=== PATIENT | female | born 1945 | race Caucasian/White ===

== ENCOUNTER → 2017-07-07 09:41 | Outpatient (CLI) | payer MEDICARE, OTHER, SELFPAY ==
[2017-07-07 10:23] VITALS: PULSE 85; PULSE 86; PULSE 91; PULSE 94; PULSE 95; PULSE 96; PULSE 98; O2SAT 91; O2SAT 92; O2SAT 93; O2SAT 96
--- NOTE | 2017-07-07 10:25 | CPS ---
Patient wears 2-3 lpm oxygen at home with ambulation and wears a Bipap at home. Patient had to take a couple of short breaks during testing due to hip pain.
--- NOTE | 2017-07-08 08:06 | WT_ITS ---
PSN 6 Minute Walk Test - 6 Minute Walk Test 6 Minute Walk Test: 6 Minute Walk Test PSN:6-Minute Walk Test Start: 07/07/17 10: 23 Freq: Status: Active Protocol: [id number] Document 07/07/17 10:23 KAREN (Rec: 07/07/17 10:27 KAREN [id number]) 6 Minute Walk Test Date Performed 07/07/17 Time Performed 10:10 Height 5 ft Weight: 57.606 kg Weight in Pounds 127.[address]: Serafin Hernadez Assistive device used: None Pre-test Oxygen Delivery Method Room Air Pulse Ox (%) 93 Pulse Rate (60-100 beats/min) 85 Dyspnea Hipolito Scale (0-10) 0 Exertion Hipolito Scale (6-20) 6 1st minute Oxygen Delivery Method Room Air Pulse Ox (%) 92 Pulse Rate (60-100 beats/min) 91 2nd minute Oxygen Delivery Method Room Air Pulse Ox (%) 91 Pulse Rate (60-100 beats/min) 95 Number of Rests Taken 1 3rd minute Oxygen Delivery Method Room Air Pulse Ox (%) 91 Pulse Rate (60-100 beats/min) 96 4th minute Oxygen Delivery Method Room Air Pulse Ox (%) 93 Pulse Rate (60-100 beats/min) 98 Number of Rests Taken 1 5th minute Oxygen Delivery Method Room Air Pulse Ox (%) 93 Pulse Rate (60-100 beats/min) 91 6th minute Oxygen Delivery Method Room Air Pulse Ox (%) 92 Pulse Rate (60-100 beats/min) 94 Dyspnea Hipolito Scale (0-10) 3 Exertion Hipolito Scale (6-20) 14 Reported Symptoms Increased Work of Breathing Post-test Oxygen Delivery Method Room Air Pulse Ox (%) 96 Pulse Rate (60-100 beats/min) 86 Full Laps Walked 10 Partial Lap, Number of Tiles Walked 47 Total Distance Walked (ft) 637 07/07/17 10:25 Cardiopulmonary Services by Charisse Edwards Patient wears 2-3 lpm oxygen at home with ambulation and wears a Bipap at home. Patient had to take a couple of short breaks during testing due to hip pain. Initialized on 07/07/17 10:25 - END OF NOTE - Interpretation Interpretation: The patient was able to ambulate only 637 feet over the course of 6 minutes on room air with no assistive devices, but 2 breaks secondary to shortness of breath and hip pain. The patient was noted to have a decreased baseline saturation of 93%, but only desaturated to 91% with ambulation. These findings are consistent with a musculoskeletal and respiratory limitation exercise tolerance. - Recommendations Recommendations: No supplemental oxygen is indicated at this time.
== END ==
PROVIDERS: Family Provider Student in an Organized Health Care Education/Training Program; PCP Student in an Organized Health Care Education/Training Program; Visit Provider Internal Medicine Critical Care Medicine
DX: J44.9 Chronic obstructive pulmonary disease, unspecified (principal)
CPT/HCPCS: 94618

== ENCOUNTER → 2017-07-08 08:47 | Outpatient (CLI) | payer MEDICARE, OTHER, SELFPAY ==
--- NOTE | 2017-07-08 14:14 | PFTCOMP ---
COMPLETE PULMONARY FUNCTION TEST INTERPRETATION Brief HPI: Patient is a 71 year old female, currently under the care of Dr. Hernadez, who presents to [facility] for complete pulmonary function tests secondary to diagnosis of COPD. Respiratory therapist reports good effort and reproducible results. Interpretation: Forced expiration spirometry shows a severe large airways obstructive ventilatory defect with an FEV1 of 78% predicted. There is a significant bronchodilator response in FVC by ATS criteria. Spirograms are of good quality and plateau slowly, indicating slowly emptying areas of the lungs. The respiratory flow volume loop shows decreased expiratory flow rates at all lung volumes consistent with airway obstruction. Lung volumes by body plethysmography show a normal total lung capacity at 4.49 L, 112% predicted. FRC and RV are elevated out of proportion. Lung volume measurements are consistent with air-trapping. Diffusion capacity by carbon monoxide is decreased at 47% predicted. The airway resistance is elevated. Compared to previous pulmonary function tests from 12/03/2016, there has been no significant change. Impression: Irreversible severe large airways obstructive ventilatory defect with a symmetric reduction diffusing capacity, resulting in air trapping and consistent with a diagnosis of COPD. There is been no significant change compared to previous.
--- NOTE | 2017-07-08 14:17 | PFTCOMP_ITS ---
COMPLETE PULMONARY FUNCTION TEST INTERPRETATION Brief HPI: Patient is a 71 year old female, currently under the care of Dr. Hernadez , who presents to [facility] for complete pulmonary function tests secondary to diagnosis of COPD. Respiratory therapist reports good effort and reproducible results. Interpretation: Forced expiration spirometry shows a severe large airways obstructive ventilatory defect with an FEV1 of 78% predicted. There is a significant bronchodilator response in FVC by ATS criteria. Spirograms are of good quality and plateau slowly, indicating slowly emptying areas of the lungs. The respiratory flow volume loop shows decreased expiratory flow rates at all lung volumes consistent with airway obstruction. Lung volumes by body plethysmography show a normal total lung capacity at 4.49 L , 112% predicted. FRC and RV are elevated out of proportion. Lung volume measurements are consistent with air-trapping. Diffusion capacity by carbon monoxide is decreased at 47% predicted. The airway resistance is elevated. Compared to previous pulmonary function tests from 12/03/2016, there has been no significant change. Impression: Irreversible severe large airways obstructive ventilatory defect with a symmetric reduction diffusing capacity, resulting in air trapping and consistent with a diagnosis of COPD. There is been no significant change compared to previous.
== END ==
PROVIDERS: Family Provider Student in an Organized Health Care Education/Training Program; PCP Student in an Organized Health Care Education/Training Program; Visit Provider Internal Medicine Critical Care Medicine
DX: J44.9 Chronic obstructive pulmonary disease, unspecified (principal); Z72.0 Tobacco use
CPT/HCPCS: 94060; 94726; 94729

== ENCOUNTER 2017-07-08 18:55 | Inpatient (IN) | payer MEDICARE, OTHER, SELFPAY ==
[2017-07-08] VITALS (9 sets, daily range): BP systolic 113–151; BP diastolic 58–99; PULSE 81–96; RESP 16–24; TEMP 36.3–36.7; O2SAT 95–98; BMI 24.2
--- NOTE | 2017-07-08 19:20 | EKG12_ITS ---
Test Reason : CP Blood Pressure : / mmHG Vent. Rate : 097 BPM Atrial Rate : 097 BPM P-R Int : 158 ms QRS Dur : 076 ms QT Int : 350 ms P-R-T Axes : 083 047 065 degrees QTc Int : 444 ms Sinus rhythm with occasional Premature ventricular complexes Nonspecific ST abnormality Abnormal ECG Confirmed by REBECCA PAREDES ([id number]), editorial project manager ANN MENDIETA ([id number]) on 07/19/2017 6:24:37 PM Referred By: JYOTHI Confirmed By:REBECCA PAREDES
--- NOTE | 2017-07-08 19:20 | RAD_ITS ---
XR Chest 1 View INDICATION: chest pain, SOB COMPARISON: None FINDINGS: Heart size and pulmonary vascularity are within normal limits. The lungs are clear without evidence of airspace consolidation or pleural effusion. The osseous structures are grossly unremarkable. RAD/Chest 1 View (Portable) IMPRESSION: No radiographic evidence of acute intrathoracic disease. at 1946 Reported and signed by: Erin Eller MD Electronically Signed: Erin Eller MD at 19:46 EDT Tel , Service support ,
[2017-07-08] MEDS: Ipratropium/Albuterol Sulfate 3 ML AMPUL.NEB INHALATION (19:32)
[2017-07-08] MEDS: 0.9% Normal Saline 1,000 ML 150 ML IV (19:46)
[2017-07-08] MEDS: Aspirin 81 MG TAB.CHEW 324 MG PO (19:46)
[2017-07-08 19:48] LABS: Absolute Lymphocyte Count 2.08 X10^3/ul (0.83-4.51); Absolute Neutrophil Count 7.4 X10^3/uL (2.0-7.7); Basophil# 0.04 X10^3/uL; Basophil% 0.4 % (0-1); Eosinophil# 0.18 X10^3/uL; Eosinophils% 1.6 % (0-5); Hematocrit 42.7 % (37-47); Lymphocyte # 2.08 X10^3/ul (4.0); Mean Corp Hgb Conc 32.8 g/gl (32-36); Mean Corpuscular Hgb 29.5 pg (27.0-32.0); Mean Corpuscular Volume 90.1 fL (81-99); Mean Platelet Vol. 10.4 fl (6.2-12.0); Monocyte# 1.24 X10^3/uL; Monocyte% 11.3 % (0-10); Neutrophil % 67.4 % (47-70); Platelet Count 283 K/mm3 (150-450); RBC Distribution Width CV 13.6 % (11.6-14.6); RBC Distribution Width SD 44.4 fl (35.1-43.9); Red Blood Count 4.74 M/mm3 (4.2-5.4)
[2017-07-08 19:51] LABS: POSITIVE COUNT NO; POSITIVE DIFFERENTIAL NO; POSITIVE MORPHOLOGY NO
[2017-07-08 20:01] LABS: D-Dimer Quantitative (DVT/PE) < 0.27 FEU/ug/m (0.27-0.49)
[2017-07-08 20:06] LABS: Anion Gap 7 (5-15); BUN 9 mg/dL (7-18); BUN/Creat Ratio 11.2 RATIO (10-20); Calcium,Total 9.2 mg/dL (8.5-10.1); Chloride 104 mmol/L (98-107); EST Glomerular Filtration Rate 75 mL/min (>60); Est Glom Filt Rate - Afr Amer 91 mL/min (>60); Estimated Creatinine Clearance 47.67 ml/min; Glucose 113 mg/dL (74-106); Potassium 3.6 mmol/L (3.5-5.1); Sodium Level 139 mmol/L (136-145)
[2017-07-08] MEDS: MethylPREDNISolone 125 MG/2 ML Vial IV (20:46)
--- NOTE | 2017-07-08 20:49 | PCM.HP.STD ---
Problem List (1) COPD exacerbation Status: Acute (2) Chest pain Status: Acute (3) Tobacco abuse Status: Chronic (4) COPD (chronic obstructive pulmonary disease) Status: Chronic Qualifiers: COPD type: unspecified COPD Qualified Code(s): J44.9 - Chronic obstructive pulmonary disease, unspecified (5) HTN (hypertension) Status: Chronic Qualifiers: Hypertension type: essential hypertension Qualified Code(s): I10 - Essential (primary) hypertension (6) Diabetes Status: Chronic Qualifiers: Diabetes mellitus type: type 2 Diabetes mellitus moth exterminator insulin use: without snf use Diabetes mellitus complication status: with unspecified complications Qualified Code(s): E11.8 - Type 2 diabetes mellitus with unspecified complications (7) Psoriasis Status: Chronic (8) Chronic respiratory failure with hypoxia Status: Chronic History of Present Illness Date of Admission: 07/08/17 Chief Complaint: Dyspnea, Chest Pain The patient is a 71 y/o F w/ PMHx: Tobacco use, Chronic COPD w/ Chronic Hypoxic Respiratory Failure (2L NC), Diabetes mellitus type II, HTN, HLD, Psoriasis who presents to the [facility] ED on 07/08/17 with history of onset severe onset stabbing chest discomfort rated 10/10, specifically focally underneath bilateral breast with associated dyspnea with no diaphoresis, nausea or emesis resolving after approximately 15-30 seconds with reoccurrence with concurrent worsening dyspnea and wheezing. In the emergency room upon presentation patient was extremely dyspneic with increased work of breathing, accessory muscle usage and wheezing diffusely. In the emergency room following aerosol administration patient has resolution of chest discomfort which had recurred and also dyspnea as well as wheezing. Workup in the ED included afebrile, heart rate 96, BP 113/58, respiratory rate currently 20, 97% on 2 L nasal cannula, CBC with WBC 11, hemoglobin 14, platelet 283 with increased mono percent, d-dimer unremarkable, BMP with glucose 113, troponin less than 0.015, EKG with nonspecific ST changes which appear chronic compared to prior, chest x-ray with chronic changes. In the emergency room patient administered DuoNeb, albuterol, aspirin, Solu-Medrol, normal saline. 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 Nocturnal hypoxia G47.34 Shortness of breath R06.02 Stage 3 severe COPD by GOLD classification J44.9 Allergies hydrocodone Adverse Reaction (Verified 07/08/17 19:01) Nausea levofloxacin [From Levaquin] Adverse Reaction (Verified 07/08/17 19:01) Shortness of breath Home Medications: Ambulatory Orders Medication Instructions Recorded Albuterol Aerosols [Ventolin 2.5 mg INHALATION Q4H PRN #25 vial 09/04/16 Aerosols] Benazepril/Hydrochlorothiazide 1 tab PO DAILY 09/04/16 [Benazepril-Hctz 10-12.5 mg Tab] Nebulizer [Aeroneb Go Nebulizer] 1 ea MC Q4H PRN PRN #1 ea 09/04/16 Omeprazole 1 tab PO DAILY 09/04/16 Sertraline HCl [Zoloft] 50 mg PO DAILY 09/04/16 Ascorbic Acid [Vitamin C] 1 tab PO DAILY 11/01/16 Cranberry 1 tab PO DAILY 11/01/16 Ezetimibe [Zetia] 10 mg PO DAILY 11/01/16 Montelukast [Singulair] 10 mg PO DAILY 11/01/16 Ubidecarenone [Coenzyme Q-10] 1 tab PO DAILY 11/01/16 Budesonide/Formoterol 160/4.5 2 puff INHALATION BID 11/04/16 [Symbicort 160/4.5 Mcg Inhaler (SP)] glipiZIDE [Glucotrol] 10 mg PO BIDAC #60 tab 11/04/16 albuterol sulfate HFA 90 2 puff INHALATION Q4H PRN g 01/20/17 mcg/actuation aerosol inhaler ipratropium 20 mcg-albuterol 100 1 puff INHALATION Q6H PRN 01/20/17 mcg/actuation mist for inhalation tiotropium bromide 2.5 2 puff INHALATION QDAY #1 ea 01/20/17 mcg/actuation mist for inhalation Surgical History: Surgical History (Last Reviewed 04/14/17 @ 11:05 by Marilia Hurley) H/O tubal ligation Z98.51 1975 Surgical History: no surgical history Psychiatric History: No pertinent psych hx 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 Tobacco Use: Cigarettes Alcohol: None Drugs: None - *Family History Maternal Family History: Family History (Last Reviewed 04/14/17 @ 11:05 by Marilia Hurley) Mother Heart disease History Items: Heart Disease Paternal Family History: Family History (Last Reviewed 04/14/17 @ 11:05 by Marilia Hurley) Mother Heart disease History Items: - - Father with black lung in addition to history of Alzheimer's disease. Sibling Family History: Family History (Last Reviewed 04/14/17 @ 11:05 by Marilia Hurley) Mother Heart disease History Items: Cancer, - - skin cancer Review of Systems Constitutional: Reports: Malaise, Weakness, Fatigue. Denies: Chills, Fever, Weight Change HEENT: Denies: Head Aches, Sinus Congestion, Sinus Drainage Cardiovascular: Reports: Chest Pain. Denies: Palpitations Respiratory: Reports: Shortness of Breath, Shortness of breath at rest, Shortness of breath upon exertion, Wheezing. Denies: Cough, Sputum production Gastrointestinal: Denies: Abdominal Pain, Nausea, Vomiting Genitourinary: Denies: Dysuria Musculoskeletal: Reports: Back Pain. Denies: Joint Pain, Joint Tenderness Skin: Denies: Rash, Wounds Neurological: Denies: Numbness, Tingling, Focal weakness Psychiatric: Denies: Anxiety, Depression, Homicidal Ideations, Suicidal Ideations Hematologic/ Lymphatic: Denies: Easy Bruising, Easy Bleeding VTE Information - Inpt Only VTE Present on Admission: No VTE Mechan Device Prophylaxis: SCD's VTE Pharm Prophylaxis ordered?: Yes Patient Problems: Active and Suspected Problems (Last Reviewed 04/14/17 @ 11:05 by Marilia Hurley) COPD exacerbation (Acute) Chest pain (Acute) Subjective: Seated upright in the ED bed, notes feeling improved since initial presentation, less short of breath and no recurrent stabbing discomfort since aerosol administration. Objective: Physical Examination: General: awake, alert, oriented x 3 and cooperative, seated upright in the ED bed, notes improvement since initial presentation with no further chest discomfort and marketed improvement in breathing. Skin: normal color, turgor, no icterus, cyanosis except for diffuse extremity psoriasis which she notes is currently well controlled and following with physician outpatient. HEENT: AT/NC, EOMI, PERRLA, mildly dry MM, no carotid bruits or JVD noted. Lungs: Severely diminished breath sounds diffusely, greater bilateral bases, still soft and expiratory wheeze noted, improved respiratory rate, no accessory muscle usage currently, remarkably improved since initial ED presentation. Heart: Regular rate and rhythm; no gallop, rub audible. Abdomen: soft, NTTP, ND, normal BS, no HSM. Extremities: no cyanosis, clubbing, or edema. Neurological: patient awake, alert, oriented x 3; cognitive function intact; pupils equally reactive to light and accomodation; cranial nerves II-XII grossly normal, moving all 4 extremities, no focal deficits, strength severely globally decreased secondary to acute presentation. Psychiatric: affect appears normal, no acute evidence of depressive or anxiety feelings. - Physical Exam Vital Signs Temp Pulse Resp BP Pulse Ox 97.4 F L 81 18 113/58 L 96 07/08/17 18:57 07/08/17 20:47 07/08/17 20:47 07/08/17 20:47 07/08/17 20:47 Oxygen Flow Rate (L/min) 2 Oxygen Delivery Method Nasal Cannula Weight: 123 lb 14.397 oz Body Mass Index (BMI) 24.2 Laboratory Tests Past 24 Hrs 07/08/17 07/08/17 07/08/17 19:35 19:35 19:35 WBC 11.0 RBC 4.74 Hgb 14.0 Hct 42.7 MCV 90.1 MCH 29.5 MCHC 32.8 RDW 13.6 RDW Differential 44.4 H Plt Count 283 MPV 10.4 Immature Gran % (Auto) 0.300 Neut % (Auto) 67.4 Lymph % (Auto) 19.0 Walsh % (Auto) 11.3 H Eos % (Auto) 1.6 Baso % (Auto) 0.4 Absolute Neuts (auto) 7.4 Absolute Lymphs (auto) 2.08 Total Counted Not Reportable D-Dimer Quant (PE/DVT) < 0.27 L Sodium 139 Potassium 3.6 Chloride 104 Carbon Dioxide 28.0 Anion Gap 7 BUN 9 Creatinine 0.80 Estim Creat Clear Calc 47.67 Est GFR (MDRD) Af Amer 91 Est GFR (MDRD) Non-Af 75 BUN/Creatinine Ratio 11.2 Glucose 113 H Calcium 9.2 Troponin I < 0.015 Assessment/Plan All Active Problems (Last Reviewed 04/14/17 @ 11:05 by Marilia Hurley) COPD exacerbation (Acute) Chest pain (Acute) The patient is a 71 y/o F w/ PMHx: Tobacco use, Chronic COPD w/ Chronic Hypoxic Respiratory Failure (2L NC), Diabetes mellitus type II, HTN, HLD, Psoriasis who presents to the [facility] ED on 07/08/17 with history of onset severe onset stabbing chest discomfort rated 10/10, specifically focally underneath bilateral breast with associated dyspnea with no diaphoresis, nausea or emesis resolving after approximately 15-30 seconds with reoccurrence with concurrent worsening dyspnea and wheezing. (1) Acute on Chronic COPD exacerbation Chronic Hypoxic Respiratory Failure: CXR w/ chronic changes, CBC on admission w/ no marked WBC elevation or shift, afebrile. Will admit to PCU given concurrent chest pain and EKG with non-specific ST-T changes although chronic appearing, maintain on oxygen with wean as tolerated to home oxygen supplementation, continue ATC duonebs, PRN albuterol, IV methylprednisolone, HOB, IS parameters, pending sputum cultures and respiratory viral panel. (2) Atypical Chest Pain: EKG in ED with non-specific ST-T changes although chronic appearing, CXR w/ chronic changes, initial trop <0.015. Will place on a monitored bed to assure no acute myocardial infarction with serial cardiac enzymes and EKGs. ASA, NG, morphine. FLP in AM. Mag pending. Given acute COPD exacerbation will defer initiation of stress testing until improved and possibly secondary to her acute pulmonary presentation. (3) Diabetes mellitus type II: Hold oral home regimen, ADA diet, accu checks w/ ISS. (4) Hypertension: Continue home regimen including SOTERO inhibitor, hydrochlorothiazide, PRN hydralazine. (5) Hyperlipidemia: Continue home Zetia regimen, fasting lipid panel in a.m. (6) Anxiety and Depression: Maintain on home regimen sertraline. (7) Tobacco Abuse: Encouraged cessation, inpatient consultation per RT, NR if desired. (8) GERD: PPI. (9) DVT Prophylaxis: SCDs, lovenox. Code Visit Inpatient E&M: 59950 Init Hosp L3
--- NOTE | 2017-07-08 21:00 | HP.PCM_ITS ---
Problem List (1) COPD exacerbation Status: Acute (2) Chest pain Status: Acute (3) Tobacco abuse Status: Chronic (4) COPD (chronic obstructive pulmonary disease) Status: Chronic Qualifiers: COPD type: unspecified COPD Qualified Code(s): J44.9 - Chronic obstructive pulmonary disease, unspecified (5) HTN (hypertension) Status: Chronic Qualifiers: Hypertension type: essential hypertension Qualified Code(s): I10 - Essential (primary) hypertension (6) Diabetes Status: Chronic Qualifiers: Diabetes mellitus type: type 2 Diabetes mellitus marine oil terminal superintendent insulin use: without detention use Diabetes mellitus complication status: with unspecified complications Qualified Code(s): E11.8 - Type 2 diabetes mellitus with unspecified complications (7) Psoriasis Status: Chronic (8) Chronic respiratory failure with hypoxia Status: Chronic History of Present Illness Date of Admission: 07/08/17 Chief Complaint: Dyspnea, Chest Pain The patient is a 71 y/o F w/ PMHx: Tobacco use, Chronic COPD w/ Chronic Hypoxic Respiratory Failure (2L NC), Diabetes mellitus type II, HTN, HLD, Psoriasis who presents to the [facility] ED on 07/08/17 with history of onset severe onset stabbing chest discomfort rated 10/10, specifically focally underneath bilateral breast with associated dyspnea with no diaphoresis, nausea or emesis resolving after approximately 15-30 seconds with reoccurrence with concurrent worsening dyspnea and wheezing. In the emergency room upon presentation patient was extremely dyspneic with increased work of breathing, accessory muscle usage and wheezing diffusely. In the emergency room following aerosol administration patient has resolution of chest discomfort which had recurred and also dyspnea as well as wheezing. Workup in the ED included afebrile, heart rate 96, BP 113/58, respiratory rate currently 20, 97% on 2 L nasal cannula, CBC with WBC 11, hemoglobin 14, platelet 283 with increased mono percent, d-dimer unremarkable, BMP with glucose 113, troponin less than 0.015, EKG with nonspecific ST changes which appear chronic compared to prior, chest x-ray with chronic changes. In the emergency room patient administered DuoNeb, albuterol, aspirin, Solu-Medrol , normal saline. 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 Nocturnal hypoxia G47.34 Shortness of breath R06.02 Stage 3 severe COPD by GOLD classification J44.9 Allergies hydrocodone Adverse Reaction (Verified 07/08/17 19:01) Nausea levofloxacin [From Levaquin] Adverse Reaction (Verified 07/08/17 19:01) Shortness of breath Home Medications: Ambulatory Orders Medication Instructions Recorded Albuterol Aerosols [Ventolin 2.5 mg INHALATION Q4H PRN #25 vial 09/04/16 Aerosols] Benazepril/Hydrochlorothiazide 1 tab PO DAILY 09/04/16 [Benazepril-Hctz 10-12.5 mg Tab] Nebulizer [Aeroneb Go Nebulizer] 1 ea MC Q4H PRN PRN #1 ea 09/04/16 Omeprazole 1 tab PO DAILY 09/04/16 Sertraline HCl [Zoloft] 50 mg PO DAILY 09/04/16 Ascorbic Acid [Vitamin C] 1 tab PO DAILY 11/01/16 Cranberry 1 tab PO DAILY 11/01/16 Ezetimibe [Zetia] 10 mg PO DAILY 11/01/16 Montelukast [Singulair] 10 mg PO DAILY 11/01/16 Ubidecarenone [Coenzyme Q-10] 1 tab PO DAILY 11/01/16 Budesonide/Formoterol 160/4.5 2 puff INHALATION BID 11/04/16 [Symbicort 160/4.5 Mcg Inhaler (SP)] glipiZIDE [Glucotrol] 10 mg PO BIDAC #60 tab 11/04/16 albuterol sulfate HFA 90 2 puff INHALATION Q4H PRN g 01/20/17 mcg/actuation aerosol inhaler ipratropium 20 mcg-albuterol 100 1 puff INHALATION Q6H PRN 01/20/17 mcg/actuation mist for inhalation tiotropium bromide 2.5 2 puff INHALATION QDAY #1 ea 01/20/17 mcg/actuation mist for inhalation Surgical History: Surgical History (Last Reviewed 04/14/17 @ 11:05 by Marilia Hurley) H/O tubal ligation Z98.51 1975 Surgical History: no surgical history Psychiatric History: No pertinent psych hx 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 Tobacco Use: Cigarettes Alcohol: None Drugs: None - *Family History Maternal Family History: Family History (Last Reviewed 04/14/17 @ 11:05 by Marilia Hurley) Mother Heart disease History Items: Heart Disease Paternal Family History: Family History (Last Reviewed 04/14/17 @ 11:05 by Marilia Hurley) Mother Heart disease History Items: - - Father with black lung in addition to history of Alzheimer's disease. Sibling Family History: Family History (Last Reviewed 04/14/17 @ 11:05 by Marilia Hurley) Mother Heart disease History Items: Cancer, - - skin cancer Review of Systems Constitutional: Reports: Malaise, Weakness, Fatigue. Denies: Chills, Fever, Weight Change HEENT: Denies: Head Aches, Sinus Congestion, Sinus Drainage Cardiovascular: Reports: Chest Pain. Denies: Palpitations Respiratory: Reports: Shortness of Breath, Shortness of breath at rest, Shortness of breath upon exertion, Wheezing. Denies: Cough, Sputum production Gastrointestinal: Denies: Abdominal Pain, Nausea, Vomiting Genitourinary: Denies: Dysuria Musculoskeletal: Reports: Back Pain. Denies: Joint Pain, Joint Tenderness Skin: Denies: Rash, Wounds Neurological: Denies: Numbness, Tingling, Focal weakness Psychiatric: Denies: Anxiety, Depression, Homicidal Ideations, Suicidal Ideations Hematologic/ Lymphatic: Denies: Easy Bruising, Easy Bleeding VTE Information - Inpt Only VTE Present on Admission: No VTE Mechan Device Prophylaxis: SCD's VTE Pharm Prophylaxis ordered?: Yes Patient Problems: Active and Suspected Problems (Last Reviewed 04/14/17 @ 11:05 by Marilia Hurley) COPD exacerbation (Acute) Chest pain (Acute) Subjective: Seated upright in the ED bed, notes feeling improved since initial presentation , less short of breath and no recurrent stabbing discomfort since aerosol administration. Objective: Physical Examination: General: awake, alert, oriented x 3 and cooperative, seated upright in the ED bed, notes improvement since initial presentation with no further chest discomfort and marketed improvement in breathing. Skin: normal color, turgor, no icterus, cyanosis except for diffuse extremity psoriasis which she notes is currently well controlled and following with physician outpatient. HEENT: AT/NC, EOMI, PERRLA, mildly dry MM, no carotid bruits or JVD noted. Lungs: Severely diminished breath sounds diffusely, greater bilateral bases, still soft and expiratory wheeze noted, improved respiratory rate, no accessory muscle usage currently, remarkably improved since initial ED presentation. Heart: Regular rate and rhythm; no gallop, rub audible. Abdomen: soft, NTTP, ND, normal BS, no HSM. Extremities: no cyanosis, clubbing, or edema. Neurological: patient awake, alert, oriented x 3; cognitive function intact; pupils equally reactive to light and accomodation; cranial nerves II-XII grossly normal, moving all 4 extremities, no focal deficits, strength severely globally decreased secondary to acute presentation. Psychiatric: affect appears normal, no acute evidence of depressive or anxiety feelings. - Physical Exam Vital Signs Temp Pulse Resp BP Pulse Ox 97.4 F L 81 18 113/58 L 96 07/08/17 18:57 07/08/17 20:47 07/08/17 20:47 07/08/17 20:47 07/08/17 20:47 Oxygen Flow Rate (L/min) 2 Oxygen Delivery Method Nasal Cannula Weight: 123 lb 14.397 oz Body Mass Index (BMI) 24.2 Laboratory Tests Past 24 Hrs 07/08/17 07/08/17 07/08/17 19:35 19:35 19:35 WBC 11.0 RBC 4.74 Hgb 14.0 Hct 42.7 MCV 90.1 MCH 29.5 MCHC 32.8 RDW 13.6 RDW Differential 44.4 H Plt Count 283 MPV 10.4 Immature Gran % (Auto) 0.300 Neut % (Auto) 67.4 Lymph % (Auto) 19.0 [place] % (Auto) 11.3 H Eos % (Auto) 1.6 Baso % (Auto) 0.4 Absolute Neuts (auto) 7.4 Absolute Lymphs (auto) 2.08 Total Counted Not Reportable D-Dimer Quant (PE/DVT) < 0.27 L Sodium 139 Potassium 3.6 Chloride 104 Carbon Dioxide 28.0 Anion Gap 7 BUN 9 Creatinine 0.80 Estim Creat Clear Calc 47.67 Est GFR (MDRD) Af Amer 91 Est GFR (MDRD) Non-Af 75 BUN/Creatinine Ratio 11.2 Glucose 113 H Calcium 9.2 Troponin I < 0.015 Assessment/Plan All Active Problems (Last Reviewed 04/14/17 @ 11:05 by Marilia Hurley) COPD exacerbation (Acute) Chest pain (Acute) The patient is a 71 y/o F w/ PMHx: Tobacco use, Chronic COPD w/ Chronic Hypoxic Respiratory Failure (2L NC), Diabetes mellitus type II, HTN, HLD, Psoriasis who presents to the [facility] ED on 07/08/17 with history of onset severe onset stabbing chest discomfort rated 10/10, specifically focally underneath bilateral breast with associated dyspnea with no diaphoresis, nausea or emesis resolving after approximately 15-30 seconds with reoccurrence with concurrent worsening dyspnea and wheezing. (1) Acute on Chronic COPD exacerbation Chronic Hypoxic Respiratory Failure: CXR w/ chronic changes, CBC on admission w/ no marked WBC elevation or shift, afebrile. Will admit to PCU given concurrent chest pain and EKG with non- specific ST-T changes although chronic appearing, maintain on oxygen with wean as tolerated to home oxygen supplementation, continue ATC duonebs, PRN albuterol , IV methylprednisolone, HOB, IS parameters, pending sputum cultures and respiratory viral panel. (2) Atypical Chest Pain: EKG in ED with non-specific ST-T changes although chronic appearing, CXR w/ chronic changes, initial trop <0.015. Will place on a monitored bed to assure no acute myocardial infarction with serial cardiac enzymes and EKGs. ASA, NG, morphine. FLP in AM. Mag pending. Given acute COPD exacerbation will defer initiation of stress testing until improved and possibly secondary to her acute pulmonary presentation. (3) Diabetes mellitus type II: Hold oral home regimen, ADA diet, accu checks w/ ISS. (4) Hypertension: Continue home regimen including SOTERO inhibitor, hydrochlorothiazide, PRN hydralazine. (5) Hyperlipidemia: Continue home Zetia regimen, fasting lipid panel in a.m. (6) Anxiety and Depression: Maintain on home regimen sertraline. (7) Tobacco Abuse: Encouraged cessation, inpatient consultation per RT, NR if desired. (8) GERD: PPI. (9) DVT Prophylaxis: SCDs, lovenox. Code Visit Inpatient E&M: 06057 Init Hosp L3
--- NOTE | 2017-07-08 21:13 | ED.DCSUM_ITS ---
- ER Visit Summary Date of Service: 07/08/17 Chief Complaint: [Chest pain] History of Present Illness: The patient is a 71 F [presents with chest pain underneath both breasts that started around 6:30 PM. Patient states that she is just gotten out of the shower when she developed the discomfort. Patient describes it as stabbing and rates it a 6 out of 10 currently. Patient states that she was in [place] last week. Patient denies any leg swelling. Patient tells me that she had pulmonary function testing done today as she has a history of COPD. Patient also has a history of diabetes, hypertension, and high cholesterol. Patient has no heart history. Patient states that the pain does not radiate anywhere and she has had no nausea or vomiting, diaphoresis, or shortness of breath.] Physical Examination: [HEENT-PERRLA, EOMI. Cranial nerves II through XII grossly intact. TMs clear. Mucous membranes moist. No adenopathy. Cardiovascular-regular rate and rhythm without murmur or ectopy Lungs-, patient tachypneic, decreased breath sounds bilaterally, expiratory wheezes throughout. No accessory muscle use or retractions. Abdomen-normoactive bowel sounds, soft, nontender, no rebound or rigidity, no peritoneal signs. Extremities-intact ?4, normal range of motion, normal pulses, atraumatic ] Test Results: [EKG obtained on arrival showed a sinus rhythm with a ventricular rate of 97 bpm with some nonspecific ST changes. CBC with differential showed a white count of 11, hemoglobin 14, hematocrit 43, platelets 283. Chemistries unremarkable. Troponin was less than 0.015. D-dimer was normal less than 0.27. Chest x-ray showed nothing acute.] Emergency Department Course and Treatment: [Patient received DuoNeb aerosol and Solu-Medrol]. Patient's wheezing resolved and patient's chest pain resolved. Treatment Plan: [Admit for further workup and evaluation] Disposition: [Admit] Impression: [Chest pain COPD exacerbation] This note was generated with [employer] dictation software. It may contain incorrect words, spelling, and punctuation that were not noted in review of the chart prior to signing ED Disposition - Plan for ED Patient: Chief Complaint: Chest Pain Referrals: Chico Bejarano DO [Primary Care Provider] -
[2017-07-08 23:55] LABS: Magnesium 1.9 mg/dL (1.6-2.6)
[2017-07-09] VITALS (15 sets, daily range): BP systolic 121–164; BP diastolic 57–71; PULSE 82–108; RESP 16–20; TEMP 36.7–36.9; O2SAT 94–96; BMI 24.3
[2017-07-09] MEDS: guaiFENesin 1,200 MG Tablet 1200 MG PO ×3 (01:19→21:48)
[2017-07-09 01:36] LABS: Bedside Glucose 299 mg/dL (70-110)
[2017-07-09] MEDS: Ipratropium/Albuterol Sulfate 3 ML AMPUL.NEB INHALATION ×5 (02:40→19:15)
[2017-07-09 03:10] LABS: Hematocrit 41.7 % (37-47); Hemoglobin 13.2 g/dl (12.0-15.0); Mean Corp Hgb Conc 31.7 g/gl (32-36); Mean Corpuscular Hgb 28.6 pg (27.0-32.0); Mean Corpuscular Volume 90.3 fL (81-99); Mean Platelet Vol. 10.7 fl (6.2-12.0); Platelet Count 275 K/mm3 (150-450); RBC Distribution Width CV 13.7 % (11.6-14.6); RBC Distribution Width SD 45.1 fl (35.1-43.9); Red Blood Count 4.62 M/mm3 (4.2-5.4); White Blood Count 10.8 K/mm3 (4.4-11.0)
[2017-07-09 03:11] LABS: Anion Gap 9 (5-15); BUN 13 mg/dL (7-18); BUN/Creat Ratio 13.6 RATIO (10-20); Calcium,Total 8.7 mg/dL (8.5-10.1); Chloride 109 mmol/L (98-107); Cholesterol 201 mg/dL (200); Creatinine, Serum 0.95 mg/dL (0.55-1.02); EST Glomerular Filtration Rate 62 mL/min (>60); Est Glom Filt Rate - Afr Amer 75 mL/min (>60); Estimated Creatinine Clearance 40.15 ml/min; Glucose 222 mg/dL (74-106); High Density Lipoprotein 48 mg/dL; Potassium 3.7 mmol/L (3.5-5.1); Sodium Level 145 mmol/L (136-145); Triglycerides 114 mg/dL; Very Low Density Lipoprotein 23 mg/dL (5-40)
[2017-07-09 03:19] LABS: Scan Indicated on CBC? Y/N NO
[2017-07-09] MEDS: 0.9% Normal Saline 1,000 ML 125 ML IV (03:21)
[2017-07-09] MEDS: Acetaminophen 325 MG Tablet 650 MG PO ×2 (03:21→11:47)
[2017-07-09 03:31] LABS: Bedside Glucose 272 mg/dL (70-110)
[2017-07-09 07:06] LABS: Bedside Glucose 225 mg/dL (70-110)
[2017-07-09] MEDS: Aspirin E.C. 81 MG Tablet PO (08:40)
[2017-07-09] MEDS: Enoxaparin 40 MG/0.4 ML Syringe SC (08:40)
[2017-07-09] MEDS: Pantoprazole Sodium 20 MG Tablet PO (08:43)
[2017-07-09] MEDS: Montelukast 10 MG Tablet PO (08:43)
[2017-07-09] MEDS: Ezetimibe 10 MG Tablet PO (08:43)
[2017-07-09] MEDS: Sertraline 50 MG Tablet PO (08:44)
[2017-07-09] MEDS: HYDROCHLOROTHIAZIDE 12.5 MG CAPSULE PO (08:48)
[2017-07-09] MEDS: Lisinopril 10 MG Tablet PO (08:48)
--- NOTE | 2017-07-09 09:26 | CASEMGMT ---
RN CM Assessment complete. DC Plan: Home on discharge. Intro role of CM to patient in room. States she is independent, does not use ambulatory DME. Has Home O2, Bipap and nebulizer. No dc needs identified. Cayetano SAINZN RN ACM
[2017-07-09 11:26] LABS: Bedside Glucose 236 mg/dL (70-110)
--- NOTE | 2017-07-09 11:46 | NURSING ---
wound photo: right arm skin tear
[2017-07-09] MEDS: 0.9% NaCl Peripheral Flush Adult/Peds IV ×2 (14:44→21:49)
--- NOTE | 2017-07-09 15:43 | CHAPLAIN ---
Type of Pastoral Visit _x__ Initial Visit ___ Follow-up Visit ___ On-call Visit ___ General Patient Visit ___ Spiritual Assessment ___ Family Conference ___ Bereavement ___ Rapid Response ___ Code Blue ___ Other (describe below) Pastoral Care Referral From _x__ Patient ___ Family ___ Nurse ___ Physician ___ Waxer Tender ___ Guzzler Builder ___ Other (describe below) Sacrament/Intervention _x__ Active listening ___ Anointing ___ Samaritan ___ Bereavement ___ Communion ___ Aye exploration ___ _x__ Life review _x__ Prayer ___ Reconciliation ___ Sacrament of Sick ___ Supportive presence ___ Wedding ___ Other (describe below) Pastoral Comments
[2017-07-09 16:46] LABS: Bedside Glucose 229 mg/dL (70-110)
--- NOTE | 2017-07-09 20:43 | PCM.PROGNOTE ---
Patient Problems: Active and Suspected Problems (Last Reviewed 04/14/17 @ 11:05 by Marilia Hurley) COPD exacerbation (Acute) Chest pain (Acute) Subjective: The patient is a 71-year-old female with a past medical history of COPD, tobacco dependence, hypertension, diabetes mellitus type 2, psoriasis, chronic respiratory failure with hypoxemia and hyperlipidemia who presented to the emergency department at [facility] on 07/08/2017 complaining of severe lower chest/upper abdominal pain after getting out of the shower. She has no hx of CAD. She has never had a stress test. In the ED she was wheezing diffusely and was in respiratory distress. She had resolution of the chest pain and the SOB after an aerosol in the ED. D- Dimer was unremarkable. She was afebrile. She was 97% saturated on a 2 L nasal cannula. EKG showed nonspecific ST and T-wave changes which did not appear to be significantly different than prior EKGs. Chest x-ray showed no acute findings. She was admitted to a monitored bed on PCU and serial cardiac enzymes were obtained and are negative. She did tell me that a couple days ago her had to give her the Heimlich manuever when she was choking on a piece of hard melon. She currently has no CP and no SOB. she denies palpitations. She has been afebrile since admission. Vital signs are stable but the pulse rate increases with activity. White blood cell count is still within normal limits. Electrolytes are unremarkable and the BUN is 13 with a creatinine of 0.95. Sugars are not adequately controlled and this is likely due to the steroids. - Physical Exam General: Alert, Oriented x3, Cooperative, No apparent distress HEENT: Atraumatic, PERRLA, EOMI, Normocephalic Neck: Supple, No Nodes, No Nuchal Rigidity, Trachea Midline, Thyroid Normal Size and Texture, Carotid Bruit, Right Lungs: No rhonchi, No rales, Diminished, Wheezes - Rare mild expiratory wheeze, - - She has no conversational dyspnea and is not tachypneic at rest. She has no accessory muscle use. There is symmetric expansion of the chest. Cardiovascular: Regular rate, Regular Rhythm, Normal S1, Normal S2, No Ectopic Activity, No rub noted, No Gallop Abdomen: Bowel Sounds Present, Soft, Non Tender, Non-Distended Extremities: No clubbing, No cyanosis, No edema Neurological: Cranial nerves II-XII grossly intact, Neuro grossly intact Psych/Mental Status: Normal Affect, Appropriate Vital Signs Temp Pulse Resp BP Pulse Ox 98.4 F 106 H 16 121/57 H 95 07/09/17 15:00 07/09/17 19:12 07/09/17 15:00 07/09/17 15:00 07/09/17 15:00 Oxygen Flow Rate (L/min) 2 Oxygen Delivery Method Nasal Cannula Weight: 124 lb 8.979 oz Body Mass Index (BMI) 24.3 Intake and Output for Last 24 Hours 07/07/17 07/08/17 07/09/17 23:59 23:59 23:59 Intake Total 1732 / 1732 Balance 1732 / 1732 Microbiology Past 72 Hours 07/09/17 05:25 Gram Stain - Final Sputum, Expectorated/Coughed 07/09/17 00:30 Respiratory Panel (PCR) - Final Mucosa - Nasopharyngeal Laboratory Tests Past 24 Hrs 07/08/17 07/08/17 07/09/17 23:03 23:03 02:33 WBC RBC Hgb Hct MCV MCH MCHC RDW RDW Differential Plt Count MPV Sodium 145 Potassium 3.7 Chloride 109 H Carbon Dioxide 27.0 Anion Gap 9 BUN 13 Creatinine 0.95 Estim Creat Clear Calc 40.15 Est GFR (MDRD) Af Amer 75 Est GFR (MDRD) Non-Af 62 BUN/Creatinine Ratio 13.6 Glucose 222 H Calcium 8.7 Magnesium 1.9 Troponin I < 0.015 Triglycerides 114 Cholesterol 201 H LDL Cholesterol 130 VLDL Cholesterol 23 HDL Cholesterol 48 07/09/17 07/09/17 02:33 02:33 WBC 10.8 RBC 4.62 Hgb 13.2 Hct 41.7 MCV 90.3 MCH 28.6 MCHC 31.7 L RDW 13.7 RDW Differential 45.1 H Plt Count 275 MPV 10.7 Sodium Potassium Chloride Carbon Dioxide Anion Gap BUN Creatinine Estim Creat Clear Calc Est GFR (MDRD) Af Amer Est GFR (MDRD) Non-Af BUN/Creatinine Ratio Glucose Calcium Magnesium Troponin I < 0.015 Triglycerides Cholesterol LDL Cholesterol VLDL Cholesterol HDL Cholesterol POC Glucose 07/09/17 07/09/17 07/09/17 16:37 11:18 06:44 POC Glucose 229 H 236 H 225 H 07/09/17 07/09/17 03:08 01:28 POC Glucose 272 H 299 H Medical Necessity - Tobacco Use Smoking Status: Current every day smoker Tobacco Use: Cigarettes Assessment/Plan All Active Problems (Last Reviewed 04/14/17 @ 11:05 by Marilia Hurley) COPD exacerbation (Acute) Chest pain (Acute) Impressions 1. Acute exacerbation of COPD 2. Chronic hypoxic respiratory failure 3. Atypical chest pain-suspect this may be related to the Heimlich maneuver performed on her by her a couple days ago 4. Diabetes mellitus type 2 5. Hypertension 6. Hyperlipidemia 7. Anxiety/depression 8. Tobacco dependence with cigarettes-smoking cessation counseling given 9. GERD The chest pain is atypical but she has multiple risk factors for coronary artery disease so we will proceed with a pharmacologic nuclear stress test in the a.m. Decrease the Solu-Medrol to 40 mg IV every 12 hours and suspect will be able to transition to prednisone in the a.m. Continue Enoxaparin for DVT prophylaxis Code Visit Inpatient E&M: 08421 Subs Hosp L2
[2017-07-09 21:56] LABS: Bedside Glucose 307 mg/dL (70-110)
[2017-07-10 03:10] VITALS: PULSE 84
[2017-07-10 04:00] VITALS: BP 127/64; PULSE 100; RESP 16; TEMP 36.7; O2SAT 93
--- NOTE | 2017-07-10 05:55 | EKG12_ITS ---
Test Reason : ADM EKG Blood Pressure : / mmHG Vent. Rate : 091 BPM Atrial Rate : 091 BPM P-R Int : 170 ms QRS Dur : 080 ms QT Int : 368 ms P-R-T Axes : 083 058 067 degrees QTc Int : 452 ms Normal sinus rhythm Nonspecific ST abnormality Abnormal ECG Confirmed by LAKISHA JACOBSON, TIESHA ([id number]), multimedia editor ANN MENDIETA ([id number]) on 07/23/2017 1:20:44 PM Referred By: BAUTISTA Confirmed By:TIESHA BANUELOS MD
[2017-07-10] MEDS: Aspirin E.C. 81 MG Tablet PO (06:11)
[2017-07-10] MEDS: 0.9% NaCl Peripheral Flush Adult/Peds IV (06:11)
[2017-07-10 06:32] LABS: Absolute Lymphocyte Count 0.85 X10^3/ul (0.83-4.51); Absolute Neutrophil Count 28.1 X10^3/uL (2.0-7.7); Hematocrit 42.2 % (37-47); Hemoglobin 13.5 g/dl (12.0-15.0); Lymphocyte # 0.85 X10^3/ul (4.0); Lymphocyte % 2.8 % (19-41); Mean Corpuscular Hgb 28.8 pg (27.0-32.0); Mean Corpuscular Volume 90.2 fL (81-99); Mean Platelet Vol. 10.6 fl (6.2-12.0); Monocyte# 1.07 X10^3/uL; Monocyte% 3.6 % (0-10); Neutrophil # 28.09 X10^3/uL (2.7-7.7); Neutrophil % 93.3 % (47-70); Platelet Count 312 K/mm3 (150-450); RBC Distribution Width SD 45.7 fl (35.1-43.9); Red Blood Count 4.68 M/mm3 (4.2-5.4)
[2017-07-10 06:34] LABS: Differential Indicated SCAN CRITERIA MET; POSITIVE COUNT YES; POSITIVE DIFFERENTIAL YES; POSITIVE MORPHOLOGY NO
[2017-07-10 06:36] LABS: Prothrombin Time (Protime)PT. 12.8 SECONDS (11.7-14.9); White Blood Count 30.1 K/mm3 (4.4-11.0)
[2017-07-10 06:37] LABS: Partial Thromboplast Time 27.5 Seconds (24.1-36.2)
[2017-07-10 06:44] LABS: Anion Gap 9 (5-15); BUN 20 mg/dL (7-18); BUN/Creat Ratio 27.4 RATIO (10-20); Chloride 106 mmol/L (98-107); Creatinine, Serum 0.73 mg/dL (0.55-1.02); EST Glomerular Filtration Rate 84 mL/min (>60); Est Glom Filt Rate - Afr Amer 102 mL/min (>60); Estimated Creatinine Clearance 38.14 ml/min; Glucose 155 mg/dL (74-106); Potassium 3.6 mmol/L (3.5-5.1); Sodium Level 142 mmol/L (136-145)
[2017-07-10 07:11] VITALS: PULSE 90
[2017-07-10 07:11] LABS: Bedside Glucose 201 mg/dL (70-110)
--- NOTE | 2017-07-10 09:46 | STRESSREP ---
Stress Test Report Regadenoson EKG report Resting EKG: Normal sinus rhythm, normal axis, normal intervals, no evidence of previous myocardial infarction. Regadenoson EKG: The patient received infusion for 1 minute per protocol. Resting blood pressure was 150/80, regadenoson and remained stable. During infusion the patient's heart rate remained essentially the same. Patient had rare PVCs during infusion. No dynamic EKG changes to suggest ischemia. Test was terminated due to completion of protocol. Conclusions: Normal adequate Regadenoson EKG. Negative for ischemia by EKG criteria. No anginal symptoms noted. Rare PVCs noted. Appropriate blood pressure response to infusion. Nuclear images pending. No complications.
[2017-07-10 10:00] VITALS: BP 144/77; PULSE 93; RESP 18; TEMP 36.4; O2SAT 96
[2017-07-10] MEDS: Pantoprazole Sodium 20 MG Tablet PO (10:22)
[2017-07-10] MEDS: Ezetimibe 10 MG Tablet PO (10:22)
[2017-07-10] MEDS: Sertraline 50 MG Tablet PO (10:22)
[2017-07-10] MEDS: Enoxaparin 40 MG/0.4 ML Syringe SC (10:22)
[2017-07-10] MEDS: HYDROCHLOROTHIAZIDE 12.5 MG CAPSULE PO (10:22)
[2017-07-10] MEDS: Montelukast 10 MG Tablet PO (10:22)
[2017-07-10] MEDS: guaiFENesin 1,200 MG Tablet 1200 MG PO (10:22)
[2017-07-10] MEDS: Lisinopril 10 MG Tablet PO (10:22)
[2017-07-10 10:59] VITALS: PULSE 110
--- NOTE | 2017-07-10 11:15 | PCM.DC ---
- Discharge Diagnoses Current Active Problems: Current Active and Chronic Problems (Last Reviewed 04/14/17 @ 11:05 by Marilia Hurley) Chronic respiratory failure with hypoxia (Chronic) COPD exacerbation (Acute) Chest pain (Acute) You will use the following diet at home:: Calorie/Carbohydrate Controlled (specify 1200, 1400, etc) - 180 cameron / day Your food should be the consistency of: Regular Your liquids should be the consistency of: Regular/Thin Discharge Activity: Return to Normal Activity, - - no smoking Allergies/Adverse Reactions: Allergies hydrocodone Adverse Reaction (Verified 07/08/17 19:01) Nausea levofloxacin [From Levaquin] Adverse Reaction (Verified 07/08/17 19:01) Shortness of breath Medications to take at Discharge Albuterol Aerosols [Ventolin Aerosols] 2.5 mg INHALATION Q4H PRN #25 vial 09/04/16 Benazepril/Hydrochlorothiazide [Benazepril-Hctz 10-12.5 mg Tab] 1 tab PO DAILY 09/04/16 Nebulizer [Aeroneb Go Nebulizer] 1 ea MC Q4H PRN PRN #1 ea 09/04/16 Omeprazole 1 tab PO DAILY 09/04/16 Sertraline HCl [Zoloft] 50 mg PO DAILY 09/04/16 Ascorbic Acid [Vitamin C] 1 tab PO DAILY 11/01/16 Cranberry 1 tab PO DAILY 11/01/16 Ezetimibe [Zetia] 10 mg PO DAILY 11/01/16 Montelukast [Singulair] 10 mg PO DAILY 11/01/16 Ubidecarenone [Coenzyme Q-10] 1 tab PO DAILY 11/01/16 Budesonide/Formoterol 160/4.5 [Symbicort 160/4.5 Mcg Inhaler (SP)] 2 puff INHALATION BID 11/04/16 glipiZIDE [Glucotrol] 10 mg PO BIDAC #60 tab 11/04/16 albuterol sulfate HFA 90 mcg/actuation aerosol inhaler 2 puff INHALATION Q4H PRN g 01/20/17 ipratropium 20 mcg-albuterol 100 mcg/actuation mist for inhalation 1 puff INHALATION Q6H PRN 01/20/17 tiotropium bromide 2.5 mcg/actuation mist for inhalation 2 puff INHALATION QDAY #1 ea 01/20/17 Nicotine [Nicoderm] 14 mg TRANSDERM. DAILY patch 07/10/17 Prednisone 10 mg PO UD #30 tab 07/10/17 The following prescriptions were given: Prednisone 10 mg PO UD #30 tab Primary Care Physician: Chico Bejarano DO [Primary Care Provider] - Please follow up with your Primary Care Physician in: 1-2 weeks Please Follow Up With: Serafin Hernadez DO When: 2 weeks Proposed Discharge Date: 07/10/17
[2017-07-10] MEDS: Acetaminophen 325 MG Tablet 650 MG PO (11:22)
[2017-07-10 11:41] LABS: Bedside Glucose 266 mg/dL (70-110)
--- NOTE | 2017-07-10 12:58 | CASEMGMT ---
Social Work PCU Received report that patient would like information on advanced directives. Patient is up for discharge home today. Met with and spouse in room. Patient up, moving, and dressed. Patient reports would like the information, would like to look over at home and then will call hospital to set up a time to complete. Educated patient this would be fine, that hospital has advanced care planners who can meet with patient and discuss further. Provided advanced directive packet as well as number to call to set up a meeting as an outpatient. Patient denies any other needs or concerns at this time, is looking forward to returning home. -ALICE Olvera, RESPIRATORY THERAPIST ASSISTANT
--- NOTE | 2017-07-10 15:15 | PCM.DC.SUM ---
<Cristobal Rey - Last Filed: 07/10/17 15:15> Discharge Date and Diagnosis Date of Admission: 07/08/17 Date of Discharge: 07/10/17 - Primary Discharge Diagnosis Acute COPD exacerbation Chronic hypoxic respiratory failure Chest pain - musculoskeletal Nicotine abuse Diabetes type 2 Hypertension Hyperlipidemia Anxiety and depression GERD Psoriasis - Secondary Discharge Diagnosis Chronic Problems (Last Reviewed 04/14/17 @ 11:05 by Marilia Hurley) Chronic respiratory failure with hypoxia (Chronic) Tobacco abuse (Chronic) COPD (chronic obstructive pulmonary disease) (Chronic) HTN (hypertension) (Chronic) Diabetes (Chronic) Psoriasis (Chronic) Hypoxia (Chronic) Hospital Course and Treatment Imaging Results: RAD/Chest 1 View (Portable) IMPRESSION: No radiographic evidence of acute intrathoracic disease. Stress Test: Conclusions: Normal adequate Regadenoson EKG. Negative for ischemia by EKG criteria. No anginal symptoms noted. Rare PVCs noted. Appropriate blood pressure response to infusion. Nuclear images pending. No complications. Consultations 07/09/17 06:55 Consult: Onc/Wound/studio musician Routine Comment: Operations: None Procedures: Stress test Summary of Care Provided: Physical exam on day of discharge: General: Resting comfortably NAD Psych: A/Ox3 normal affect HEENT: PEARRLA AT NC Neck: Supple NT CV: RRR no m/t/r/g/h Resp: CTA Abd: [id number] Soft NT no guarding or rigidity Ext: DP2+= no edema Skin: W/D normal turgor Lymph/Heme: No active bleeding or adenopathy Neuro: CN2-12 intact Hospital course: The patient is a 71 year old F who presented to the emergency room with chief complaint of shortness of breath but who also complained of chest pain. She has COPD and continues to smoke, she has hypertension, type 2 diabetes, chronic hypoxic respiratory failure on 2-3 L of oxygen at home, psoriasis, and hyperlipidemia. She had diffuse wheezing and was extremely dyspneic with increased work of breathing and accessory muscle usage in the emergency room, although she did remain stable on 2 L of oxygen with a saturation of 97%. Her chest pain was described as 10 out of 10 bilateral under the breasts. EKG had nonspecific ST changes and a negative troponin. Chest x-ray chronic changes only. She is felt to be in a COPD exacerbation was admitted to the PCU and placed on telemetry. Troponin was cycled and remained negative. She underwent a stress test for her chest pain which was negative for ischemia. It was revealed that she had received the Heimlich maneuver by her a couple days her food caught in her throat which was felt to be the cause of her chest pain as there is no ischemic evidence found. She improved with steroids and aerosol treatments. Her white count did decrease significantly after receiving steroids so we would like to have her check have this rechecked as an outpatient given the drastic change. Otherwise she remained in stable condition and desired to be discharged home. She was transitioned to oral prednisone and will complete a taper. She follows with Dr. Hernadez from pulmonology and we have advised her to follow-up with him as an outpatient. She should also follow-up with her PCP. She is discharged home in stable condition. I strongly advised her to discontinue smoking entirely. This patient was seen by Cristobal Rey PA-C under the supervision of Doctor Te. [] Discharge Diet: Low fat/ Low Cholesterol, 1800 Calorie Control Diet, 2000 mg Sodium Diet Discharge Activity: Return to Normal Activity, - - no smoking Home Medications: Medications to take at Discharge Albuterol Aerosols [Ventolin Aerosols] 2.5 mg INHALATION Q4H PRN #25 vial 09/04/16 Benazepril/Hydrochlorothiazide [Benazepril-Hctz 10-12.5 mg Tab] 1 tab PO DAILY 09/04/16 Nebulizer [Aeroneb Go Nebulizer] 1 ea MC Q4H PRN PRN #1 ea 09/04/16 Omeprazole 1 tab PO DAILY 09/04/16 Sertraline HCl [Zoloft] 50 mg PO DAILY 09/04/16 Ascorbic Acid [Vitamin C] 1 tab PO DAILY 11/01/16 Cranberry 1 tab PO DAILY 11/01/16 Ezetimibe [Zetia] 10 mg PO DAILY 11/01/16 Montelukast [Singulair] 10 mg PO DAILY 11/01/16 Ubidecarenone [Coenzyme Q-10] 1 tab PO DAILY 11/01/16 Budesonide/Formoterol 160/4.5 [Symbicort 160/4.5 Mcg Inhaler (SP)] 2 puff INHALATION BID 11/04/16 glipiZIDE [Glucotrol] 10 mg PO BIDAC #60 tab 11/04/16 albuterol sulfate HFA 90 mcg/actuation aerosol inhaler 2 puff INHALATION Q4H PRN g 01/20/17 ipratropium 20 mcg-albuterol 100 mcg/actuation mist for inhalation 1 puff INHALATION Q6H PRN 01/20/17 tiotropium bromide 2.5 mcg/actuation mist for inhalation 2 puff INHALATION QDAY #1 ea 01/20/17 Nicotine [Nicoderm] 14 mg TRANSDERM. DAILY patch 07/10/17 Prednisone 10 mg PO UD #30 tab 07/10/17 Following Prescrptions Were Given to Patient: Prednisone 10 mg PO UD #30 tab Primary Care Physician: Chico Bejarano DO [Primary Care Provider] - Please follow up with your Primary Care Physician in: 1-2 weeks Please Follow Up With: Serafin Hernadez DO When: 2 weeks Disposition: Home Minutes spent on discharge:: 35 Patient Condition:: Stable Medical Necessity - Tobacco Use Smoking Status: Current every day smoker Tobacco Use: Cigarettes Meaningful Use Info Meaningful Use Diagnoses (Choose all that apply): None applicable <Devi Tiwari - Last Filed: 07/10/17 16:50> Discharge Date and Diagnosis - Secondary Discharge Diagnosis Chronic Problems (Last Reviewed 04/14/17 @ 11:05 by Marilia Hurley) Chronic respiratory failure with hypoxia (Chronic) Tobacco abuse (Chronic) COPD (chronic obstructive pulmonary disease) (Chronic) HTN (hypertension) (Chronic) Diabetes (Chronic) Psoriasis (Chronic) Hypoxia (Chronic) Hospital Course and Treatment Consultations 07/09/17 06:55 Consult: Onc/Wound/studio musician Routine Comment: Summary of Care Provided: The patient is a 71 year old F [] Code Visit Inpatient E&M: 76703 Disch Hosp
--- NOTE | 2017-07-10 15:21 | DS.PCM_ITS ---
<Cristobal Rey - Last Filed: 07/10/17 15:15> Discharge Date and Diagnosis Date of Admission: 07/08/17 Date of Discharge: 07/10/17 - Primary Discharge Diagnosis Acute COPD exacerbation Chronic hypoxic respiratory failure Chest pain - musculoskeletal Nicotine abuse Diabetes type 2 Hypertension Hyperlipidemia Anxiety and depression GERD Psoriasis - Secondary Discharge Diagnosis Chronic Problems (Last Reviewed 04/14/17 @ 11:05 by Marilia Hurley) Chronic respiratory failure with hypoxia (Chronic) Tobacco abuse (Chronic) COPD (chronic obstructive pulmonary disease) (Chronic) HTN (hypertension) (Chronic) Diabetes (Chronic) Psoriasis (Chronic) Hypoxia (Chronic) Hospital Course and Treatment Imaging Results: RAD/Chest 1 View (Portable) IMPRESSION: No radiographic evidence of acute intrathoracic disease. Stress Test: Conclusions: Normal adequate Regadenoson EKG. Negative for ischemia by EKG criteria. No anginal symptoms noted. Rare PVCs noted. Appropriate blood pressure response to infusion. Nuclear images pending. No complications. Consultations 07/09/17 06:55 Consult: Onc/Wound/consulting intern Routine Comment: Operations: None Procedures: Stress test Summary of Care Provided: Physical exam on day of discharge: General: Resting comfortably NAD Psych: A/Ox3 normal affect HEENT: PEARRLA AT NC Neck: Supple NT CV: RRR no m/t/r/g/h Resp: CTA Abd: [id number] Soft NT no guarding or rigidity Ext: DP2+= no edema Skin: W/D normal turgor Lymph/Heme: No active bleeding or adenopathy Neuro: CN2-12 intact Hospital course: The patient is a 71 year old F who presented to the emergency room with chief complaint of shortness of breath but who also complained of chest pain. She has COPD and continues to smoke, she has hypertension, type 2 diabetes, chronic hypoxic respiratory failure on 2-3 L of oxygen at home, psoriasis, and hyperlipidemia. She had diffuse wheezing and was extremely dyspneic with increased work of breathing and accessory muscle usage in the emergency room, although she did remain stable on 2 L of oxygen with a saturation of 97%. Her chest pain was described as 10 out of 10 bilateral under the breasts. EKG had nonspecific ST changes and a negative troponin. Chest x-ray chronic changes only. She is felt to be in a COPD exacerbation was admitted to the PCU and placed on telemetry. Troponin was cycled and remained negative. She underwent a stress test for her chest pain which was negative for ischemia. It was revealed that she had received the Heimlich maneuver by her a couple days her food caught in her throat which was felt to be the cause of her chest pain as there is no ischemic evidence found. She improved with steroids and aerosol treatments. Her white count did decrease significantly after receiving steroids so we would like to have her check have this rechecked as an outpatient given the drastic change. Otherwise she remained in stable condition and desired to be discharged home. She was transitioned to oral prednisone and will complete a taper. She follows with Dr. Hernadez from pulmonology and we have advised her to follow-up with him as an outpatient. She should also follow-up with her PCP. She is discharged home in stable condition. I strongly advised her to discontinue smoking entirely. This patient was seen by Cristobal Rey PA-C under the supervision of Doctor Te. [] Discharge Diet: Low fat/ Low Cholesterol, 1800 Calorie Control Diet, 2000 mg Sodium Diet Discharge Activity: Return to Normal Activity, - - no smoking Home Medications: Medications to take at Discharge Albuterol Aerosols [Ventolin Aerosols] 2.5 mg INHALATION Q4H PRN #25 vial Benazepril/Hydrochlorothiazide [Benazepril-Hctz 10-12.5 mg Tab] 1 tab PO DAILY 09/04/16 Nebulizer [Aeroneb Go Nebulizer] 1 ea MC Q4H PRN PRN #1 ea 09/04/16 Omeprazole 1 tab PO DAILY 09/04/16 Sertraline HCl [Zoloft] 50 mg PO DAILY 09/04/16 Ascorbic Acid [Vitamin C] 1 tab PO DAILY 11/01/16 Cranberry 1 tab PO DAILY 11/01/16 Ezetimibe [Zetia] 10 mg PO DAILY 11/01/16 Montelukast [Singulair] 10 mg PO DAILY 11/01/16 Ubidecarenone [Coenzyme Q-10] 1 tab PO DAILY 11/01/16 Budesonide/Formoterol 160/4.5 [Symbicort 160/4.5 Mcg Inhaler (SP)] 2 puff INHALATION BID 11/04/16 glipiZIDE [Glucotrol] 10 mg PO BIDAC #60 tab 11/04/16 albuterol sulfate HFA 90 mcg/actuation aerosol inhaler 2 puff INHALATION Q4H PRN g 01/20/17 ipratropium 20 mcg-albuterol 100 mcg/actuation mist for inhalation 1 puff INHALATION Q6H PRN 01/20/17 tiotropium bromide 2.5 mcg/actuation mist for inhalation 2 puff INHALATION QDAY #1 ea 01/20/17 Nicotine [Nicoderm] 14 mg TRANSDERM. DAILY patch 07/10/17 Prednisone 10 mg PO UD #30 tab 07/10/17 Following Prescrptions Were Given to Patient: Prednisone 10 mg PO UD #30 tab Primary Care Physician: Chico Bejarano DO [Primary Care Provider] - Please follow up with your Primary Care Physician in: 1-2 weeks Please Follow Up With: Serafin Hernadez DO When: 2 weeks Disposition: Home Minutes spent on discharge:: 35 Patient Condition:: Stable Medical Necessity - Tobacco Use Smoking Status: Current every day smoker Tobacco Use: Cigarettes Meaningful Use Info Meaningful Use Diagnoses (Choose all that apply): None applicable <Devi Tiwari - Last Filed: 07/10/17 16:50> Discharge Date and Diagnosis - Secondary Discharge Diagnosis Chronic Problems (Last Reviewed 04/14/17 @ 11:05 by Marilia Hurley) Chronic respiratory failure with hypoxia (Chronic) Tobacco abuse (Chronic) COPD (chronic obstructive pulmonary disease) (Chronic) HTN (hypertension) (Chronic) Diabetes (Chronic) Psoriasis (Chronic) Hypoxia (Chronic) Hospital Course and Treatment Consultations 07/09/17 06:55 Consult: Onc/Wound/consulting intern Routine Comment: Summary of Care Provided: The patient is a 71 year old F [] Code Visit Inpatient E&M: 69526 Disch Hosp
[2017-07-21 11:00] LABS: Pathologist Review Reviewed
== END 2017-07-10 13:25 | disposition home or self-care (01) | DRG 191 ==
LOC: ED 21:17 → PCU 21:48
PROVIDERS: Internal Medicine; Admitting Provider Family Medicine; Emergency Provider Emergency Medicine; Family Provider Student in an Organized Health Care Education/Training Program; PCP Student in an Organized Health Care Education/Training Program; Visit Provider Internal Medicine
DX: J44.1 Chronic obstructive pulmonary disease with (acute) exacerbation (principal); J96.11 Chronic respiratory failure with hypoxia; E11.9 Type 2 diabetes mellitus without complications; E78.5 Hyperlipidemia, unspecified; F41.9 Anxiety disorder, unspecified; F32.9 Major depressive disorder, single episode, unspecified; Z79.899 Other long term (current) drug therapy; I10 Essential (primary) hypertension; R07.89 Other chest pain; K21.9 Gastro-esophageal reflux disease without esophagitis; L40.9 Psoriasis, unspecified; F17.210 Nicotine dependence, cigarettes, uncomplicated; Z79.84 Long term (current) use of oral hypoglycemic drugs; Z99.81 Dependence on supplemental oxygen
CPT/HCPCS: 36415; 71045; 78452; 80048; 80061; 82962; 83735; 84484; 85025; 85027; 85379; 85610; 85730; 87070; 87077; 87186; 87205; 87633; 93005; 93017; 94060; 94618; 94640; 94726; 94729; 97802; 99285; A9500; J7030; A4216; J2785

== ENCOUNTER → 2017-11-11 10:51 | Outpatient (CLI) | payer MEDICARE, OTHER, SELFPAY ==
[2017-11-11 11:00] VITALS: PULSE 100; PULSE 101; PULSE 91; PULSE 93; PULSE 96; PULSE 97; O2SAT 95; O2SAT 96; O2SAT 97; O2SAT 98
--- NOTE | 2017-11-11 11:23 | CPS ---
Patient came to testing very upset. Patient crying, RT offered support. Patient said that [facility] is trying to take her oxygen away, patient very worried. 6 minute walk completed and reassured patient that everything will work out and to not stress. RT offered support again. Patient seemed more calm and thanked RT. Juliana BALLESTEROS
--- NOTE | 2017-11-11 13:25 | PCM.PSN.6M ---
PSN 6 Minute Walk Test - 6 Minute Walk Test 6 Minute Walk Test: 6 Minute Walk Test PSN:6-Minute Walk Test Start: 11/11/17 11:21 Freq: Status: Active Protocol: RESP.6MINW Document 11/11/17 11:00 JLA (Rec: 11/11/17 11:27 JLA [id number]) 6 Minute Walk Test Date Performed 11/11/17 Time Performed 11:00 Height 5 ft Weight: 53.524 kg Weight in Pounds 118.[address]: Serafin Hernadez Assistive device used: None Pre-test Oxygen Delivery Method Room Air Pulse Ox (%) 97 Pulse Rate (60-100 beats/min) 93 Dyspnea Hipolito Scale (0-10) 2 Exertion Hipolito Scale (6-20) 6 1st minute Oxygen Delivery Method Room Air Pulse Ox (%) 98 Pulse Rate (60-100 beats/min) 91 2nd minute Oxygen Delivery Method Room Air Pulse Ox (%) 95 Pulse Rate (60-100 beats/min) 100 3rd minute Oxygen Delivery Method Room Air Pulse Ox (%) 95 Pulse Rate (60-100 beats/min) 101 H 4th minute Oxygen Delivery Method Room Air Pulse Ox (%) 96 Pulse Rate (60-100 beats/min) 93 Number of Rests Taken 1 5th minute Oxygen Delivery Method Room Air Pulse Ox (%) 95 Pulse Rate (60-100 beats/min) 97 6th minute Oxygen Delivery Method Room Air Pulse Ox (%) 97 Pulse Rate (60-100 beats/min) 97 Dyspnea Hipolito Scale (0-10) 3 Exertion Hipolito Scale (6-20) 13 Post-test Oxygen Delivery Method Room Air Pulse Ox (%) 97 Pulse Rate (60-100 beats/min) 96 Full Laps Walked 11 Partial Lap, Number of Tiles Walked 8 Total Distance Walked (ft) 657 11/11/17 11:23 Cardiopulmonary Services by Juliana Nolen Patient came to testing very upset. Patient crying, RT offered support. Patient said that [facility] is trying to take her oxygen away, patient very worried. 6 minute walk completed and reassured patient that everything will work out and to not stress. RT offered support again. Patient seemed more calm and thanked RT. Juliana BALLESTEROS Initialized on 11/11/17 11:23 - END OF NOTE - Interpretation Interpretation: The patient was able to ambulate 657 feet over the course of 6 minutes on room air with no assistive devices or breaks. The patient did not experience any significant desaturation or tachycardia during testing. Patient was reportedly very worried that oxygen was going to be taken away. These findings are consistent with a musculoskeletal limitation exercise tolerance. - Recommendations Recommendations: No supplemental oxygen is indicated at rest. Patient likely requires a nocturnal oximetry before removal of supplemental oxygen.
--- NOTE | 2017-12-28 12:38 | WT_ITS ---
PSN 6 Minute Walk Test - 6 Minute Walk Test 6 Minute Walk Test: 6 Minute Walk Test PSN:6-Minute Walk Test Start: 11/11/17 11:21 Freq: Status: Active Protocol: RESP.6MINW Document 11/11/17 11:00 JLA (Rec: 11/11/17 11:27 JLA [id number]) 6 Minute Walk Test Date Performed 11/11/17 Time Performed 11:00 Height 5 ft Weight: 53.524 kg Weight in Pounds 118.[address]: Serafin Hernadez Assistive device used: None Pre-test Oxygen Delivery Method Room Air Pulse Ox (%) 97 Pulse Rate (60-100 beats/min) 93 Dyspnea Hipolito Scale (0-10) 2 Exertion Hipolito Scale (6-20) 6 1st minute Oxygen Delivery Method Room Air Pulse Ox (%) 98 Pulse Rate (60-100 beats/min) 91 2nd minute Oxygen Delivery Method Room Air Pulse Ox (%) 95 Pulse Rate (60-100 beats/min) 100 3rd minute Oxygen Delivery Method Room Air Pulse Ox (%) 95 Pulse Rate (60-100 beats/min) 101 H 4th minute Oxygen Delivery Method Room Air Pulse Ox (%) 96 Pulse Rate (60-100 beats/min) 93 Number of Rests Taken 1 5th minute Oxygen Delivery Method Room Air Pulse Ox (%) 95 Pulse Rate (60-100 beats/min) 97 6th minute Oxygen Delivery Method Room Air Pulse Ox (%) 97 Pulse Rate (60-100 beats/min) 97 Dyspnea Hipolito Scale (0-10) 3 Exertion Hipolito Scale (6-20) 13 Post-test Oxygen Delivery Method Room Air Pulse Ox (%) 97 Pulse Rate (60-100 beats/min) 96 Full Laps Walked 11 Partial Lap, Number of Tiles Walked 8 Total Distance Walked (ft) 657 11/11/17 11:23 Cardiopulmonary Services by Juliana Nolen Patient came to testing very upset. Patient crying, RT offered support. Patient said that [facility] is trying to take her oxygen away, patient very worried. 6 minute walk completed and reassured patient that everything will work out and to not stress. RT offered support again. Patient seemed more calm and thanked RT. Juliana BALLESTEROS Initialized on 11/11/17 11:23 - END OF NOTE - Interpretation Interpretation: The patient was able to ambulate 657 feet over the course of 6 minutes on room air with no assistive devices or breaks. The patient did not experience any significant desaturation or tachycardia during testing. Patient was reportedly very worried that oxygen was going to be taken away. These findings are consistent with a musculoskeletal limitation exercise tolerance. - Recommendations Recommendations: No supplemental oxygen is indicated at rest. Patient likely requires a nocturnal oximetry before removal of supplemental oxygen.
== END ==
PROVIDERS: Family Provider Student in an Organized Health Care Education/Training Program; PCP Student in an Organized Health Care Education/Training Program; Visit Provider Internal Medicine Critical Care Medicine
DX: R09.02 Hypoxemia (principal)
CPT/HCPCS: 94618

== ENCOUNTER 2018-03-22 11:44 | Emergency (ER) | payer MEDICARE, OTHER, SELFPAY ==
[2018-03-22 11:45] VITALS: BP 120/61; PULSE 93; RESP 18; TEMP 36.7; O2SAT 96; BMI 23.4
--- NOTE | 2018-03-22 12:01 | ART_ITS ---
Reason For Study: LEG PAIN Procedure A bilateral lower extremity continuous wave Doppler with analog waveform analysis,segmental pressures,and ankle brachial indexes without exercise. Left Segmental Pressures Left brachial= 125mmHg. Left thigh = 45mmHg. Left calf = 22mmHg. Left posterior tibial artery = 25mmHg. Left dorsalis pedis artery = 28mmHg. The left dorsalis pedis waveforms are monophasic. The left posterior tibial artery waveforms are monophasic. Right Segmental Pressures Right brachial= 129mmHg. Right thigh = 116mmHg. Right calf = 109mmHg. Right posterior tibial artery = 89mmHg. Right dorsalis pedis artery = 83mmHg. Right digit = 46 mmHg. The right dorsalis pedis waveforms are biphasic. The right posterior tibial artery waveforms are biphasic. Indices The right ankle brachial index by the dorsalis pedis is .64. The right ankle brachial index by the posterior tibial artery is .69. The right digital-brachial index is .36. The left ankle brachial index by the dorsalis pedis is .22. The left ankle brachial index by the posterior tibial artery is .19. Interpretation Summary Right lower extremity in the range of vascular claudication with superficial femoral or more proximal disease. Suspect distal small vessel disease as well. Left lower extremity severe inflow disease suggesting superficial femoral or more proximal occlusion or severe stenosis. The left lower extremity is in the range of critical ischemia. Ordering Physician: Santos Staley Referring Physician: Chico Holbrook Performed By: Sade Munoz RVT
--- NOTE | 2018-03-22 12:18 | RAD_ITS ---
STUDY: X-RAY - LEFT FOOT CLINICAL: Female, 72 years old. Pain. No known injury. TECHNIQUE: 3 view(s) of the foot. COMPARISON: None. FINDINGS: There is an enthesophyte involving the posterior superior calcaneus at the site of insertion of the Achilles tendon. Normal visualized subtalar, talonavicular, calcaneocuboid, tarsal and tarsometatarsal articulations. Normal metatarsi. Normal metatarsophalangeal joint of the great toe. Normal tibial and fibular sesamoid bones. Normal interphalangeal joint of the great toe. Normal phalanges of the great toe. Normal second through fifth metatarsophalangeal joints. Normal interphalangeal joints and phalanges of the lesser toes. The soft tissue structures are unremarkable. RAD/Foot min 3 Views IMPRESSION: Small spur at insertion of the Achilles tendon. Electronically Signed: Kavin Jimenez MD at 12:32 EST , Service support ,
--- NOTE | 2018-03-22 12:40 | CT_ITS ---
STUDY: CTA OF THE ABDOMINAL AORTA AND BILATERAL LOWER EXTREMITIES REASON FOR EXAM: Female, 72 years old. Peripheral vascular disease. RADIATION DOSAGE (If Supplied By Facility): CTDIvol = ( 6.94 ) mGy, DLP = ( 859.88 ) mGycm TECHNIQUE: Axial CT angiography multi-detector data acquisition was obtained from the dome of the lower to the ankles following intravenous administration of 100 ml of Isovue 370 contrast. Axial images and MIP images were reconstructed from the axial data set. Post-processing of the angiographic images was performed, with multiplanar reformation and 3D reconstruction. Individualized dose optimization techniques were used for this CT. TECHNICAL QUALITY: Good COMPARISON: None. Descriptors of Narrowing: None (0%) Mild (< 50%) Moderate (50-70%) Severe (70-90%) Subtotal/Total Occlusion (90-100%) Non-Evaluable (technically non-diagnostic FINDINGS: Multiple gallstones. Multiple small retroperitoneal lymph nodes. Abdominal aorta: Atherosclerotic calcific plaques. There is no evidence of aneurysm. Celiac and superior mesenteric arteries: No demonstrated narrowing. Inferior mesenteric artery: No demonstrated narrowing. Right renal artery(arteries): No demonstrated narrowing. Left renal artery(arteries): No demonstrated narrowing. Right common iliac artery: Atherosclerotic plaques of the common iliac artery causing subtotal occlusion. Right external iliac artery: Diffuse atherosclerotic plaque. Diffuse narrowing. Right internal iliac artery: No demonstrated narrowing. Left common iliac artery: Diffuse atherosclerotic plaque causing diffuse narrowing. Left external iliac artery: Diffuse atherosclerotic plaque causing diffuse narrowing. Left internal iliac artery: No demonstrated narrowing. RIGHT LOWER EXTREMITY Right common femoral artery: Atherosclerotic plaque causing moderate occlusion. Right profundus femoris: No demonstrated narrowing. Right superficial femoral: Diffuse atherosclerotic plaque. Multifocal areas of narrowing although no occlusion is seen. Right popliteal artery: No demonstrated narrowing. Right tibioperoneal trunk: No demonstrated narrowing. Right anterior tibial artery: No demonstrated narrowing. Right posterior tibial artery: No demonstrated narrowing. Right peroneal artery: No demonstrated narrowing. LEFT LOWER EXTREMITY Left common femoral artery: Atherosclerotic plaque. Nonocclusive. Left profundus femoris: No demonstrated narrowing. Left superficial femoral: Multiple calcific plaque throughout the course of the superficial femoral artery without occlusion. Left popliteal artery: No demonstrated narrowing. Left tibioperoneal trunk: No demonstrated narrowing. Left anterior tibial artery: No demonstrated narrowing. Left posterior tibial artery: No demonstrated narrowing. Left peroneal artery: No demonstrated narrowing. CT/CTA Abd w/Runoff W/WO Contrast IMPRESSION: Multiple findings as discussed. Electronically Signed: Kavin Jimenez MD at 14:36 EST , Service support ,
--- NOTE | 2018-03-22 13:00 | ED.DCSUM_ITS ---
- ER Visit Summary Date of Service: 03/22/18 Chief Complaint: Foot pain History of Present Illness: The patient is a 72 F with left foot pain for the past few months it was described as gradual worse with walking at first but now patient has pain at rest. She noticed some discoloration of her fourth toe as well as her great toe. No fever or chills or abdominal pain. She has COPD and is a smoker. Pain is moderate, worse with walking. Physical Examination: Appears in some distress Moist mucous membranes, no obvious facial deformity No C-spine tenderness supple neck. Regular rate and rhythm without any obvious murmurs Audible wheezing, no bilaterally speaking in full sentences without any obvio current us respiratory distress Abdomen soft and nontender no guarding or rebound There is quite a bit of tenderness over the left foot, I cannot appreciate a PT or DP pulse, the foot is warm, same temperature as the right foot. There is discoloration of the fourth toe as well as slight discoloration of the great toe. There is accompanied psoriasis Skin does chronic psoriasis without any cellulitis Alert oriented ?3 with no gross focal deficit Emergency Department Course and Treatment: Patient is found to have chronic occlusions on PVRs, there is also occlusions on CT angiogram with runoffs, I discussed the patient with Dr. Mansfield, he reviewed the CT. His physician clinical lab assistant saw the patient. Patient will be started on Plavix and aspirin he will see the patient tomorrow for an arteriogram and likely stent. Patient's foot is warm, same temperature as the other side, this is been constant pain for a few days and chronic pain intermittently for a few months, I believe patient is safe for discharge as long she follows up tomorrow she understands the severity. Disposition: Discharged in stable condition Impression:Chronic arterial occlusion left lower extremity This note was generated with [employer] software. It may contain incorrect words, spelling, and punctuation that were not noted in review of the chart prior to signing ED Disposition - Plan for ED Patient: Disposition: Home or Assisted Living Prescriptions: Aspirin [Aspirin, Baby] 81 mg PO DAILY@0800 #30 tab.chew Clopidogrel Bisulfate [Plavix] 75 mg PO DAILY #30 tab Referrals: Federico Mansfield MD [STAFF PHYSICIAN] - 1 Day
[2018-03-22 13:06] LABS: Absolute Lymphocyte Count 1.62 X10^3/ul (0.83-4.51); Absolute Neutrophil Count 8.4 X10^3/uL (2.0-7.7); Basophil# 0.01 X10^3/uL; Basophil% 0.1 % (0-1); Eosinophil# 0.15 X10^3/uL; Eosinophils% 1.3 % (0-5); Hematocrit 41.9 % (37-47); Hemoglobin 12.6 g/dl (12.0-15.0); Lymphocyte # 1.62 X10^3/ul (4.0); Mean Corp Hgb Conc 30.1 g/gl (32-36); Mean Corpuscular Hgb 27.7 pg (27.0-32.0); Mean Corpuscular Volume 92.1 fL (81-99); Mean Platelet Vol. 10.6 fl (6.2-12.0); Monocyte% 12.1 % (0-10); Neutrophil # 8.38 X10^3/uL (2.7-7.7); Neutrophil % 72.2 % (47-70); Platelet Count 251 K/mm3 (150-450); RBC Distribution Width CV 14.7 % (11.6-14.6); RBC Distribution Width SD 49.2 fl (35.1-43.9); Red Blood Count 4.55 M/mm3 (4.2-5.4); White Blood Count 11.6 K/mm3 (4.4-11.0)
[2018-03-22 13:08] LABS: POSITIVE COUNT NO; POSITIVE DIFFERENTIAL NO; POSITIVE MORPHOLOGY NO
[2018-03-22 13:15] LABS: ALB/GLOB Ratio 0.9 RATIO (0.9-2.4); AST(SGOT) 14 U/L (15-37); Alanine Aminotransfer ALT/SGPT 20 U/L (13-56); Albumin, Serum 3.5 g/dL (3.2-5.0); Alkaline Phosphatase 67 U/L (45-117); Anion Gap 5 (5-15); BUN 10 mg/dL (7-18); BUN/Creat Ratio 12.3 RATIO (10-20); Calcium,Total 9.1 mg/dL (8.5-10.1); Chloride 106 mmol/L (98-107); Creatinine, Serum 0.82 mg/dL (0.55-1.02); EST Glomerular Filtration Rate 74 mL/min (>60); Est Glom Filt Rate - Afr Amer 89 mL/min (>60); Estimated Creatinine Clearance 45.85 ml/min; Globulin 3.7 g/dL (2.2-4.2); Glucose 105 mg/dL (74-106); Potassium 3.5 mmol/L (3.5-5.1); Protein, Total 7.2 g/dL (6.4-8.2); Sodium Level 142 mmol/L (136-145)
--- NOTE | 2018-03-22 16:28 | PCM.HP.STD ---
Problem List (1) PAD (peripheral artery disease) Status: Acute History of Present Illness Date of Admission: 03/22/18 Chief Complaint: Periphreal arterial disease with symptomatic left lower extremity pain The patient is a 72 year old F who presents with a 2 week history of left great toe pain. Patient was evaluated by urgent care 2 weeks ago for a rash and pain. She was given antibiotics which the patient stated took the rash away. Patient also notes she had toothache-type/tired pain discomfort with walking long distances. She notes when she sits to rest the pain goes away. Patient states this has been ongoing for months. Patient notes she takes medication for cholesterol however her cholesterol continues to be high. She is unsure what her last levels were. Patient states she has a past medical history of hypertension, psoriasis, COPD, diabetes. Patient denies previous myocardial infarction, stroke and blood clots. Patient is a 1 ppd smoker since the age of 20. She denies any previous surgeries other than a tubal ligation. Patient denies being seen by a trading floor operator or having any prior leg work done. She denies being on any blood thinners. Patient's daughter is also present in the room. She notes she was to see her PCP on April 04 for the toe pain. CTA was obtained demonstrating left external and common iliac arteries. 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 Nocturnal hypoxia G47.34 Shortness of breath R06.02 Stage 3 severe COPD by GOLD classification J44.9 Allergies hydrocodone Adverse Reaction (Verified 03/22/18 11:45) Nausea levofloxacin [From Levaquin] Adverse Reaction (Verified 03/22/18 11:45) Shortness of breath Home Medications: Ambulatory Orders Medication Instructions Recorded Albuterol Aerosols [Ventolin 2.5 mg INHALATION Q4H PRN #25 vial 09/04/16 Aerosols] Benazepril/Hydrochlorothiazide 1 tab PO DAILY 09/04/16 [Benazepril-Hctz 10-12.5 mg Tab] Nebulizer [Aeroneb Go Nebulizer] 1 ea MC Q4H PRN PRN #1 ea 09/04/16 Omeprazole 1 tab PO DAILY 09/04/16 Sertraline HCl [Zoloft] 50 mg PO DAILY 09/04/16 Ascorbic Acid [Vitamin C] 1 tab PO DAILY 11/01/16 Cranberry 1 tab PO DAILY 11/01/16 Ezetimibe [Zetia] 10 mg PO DAILY 11/01/16 Montelukast [Singulair] 10 mg PO DAILY 11/01/16 Ubidecarenone [Coenzyme Q-10] 1 tab PO DAILY 11/01/16 Budesonide/Formoterol 160/4.5 2 puff INHALATION BID 11/04/16 [Symbicort 160/4.5 Mcg Inhaler (SP)] glipiZIDE [Glucotrol] 10 mg PO BIDAC #60 tab 11/04/16 albuterol sulfate HFA 90 2 puff INHALATION Q4H PRN g 01/20/17 mcg/actuation aerosol inhaler ipratropium 20 mcg-albuterol 100 1 puff INHALATION Q6H PRN 01/20/17 mcg/actuation mist for inhalation celecoxib 100 mg capsule 100 mg PO DAILY cap 11/23/17 gabapentin 100 mg capsule 100 mg PO DAILY 11/23/17 guaifenesin ER 1,200 mg tablet, 1,200 mg PO Q12H 11/23/17 extended release 12 hr nystatin 100,000 unit/mL oral 5 ml MUCOUS MEMBRANE TID #250 ml 11/23/17 suspension Aspirin [Aspirin, Baby] 81 mg PO DAILY@0800 #30 tab.chew 03/22/18 Clopidogrel Bisulfate [Plavix] 75 mg PO DAILY #30 tab 03/22/18 Lyrica 03/22/18 Meloxicam 03/22/18 Surgical History: Surgical History (Last Reviewed 03/22/18 @ 16:41 by Asha Pickard PA-C) H/O tubal ligation Z98.51 1975 Surgical History: no surgical history Psychiatric History: 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 Sibling Family History: Family History (Last Reviewed 03/22/18 @ 16:41 by Asha Pickard PA-C) Mother Heart disease History Items: Cancer, - - skin cancer Review of Systems Constitutional: Denies: Chills, Fever, Weight Change HEENT: Denies: Head Aches, Sinus Congestion, Sinus Drainage Cardiovascular: Denies: Chest Pain, Palpitations Respiratory: Denies: Cough, Shortness of breath at rest, Sputum production Gastrointestinal: Denies: Abdominal Pain, Nausea, Vomiting Genitourinary: Denies: Dysuria Musculoskeletal: Reports: Leg Pain, - - left great toe pain which comes and goes Skin: Reports: Wounds. Denies: Rash Neurological: Denies: Numbness, Tingling, Focal weakness Psychiatric: Denies: Anxiety, Depression, Homicidal Ideations, Suicidal Ideations Hematologic/ Lymphatic: Denies: Easy Bruising, Easy Bleeding VTE Information - Inpt Only VTE Present on Admission: No Patient Problems: Active and Suspected Problems (Last Reviewed 01/20/18 @ 10:25 by Juliana Shepherd) PAD (peripheral artery disease) (Acute) - Physical Exam General: Alert, Oriented x3, Cooperative HEENT: Atraumatic, PERRLA, EOMI, Normocephalic Neck: Supple, No JVD, Carotid Bruit, Right Lungs: Clear to auscultation, Normal air movement Cardiovascular: Regular rate, No murmurs Abdomen: Bowel Sounds Present, Soft, Non Tender Extremities: - - Left posterior heal wound from 2 weeks ago. Small ulcer on the fourth digit. Slight discoloration of the tip of the left great toe and very small area of the 4th digit with purplish discoloration. Dependent rubor. Bilateral foot warmth. 0 pedal, popliteal, femoral pulse left foot. 0 right pedal pulse, 1+ popliteal pulse and 1+ right femoral pulse. No calf pain with palpation. Skin: No rashes, No breakdown Musculoskeletal: No Tenderness to Palpation of Joints or Extremities Neurological: Neuro grossly intact Psych/Mental Status: Normal Affect, Appropriate Vital Signs Temp Pulse Resp BP Pulse Ox 98.0 F 93 18 120/61 96 03/22/18 11:45 03/22/18 11:45 03/22/18 11:45 03/22/18 11:45 03/22/18 11:45 Weight: 120 lb Body Mass Index (BMI) 23.4 Laboratory Tests Past 24 Hrs 03/22/18 03/22/18 12:50 12:50 WBC 11.6 H RBC 4.55 Hgb 12.6 Hct 41.9 MCV 92.1 MCH 27.7 MCHC 30.1 L RDW 14.7 H RDW Differential 49.2 H Plt Count 251 MPV 10.6 Immature Gran % (Auto) 0.300 Neut % (Auto) 72.2 H Lymph % (Auto) 14.0 L [place] % (Auto) 12.1 H Eos % (Auto) 1.3 Baso % (Auto) 0.1 Absolute Neuts (auto) 8.4 H Absolute Lymphs (auto) 1.62 Total Counted Not Reportable Sodium 142 Potassium 3.5 Chloride 106 Carbon Dioxide 31.0 Anion Gap 5 BUN 10 Creatinine 0.82 Estim Creat Clear Calc 45.85 Est GFR (MDRD) Af Amer 89 Est GFR (MDRD) Non-Af 74 BUN/Creatinine Ratio 12.3 Glucose 105 Calcium 9.1 Total Bilirubin 0.60 AST 14 L ALT 20 Alkaline Phosphatase 67 Total Protein 7.2 Albumin 3.5 Globulin 3.7 Albumin/Globulin Ratio 0.9 Assessment/Plan All Active Problems (Last Reviewed 01/20/18 @ 10:25 by Juliana Shepherd) COPD exacerbation (Acute) Chest pain (Acute) PAD (peripheral artery disease) (Acute) Stage 3 severe COPD by GOLD classification (Acute) I am seeing this patient in conjunction with Dr. Mansfield Impression: Symptomatic claudication of the left lower extremity with left great toe pain. Plan: I have discussed this patient with Dr. Mansfield. Dr. Mansfield will plan to perform an abdominopelvic lower limb arteriogram with left lower extremity intervention. Procedure details, risks and benefits have been explained to the patient and her daughter. Both patient and daughter are in agreement with proceeding with the proposed procedure. Patient was also discussed with Dr. Staley. Patient will receive 1 liter bolus in the ED prior to discharge as well as a loading dose of Plavix. She will be discharged to home with a prescription for Plavix and additional instructions to take 81 mg aspirin daily. Patient was also given instructions in regards to arrival time for tomorrow, She will need to arrive early for labs, a carotid ultrasound followed by the APLL procedure in the laborer prestressed concrete. Patient agrees to all of these instructions. Patient's daughter also agrees with the instructions and both understand that she may have to stay for observe in the hospital pending on how much intervention will need to be performed. Thank you for allowing me to participate in this patient's care. Code Visit Office Visits / Consults: [id number] IP Consult L3
[2018-03-22 16:37] VITALS: BP 135/57; PULSE 95; RESP 14; O2SAT 92
[2018-03-22] MEDS: Clopidogrel Bisulfate 300 MG Tablet PO (16:37)
== END 2018-03-22 16:40 | disposition home or self-care (01) ==
PROVIDERS: Emergency Provider Emergency Medicine; Family Provider Student in an Organized Health Care Education/Training Program; PCP Student in an Organized Health Care Education/Training Program
DX: I77.1 Stricture of artery (principal); J44.9 Chronic obstructive pulmonary disease, unspecified; I10 Essential (primary) hypertension; E11.9 Type 2 diabetes mellitus without complications; F17.200 Nicotine dependence, unspecified, uncomplicated; Z79.84 Long term (current) use of oral hypoglycemic drugs; Z79.899 Other long term (current) drug therapy
CPT/HCPCS: 73630; 75635; 80053; 85025; 93923; 99283; Q9967; A4216

== ENCOUNTER 2018-03-23 11:57 | Outpatient (CLI) | payer MEDICARE, OTHER, SELFPAY ==
[2018-03-22 11:45] VITALS: BMI 23.4
[2018-03-23] VITALS (9 sets, daily range): BP systolic 108–141; BP diastolic 46–65; PULSE 84–94; RESP 16–18; TEMP 36.5–37.1; O2SAT 96–99; BMI 23.4
[2018-03-23 12:12] LABS: Hematocrit 41.6 % (37-47); Hemoglobin 12.8 g/dl (12.0-15.0); Mean Corp Hgb Conc 30.8 g/gl (32-36); Mean Corpuscular Hgb 28.1 pg (27.0-32.0); Mean Corpuscular Volume 91.2 fL (81-99); Platelet Count 247 K/mm3 (150-450); RBC Distribution Width CV 14.6 % (11.6-14.6); RBC Distribution Width SD 47.9 fl (35.1-43.9); Red Blood Count 4.56 M/mm3 (4.2-5.4); White Blood Count 11.7 K/mm3 (4.4-11.0)
[2018-03-23 12:13] LABS: Scan Indicated on CBC? Y/N NO
--- NOTE | 2018-03-23 12:22 | CDU_ITS ---
Reason For Study: Carotid bruit Rt. Velocities/BP Lt. Velocities/BP Prox CCA 93.2/28.1 cm/sec. Prox CCA 69.8/23.5 cm/sec. Mid CCA 80.9/25.8 cm/sec. Mid CCA 74.5/26.4 cm/sec. Dist CCA 76.2/26.4 cm/sec. Dist CCA 65.1/21.7 cm/sec. Prox ICA 134.0/41.3 cm/sec. Prox ICA 296.0/97.3 cm/sec. Mid ICA 149.0/57.9 cm/sec. Mid ICA 239.0/59.9 cm/sec. Dist ICA 156.0/49.1 cm/sec. Dist ICA 140.0/51.1 cm/sec. Rt. ICA/CCA = 1.9. Lt. ICA/CCA = 3.9. Prox ECA 223.0/39.3 cm/sec. Prox ECA 144.0/14.1 cm/sec. Rt. Vert. 93.2/31.1 cm/sec. Lt. Vert. 108.0/25.5 cm/sec. Right Extracranial There is heterogeneous, irregular atherosclerotic plaque noted in the right common carotid artery. There is heterogeneous, irregular atherosclerotic plaque noted in the right internal carotid artery. There is heterogeneous, irregular atherosclerotic plaque noted in the right external carotid artery. Antegrade flow is noted in the right vertebral artery. Left Extracranial There is heterogeneous, irregular atherosclerotic plaque noted in the left common carotid artery. There is heterogeneous, irregular atherosclerotic plaque noted in the left internal carotid artery. There is heterogeneous, irregular atherosclerotic plaque noted in the left external carotid artery. Antegrade flow is noted in the left vertebral artery. Procedure Carotid Duplex 42501. Exam performed in department. 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 Irregular plague at the proximal right external carotid with >50% stenosis Irregular calcific plague at the distal left common carotid Irregular calcific plague at the proximal left internal carotid with >70& stenosis. Irregular calcific plague at the proximal left external carotid with <50% stenosis. Approaching 50% stenosis bilateral vertebrals Ordering Physician: Federico Mansfield Referring Physician: Chico Holbrook Performed By: Sade Munoz RVT
[2018-03-23 12:24] LABS: BUN 10 mg/dL (7-18); Creatinine, Serum 0.83 mg/dL (0.55-1.02); Glucose 144 mg/dL (74-106)
[2018-03-23 12:25] LABS: Anion Gap 8 (5-15); Calcium,Total 8.9 mg/dL (8.5-10.1); Chloride 105 mmol/L (98-107); EST Glomerular Filtration Rate 72 mL/min (>60); Est Glom Filt Rate - Afr Amer 87 mL/min (>60); Potassium 3.6 mmol/L (3.5-5.1); Sodium Level 142 mmol/L (136-145)
[2018-03-23 17:51] LABS: ACT Activated Clotting Time 257 sec (74-137)
[2018-03-23 17:51] LABS: ACT Activated Clotting Time 136 sec (74-137)
[2018-03-23 17:51] LABS: ACT Activated Clotting Time 257 sec (74-137)
--- NOTE | 2018-03-23 18:07 | PCM.DC.GS ---
Discharge Diet: 1600 Calorie Control Diet Discharge Activity: May Not Drive May shower in (days): 1 Lifting Restrictions: 10 pounds Call your doctor if your incision/area has: Continuous Slow Oozing, Sudden Increased Bleeding, Increased Pain/ Swelling, Increased Redness, Foul Smelling Discharge Call your doctor if you observe: Fever of 101 or Higher Suture Line Care: Avoid Pulling/Pushing, Avoid Pinching/Bending Additional Dressing/Incision Instructions:: Please follow the written Hvac Refrigeration Technician instructions for wound care Additional Instructions: I recommend podiatry follow up regarding toenail and foot pain issues please. Allergies/Adverse Reactions: Allergies levofloxacin [From Levaquin] Allergy (Verified 03/23/18 09:20) Shortness of breath hydrocodone Adverse Reaction (Verified 03/22/18 11:45) Nausea Medications to take at Discharge RX: Albuterol Aerosols [Ventolin Aerosols] 2.5 mg INHALATION Q4H PRN #25 vial 09/04/16 RX: Benazepril/Hydrochlorothiazide [Benazepril-Hctz 10-12.5 mg Tab] 1 tab PO DAILY 09/04/16 RX: Nebulizer [Aeroneb Go Nebulizer] 1 ea MC Q4H PRN PRN #1 ea 09/04/16 RX: Omeprazole 1 tab PO DAILY 09/04/16 RX: Sertraline HCl [Zoloft] 50 mg PO DAILY 09/04/16 RX: Ascorbic Acid [Vitamin C] 1 tab PO DAILY 11/01/16 RX: Cranberry 1 tab PO DAILY 11/01/16 RX: Ezetimibe [Zetia] 10 mg PO DAILY 11/01/16 RX: Montelukast [Singulair] 10 mg PO DAILY 11/01/16 RX: Ubidecarenone [Coenzyme Q-10] 1 tab PO DAILY 11/01/16 RX: Budesonide/Formoterol 160/4.5 [Symbicort 160/4.5 Mcg Inhaler (SP)] 2 puff INHALATION BID 11/04/16 RX: glipiZIDE [Glucotrol] 10 mg PO BIDAC #60 tab 11/04/16 albuterol sulfate HFA 90 mcg/actuation aerosol inhaler 2 puff INHALATION Q4H PRN g 01/20/17 ipratropium 20 mcg-albuterol 100 mcg/actuation mist for inhalation 1 puff INHALATION Q6H PRN 01/20/17 celecoxib 100 mg capsule 100 mg PO DAILY cap 11/23/17 gabapentin 100 mg capsule 100 mg PO DAILY 11/23/17 guaifenesin ER 1,200 mg tablet, extended release 12 hr 1,200 mg PO Q12H 11/23/17 nystatin 100,000 unit/mL oral suspension 5 ml MUCOUS MEMBRANE TID #250 ml 11/23/17 Lyrica 03/22/18 Meloxicam 03/22/18 RX: Aspirin [Aspirin, Baby] 81 mg PO DAILY@0800 #30 tab.chew 03/22/18 RX: Clopidogrel Bisulfate [Plavix] 75 mg PO DAILY #30 tab 03/22/18 Primary Care Physician: Chico Bejarano DO [Primary Care Provider] - Test Results: Test results from this visit will be discussed in further detail at your follow-up appointment, if applicable. Please Follow Up With: Federico Mansfield MD - [phone] When: Call to make an appointment to be seen in about 10 days.
--- NOTE | 2018-03-23 18:19 | OP.PCM_ITS ---
Problem List (1) Ischemic foot Status: Acute Report of Operation Date of Procedure: 03/23/18 Pre-Operative Diagnosis: Critical ischemia left lower extremity and foot. Multisegmental peripheral vascular occlusive disease bilaterally Post-Operative Diagnosis: Critical stenosis junction of the right common iliac artery and right external iliac artery. Severe stenosis of the right mid and distal external iliac artery. Critical stenosis of the left mid common iliac artery. Severe stenosis of the left external iliac artery Surgery/Procedure Performed:: Abdominal pelvic left lower extremity arteriogram with catheter placed into the left superficial femoral artery. Right common iliac and external iliac 5 x 200 mm ever cross angioplasty. Right common iliac extending to the external iliac 8 x 40 mm ever flex stenting with post dilatation with a 6 x 20 mm Powerflex balloon. Left common iliac and external iliac 5 x 120 mm ever cross angioplasty. Left common iliac 7 x 30 mm ever flex stenting with post dilatation utilizing 6 x 20 mm Powerflex balloon Description of Surgical Findings:: Timeout and informed consent was obtained. 72-year-old female was taken to the special procedure lab. Bilateral groins were sterilely prepped draped. She received 50 mcg of fentanyl and 1 mg of Versed as intravenous sedation. Ultrasound was used to identify the right common femoral artery. There is extensive calcific plaque involving the right common femoral artery. An area of relative lack of plaque I instilled 2% lidocaine. Throughout the procedure a total of 15 cc was used. Local was instilled and then a micropuncture needle was placed under ultrasound guidance micropuncture wire was inserted micropuncture sheath inserted. An 035 J-wire was initially placed but met obstruction and so I then placed an 035 angled Glidewire. I advanced a 5 [place] short sheath over the Glidewire. I then used the Glidewire placed in the abdominal aorta advance a 5 [place] universal flush catheter. Using Visipaque contrast the rate of 15 cc a second for 15 cc a AP aortogram was obtained. In order to make further advancements I placed a 5 x 2 mm ever cross balloon over the Glidewire. It is of note that prior to this the patient received 2000 units of heparin. Based upon ACT measurements she received received an additional 1000 units of heparin during the procedure. The angioplasty of the right common iliac and external iliac system was performed in order to further advance devices. I then was able to use a stiff angled Glidewire to place the 5 [place] universal flush catheter into the left common iliac. I then was able to advance the stiff Glidewire into the left profundofemoral artery. I advanced a 035 quick cross catheter in the left profundofemoral artery. I then was able to exchange out for a 6 B[place]udian 45 cm sheath. I had performed balloon angioplasty of the left common iliac and external iliac with the 5 x 120 mm ever flex balloon. I then placed the quick cross catheter into the left superficial femoral artery and obtain static views of the left lower extremity including the digits. I then The stiff Glidewire in place and utilizing the 6 B[place]udian sheath I was able to take images of the proximal left common iliac. I placed a 7 x 30 mm ever flex stent and an area of residual stenosis and limited dissection. The stent was deployed and then seated in place with a 6 x 20 m Powerflex balloon. Hand-injection views now demonstrated dramatic improvement. I withdrew the sheath to the right iliac system and hand-injection view demonstrated clinically significant stenosis right at the origin of the internal iliac on the right. I placed a 8 x 40 mm ever flex stent across the common iliac external iliac and seated in place with a 6 x 20 mm Powerflex balloon. Hand-injection view demonstrated good persistent flow within the right internal iliac. I could not completely resolve the area of stenosis at that junction between the common iliac and external iliac but it was markedly improved. The patient had discomfort on attempts to further inflate with the 6 mm balloon. The sheath was then removed by inserting a minx sheath. The minx device was d eployed gentle pressure was held complete hemostasis was achieved there were no apparent complications blood loss was minimal. The patient had a 2+ palpable left PT pulse at the completion the foot was very warm and viable. She was subsequently sent to the floor for observation overnight Images demonstrate diffuse calcific plaque involving narrowing of the distal abdominal aorta. There is evidence of very tight stenosis at the junction of the right common iliac and external iliac with a very large dominant right internal iliac artery. There is diffuse disease involving the right external iliac. There is a quite tight left common iliac artery in approximately its midportion of at least 80-90%. There is additional longer segment stenosis of the left external iliac at 80%. The left posterior tibial is the dominant vessel below the knee although the superficial femoral and popliteal are patent on the left and there is is three-vessel runoff to the left foot. There is exophytic calcific plaque diffusely involving the right common femoral artery. Subsequent to bilateral iliac angioplasty and stenting now there is good in-line arterial inflow to bilateral groins. The left profundofemoral superficial femoral popliteal and infrageniculate three-vessel runoff is intact. There is at least moderate to 60% stenosis of the right common femoral artery with diffuse irregular disease. Further views of the right lower extremity were not obtained today. Federico Mansfield M.D., F.A.C.S. Type of Anesthesia:: IV Sedation, Local
[2018-03-23] MEDS: 0.9% Normal Saline 1,000 ML 50 ML IV (20:18)
[2018-03-23] MEDS: Acetaminophen 325 MG Tablet PO (21:36)
[2018-03-23] MEDS: NYSTATIN 500,000 UNIT/5 ML UDC 500000 UNIT PO (21:38)
[2018-03-23] MEDS: Budesonide Respules 0.5 MG/2 ML AMPUL.NEB. INHALATION (23:00)
[2018-03-23] MEDS: Albuterol 2.5 MG/3 ML VIAL.NEB. INHALATION (23:00)
--- NOTE | 2018-03-23 23:45 | NURSING ---
Post-cardiac assessment completed, assisted patient up and walked around halls. Assisted to RR and back to bed. Site clean, dry and soft to touch following walk. Patient C/O tenderness but states is not painful. Right pedal pulse palpitated and left pedal pulse dopplered. Will continue to monitor.
[2018-03-24] VITALS: BP 128/62; BP 141/61; PULSE 88; RESP 18; TEMP 36.5; O2SAT 95
[2018-03-24 04:15] VITALS: BP 134/60; BP 141/61; PULSE 91; RESP 18; TEMP 36.6; O2SAT 92
[2018-03-24] MEDS: Acetaminophen 325 MG Tablet PO (04:19)
[2018-03-24 04:59] VITALS: PULSE 87; RESP 16
[2018-03-24] MEDS: Albuterol 2.5 MG/3 ML VIAL.NEB. INHALATION (04:59)
[2018-03-24] MEDS: NYSTATIN 500,000 UNIT/5 ML UDC 500000 UNIT PO (05:43)
[2018-03-24 06:07] VITALS: BP 128/52; PULSE 92; RESP 16; TEMP 36.7; O2SAT 93
--- NOTE | 2018-03-24 06:08 | PCM.GEN.VAS ---
General Vascular Note - Subjective Pt c/o left heel and great toe pain She has been on lyrica for diabetic pain - Objective Vital Signs Temp Pulse Resp BP Pulse Ox 97.8 F 87 16 134/60 H 92 03/24/18 04:15 03/24/18 04:59 03/24/18 04:59 03/24/18 04:15 03/24/18 04:15 Oxygen Flow Rate (L/min) 2 Oxygen Delivery Method Room Air Weight: 120 lb Body Mass Index (BMI) 23.4 Intake and Output for Last 24 Hours 03/22/18 03/23/18 03/24/18 23:59 23:59 23:59 Intake Total 760 / 760 Balance 760 / 760 Laboratory Tests Past 24 Hrs 03/23/18 03/23/18 03/23/18 12:02 12:02 16:25 WBC 11.7 H RBC 4.56 Hgb 12.8 Hct 41.6 MCV 91.2 MCH 28.1 MCHC 30.8 L RDW 14.6 RDW Differential 47.9 H Plt Count 247 MPV 10.0 Activated Clotting Time 136 Sodium 142 Potassium 3.6 Chloride 105 Carbon Dioxide 29.0 Anion Gap 8 BUN 10 Creatinine 0.83 Estim Creat Clear Calc 45.30 Est GFR (MDRD) Af Amer 87 Est GFR (MDRD) Non-Af 72 BUN/Creatinine Ratio 12.0 Glucose 144 H Calcium 8.9 03/23/18 03/23/18 16:42 17:19 WBC RBC Hgb Hct MCV MCH MCHC RDW RDW Differential Plt Count MPV Activated Clotting Time 257 H 257 H Sodium Potassium Chloride Carbon Dioxide Anion Gap BUN Creatinine Estim Creat Clear Calc Est GFR (MDRD) Af Amer Est GFR (MDRD) Non-Af BUN/Creatinine Ratio Glucose Calcium Vascular Exam: L Femoral: 3+, L Popliteal: 2+, L Posterior Tibial: 1+ - triphasic doppler, L Doraslis Pedis: 0 - strong plantar arch, R Femoral: 3+ - supple right groin, clean and dry - Assessment/Plan Very nice result bilateral iliac stenting Significant irregular plague right common femoral artery Will plan office follow up Pt on ASA and clopidogrel as started per ER
[2018-03-24 07:11] LABS: Bedside Glucose 143 mg/dL (70-110)
[2018-03-24 07:35] VITALS: O2SAT 95
[2018-03-24] MEDS: Aspirin 81 MG TAB.CHEW PO (07:57)
[2018-03-24] MEDS: glipiZIDE 10 MG Tablet PO (07:58)
--- NOTE | 2018-03-24 09:20 | NURSING ---
Spoke with MD Ortez office at this time to get 3 month prescription for Plavix [facility]
[2018-03-24 09:30] VITALS: BP 143/87; PULSE 92; RESP 16; TEMP 36.7; O2SAT 93
[2018-03-24] MEDS: Clopidogrel Bisulfate 75 MG Tablet PO (09:43)
[2018-03-24] MEDS: Sertraline 50 MG Tablet PO (09:43)
[2018-03-24] MEDS: Lisinopril 10 MG Tablet PO (09:44)
[2018-03-24] MEDS: hydroCHLOROthiazide 12.5mg 12.5 MG PO (09:44)
[2018-03-24] MEDS: Pantoprazole Sodium 20 MG Tablet PO (09:46)
--- NOTE | 2018-03-24 11:02 | NURSING ---
All documentation done by student - reviewed or done with this RN
== END 2018-03-24 06:07 | disposition home or self-care (01) ==
LOC: CLSP 11:59 → PCU 03-25 07:43
PROVIDERS: Family Provider Student in an Organized Health Care Education/Training Program; PCP Student in an Organized Health Care Education/Training Program; Referring Provider Surgery; Visit Provider Surgery
DX: I73.9 Peripheral vascular disease, unspecified (principal); R09.89 Other specified symptoms and signs involving the circulatory and respiratory systems; I10 Essential (primary) hypertension; E78.00 Pure hypercholesterolemia, unspecified; E11.9 Type 2 diabetes mellitus without complications; J44.9 Chronic obstructive pulmonary disease, unspecified; F17.200 Nicotine dependence, unspecified, uncomplicated; Z79.51 Long term (current) use of inhaled steroids; Z79.84 Long term (current) use of oral hypoglycemic drugs; Z79.82 Long term (current) use of aspirin; Z79.02 Long term (current) use of antithrombotics/antiplatelets; Z79.899 Other long term (current) drug therapy
CPT/HCPCS: 36200; 36245; 36415; 37221; 75625; 75710; 76937; 80048; 82962; 85027; 85347; 93880; 94640; 99152; 99153; C1760; J7030; J7040; Q9967; C1725; C1769; C1876; C1887; C1894

== ENCOUNTER 2018-05-02 09:52 | Observation (INO) | payer MEDICARE, OTHER, SELFPAY ==
[2018-04-04 13:26] VITALS: BMI 23.4
[2018-04-25 11:35] VITALS: BP 94/58; PULSE 79; RESP 18; TEMP 36.9; O2SAT 95; BMI 22.7
--- NOTE | 2018-04-25 11:40 | SDCEKG_ITS ---
Test Reason : Blood Pressure : / mmHG Vent. Rate : 077 BPM Atrial Rate : 077 BPM P-R Int : 158 ms QRS Dur : 088 ms QT Int : 390 ms P-R-T Axes : 085 062 063 degrees QTc Int : 441 ms Normal sinus rhythm Normal ECG Confirmed by MUKUND JACOBSON, JOHN ([id number]), wild oyster harvester DESTIN MCCALLUM ([id number]) on 04/26/2018 4:16:11 PM Referred By: Federico Mansfield Confirmed By:JOHN DUVAL MD
[2018-04-25 12:15] LABS: Hematocrit 39.8 % (37-47); Hemoglobin 11.9 g/dl (12.0-15.0); Mean Corp Hgb Conc 29.9 g/gl (32-36); Mean Corpuscular Hgb 27.4 pg (27.0-32.0); Mean Corpuscular Volume 91.5 fL (81-99); Mean Platelet Vol. 10.8 fl (6.2-12.0); Platelet Count 252 K/mm3 (150-450); RBC Distribution Width CV 14.6 % (11.6-14.6); RBC Distribution Width SD 47.9 fl (35.1-43.9); Red Blood Count 4.35 M/mm3 (4.2-5.4); White Blood Count 7.7 K/mm3 (4.4-11.0)
[2018-04-25 12:19] LABS: AST(SGOT) 17 U/L (15-37); Alanine Aminotransfer ALT/SGPT 18 U/L (13-56); Albumin, Serum 3.6 g/dL (3.2-5.0); Alkaline Phosphatase 73 U/L (45-117); Anion Gap 4 (5-15); BUN 19 mg/dL (7-18); BUN/Creat Ratio 21.8 RATIO (10-20); Bilirubin, Direct 0.12 mg/dL (0.00-0.30); Calcium,Total 8.8 mg/dL (8.5-10.1); Chloride 107 mmol/L (98-107); Creatinine, Serum 0.87 mg/dL (0.55-1.02); EST Glomerular Filtration Rate 68 mL/min (>60); Est Glom Filt Rate - Afr Amer 82 mL/min (>60); Estimated Creatinine Clearance 43.22 ml/min; Globulin 3.4 g/dL (2.2-4.2); Glucose 82 mg/dL (74-106); Potassium 3.7 mmol/L (3.5-5.1); Sodium Level 143 mmol/L (136-145)
[2018-04-25 12:20] LABS: Scan Indicated on CBC? Y/N NO
[2018-04-25 12:22] LABS: Partial Thromboplast Time 28.8 Seconds (24.1-36.2); Prothrombin Time (Protime)PT. 13.3 SECONDS (11.7-14.9)
[2018-04-25 12:35] LABS: Hemoglobin A1c 6.4 % (4.2-6.3)
[2018-05-02] VITALS (13 sets, daily range): BP systolic 99–175; BP diastolic 44–67; PULSE 72–97; RESP 14–18; TEMP 36.5–37.2; O2SAT 95–100; BMI 22.7; BMI 22.8
[2018-05-02 06:20] LABS: Bedside Glucose 83 mg/dL (70-110)
--- NOTE | 2018-05-02 07:06 | DCINST_ITS ---
Discharge Diet: Light diet - advance as tolerated - if you have questions about your diet instructions, please talk to you doctor. Discharge Activity: May Not Drive - for 3-5 days or while taking narcotic pain medicine. May shower in (days): 3 Lifting Restrictions: 10 pounds Call your doctor if your incision/area has: Continuous Slow Oozing, Sudden Increased Bleeding, Increased Pain/ Swelling, Increased Redness, Foul Smelling Discharge Call your doctor if you observe: Fever of 101 or Higher Suture Line Care: Avoid Pulling/Pushing, Avoid Pinching/Bending Additional Dressing/Incision Instructions:: Change or remove dressing in 4 days. Leave steri-strips in place for 1 week. Allergies/Adverse Reactions: Allergies levofloxacin [From Levaquin] Allergy (Verified 04/25/18 11:11) Shortness of breath hydrocodone Adverse Reaction (Verified 04/25/18 11:11) Nausea Medications to take at Discharge Benazepril/Hydrochlorothiazide [Benazepril-Hctz 10-12.5 mg Tab] 1 tab PO DAILY 09/04/16 Omeprazole 1 tab PO DAILY 09/04/16 Sertraline HCl [Zoloft] 50 mg PO DAILY 09/04/16 Ascorbic Acid [Vitamin C] 1 tab PO DAILY 11/01/16 Cranberry 1 tab PO DAILY 11/01/16 Ezetimibe [Zetia] 10 mg PO DAILY 11/01/16 Montelukast [Singulair] 10 mg PO DAILY 11/01/16 Ubidecarenone [Coenzyme Q-10] 1 tab PO DAILY 11/01/16 Budesonide/Formoterol 160/4.5 [Symbicort 160/4.5 Mcg Inhaler (SP)] 2 puff INHALATION BID 11/04/16 albuterol sulfate HFA 90 mcg/actuation aerosol inhaler 2 puff INHALATION Q4H PRN g 01/20/17 ipratropium 20 mcg-albuterol 100 mcg/actuation mist for inhalation 1 puff INHALATION Q6H PRN 01/20/17 guaifenesin ER 1,200 mg tablet, extended release 12 hr 1,200 mg PO Q12H PRN 11/23/17 Aspirin [Aspirin, Baby] 81 mg PO DAILY@0800 #30 tab.chew 03/22/18 Clopidogrel Bisulfate [Plavix] 75 mg PO DAILY #30 tab 03/22/18 Lyrica 25 mg PO BID 03/22/18 Meloxicam 15 mg PO DAILY 03/22/18 Albuterol Aerosols [Ventolin Aerosols] 2.5 mg INHALATION Q4H PRN PRN 04/25/18 buPROPion tablets [Wellbutrin tablets] 75 mg PO BID 04/25/18 glipiZIDE [Glucotrol] 10 mg PO QHS 04/25/18 Primary Care Physician: Chico Bejarano DO [Primary Care Provider] - Test Results: Test results from this visit will be discussed in further detail at your follow- up appointment, if applicable. Please Follow Up With: Federico Mansfield MD - [phone] When: Call to make an appointment to be seen in about 10 days.
[2018-05-02] MEDS: Cefazolin 2 GM in 0.9% Normal Saline 100 ML IV (07:13)
--- NOTE | 2018-05-02 07:15 | PLAQ_PTH ---
PATIENT: HARIS NEWMAN LOC: MS3 U#:[id number] AGE/SX: 72/F [place] [facility] [place]: Dr. Federico Mansfield MD : 1945 BED: 1 DIS: 05/03/2018 SPEC #: [id number] RECD: 05/02/18 16:07 STATUS: STEPHANIE ORRLoyda #: [id number] EVA: 05/02/18 07:[address]: Federico Mansfield DEPT: SURGICAL PATHOLOGY RECD BY: Paola Carmichael ENTERED: 05/03/18 11:21 SP TYPE: PLAQUE OTHR DR: Dr. Chico Bejarano, DO Tissues: PLAQUE Procedures: Decalcification bone/plaque Surgery Specimen Level III HEADER OPERATION: Right common femoral endarterectomy with patch angioplasty PRE-OP DIAGNOSIS: Peripheral artery disease, carotid stenosis, bilateral TISSUE SUBMITTED: Right common femoral artery plaque MICROSCOPIC DIAGNOSIS Right femoral artery plaque, endarterectomy: Fragments of calcified atheromatous plaque with focal ossification and extramedullary hematopoiesis. AM:rock 05/06/18 GROSS DESCRIPTION Received in fixative is one container labeled with the patient's name and designated right common femoral artery plaque. The specimen consists of multiple irregular fragments of pink-thapa gritty soft tissue that in aggregate measure 2.5 x 2 x 0.2 cm. The specimen is totally submitted in one cassette after decalcification. / AM:rock 05/03/18 TC:5 CPT: 20480, 51590
[2018-05-02 07:55] LABS: ACT Activated Clotting Time 136 sec (74-137)
[2018-05-02 08:36] LABS: ACT Activated Clotting Time 246 sec (74-137)
[2018-05-02] MEDS: Heparin Injection (Vial) 5,000 UNIT/ML VIAL 5000 UNIT (09:45)
[2018-05-02] MEDS: Bupivacaine Mpf 0.5% 30 ML VIAL (09:49)
--- NOTE | 2018-05-02 10:03 | OP.PCM_ITS ---
Problem List (1) PAD (peripheral artery disease) Status: Acute Report of Operation Date of Procedure: 05/02/18 Pre-Operative Diagnosis: Symptomatic arterial occlusive disease right common femoral artery Post-Operative Diagnosis: Same Surgery/Procedure Performed:: Right common femoral artery endarterectomy with Vascu-Guard bovine patch angioplasty. Vascu-Guard patch reference number of VG [id number], lot number [id number], PN number [id number]. IC 99 Description of Surgical Findings:: Informed consent was obtained. 72-year-old female taken out from placement table underwent general anesthesia. Ancef 2 g given intraoperatively. The right lower extremity sterilely prepped and draped. Ioban draping was used as well. An oblique incision was made in the right groin sharp dissection carried down through the substance tissue the superficial femoral artery profundofemoral artery 2 branches and the common femoral artery identified. Dissection was performed the patient had a previous puncture site the right common femoral artery and upon transecting the scar wanted to bleed so I used a 7-0 Prolene secure that. Dissected underneath the inguinal ligament. Dissected distally first couple centimeters on the superficial femoral artery. Vessel loops were placed were indicated. The patient then received 6000 units of IV heparin then based upon ACT measurements at approximately half hour she received an additional 1000 units of heparin. Peripheral vascular clamps were applied. An 11 blade was used to make an arteriotomy was extended with Kemp scissors. There were 2 areas of significant plaque 1 right proximal to the bifurcation of the profundofemoral and superficial femoral and one slightly more proximally located. I used a [place] to help free and released the series of significant occlusive plaque. Careful use forceps to remove further debris. There was still very have a denied calcified disease and involving the superficial femoral artery but that had no visible endpoint. I used the bovine patch shaped to form perform a patch angioplasty with running 6-0 Prolene. Several interrupted 7-0 Prolene's were required to obtain hemostasis. The vessel was allowed to backflow and then antegrade flow was reestablished. I did give the patient and aliquots a total of 30 mg of protamine. There was still some bleeding at the very apex so I placed some Surgicel and after a couple applications I decided to leave the last piece intact. Hemostasis was felt to been achieved. The wound was closed with deep layers of running 3-0 Vicryl x3. The skin edges proximal and running septic or 4 Monocryl. The foot was inspected and noted to be viable there was Doppler signals particularly strong in the posterior tibial. Sponge and instrument and needle counts were reported the surgery were correct. Blood loss was 200 cc. She was taken to the recovery area in satisfactory condition without apparent complication. Specimens plaque. Drains none. Blood loss 200 cc. Federico Mansfield M.D., F.A.C.S. Type of Anesthesia:: General Anesthesiologist: Toya Juan
[2018-05-02 11:20] LABS: Bedside Glucose 119 mg/dL (70-110)
[2018-05-02] MEDS: 0.9% NaCl Peripheral Flush Adult/Peds IV ×2 (13:17→22:40)
[2018-05-02] MEDS: Cefazolin 1 GM/50 ML BAG IV ×2 (17:16→22:39)
[2018-05-02] MEDS: buPROPion 75 MG Tablet PO ×2 (17:16→21:26)
[2018-05-02] MEDS: Sertraline 50 MG Tablet PO (17:17)
[2018-05-02] MEDS: hydroCHLOROthiazide 12.5mg 12.5 MG PO (17:18)
[2018-05-02] MEDS: Montelukast 10 MG Tablet PO (17:18)
[2018-05-02] MEDS: Lisinopril 10 MG Tablet PO (17:19)
[2018-05-02] MEDS: Clopidogrel Bisulfate 75 MG Tablet PO (17:20)
[2018-05-02] MEDS: Aspirin 81 MG TAB.CHEW PO (17:20)
[2018-05-02] MEDS: Meloxicam 15 MG Tablet PO (17:20)
[2018-05-02] MEDS: Ezetimibe 10 MG Tablet PO (17:21)
[2018-05-02] MEDS: Pantoprazole Sodium 20 MG Tablet PO (17:29)
--- NOTE | 2018-05-02 19:34 | NURSING ---
Pt walked to the bathroom with the assist of 1. Tolerated well. Returned to the chair with her legs elevated & scd's applied. Pt used the IS 10 times and reminded her to use the IS 10 times every hour while awake. Instructed the pt that she is not able to get up by herself. Pt verbalized understanding.
--- NOTE | 2018-05-02 21:05 | NURSING ---
scattered bruising on pt's right leg-areas marked. will continue to monitor.
[2018-05-02] MEDS: Pregabalin 25 MG Capsule PO (21:26)
[2018-05-02] MEDS: Acetaminophen 325 MG Tablet 650 MG PO (21:35)
[2018-05-03 03:59] VITALS: BP 101/47; PULSE 81; RESP 18; TEMP 37.1; O2SAT 94
--- NOTE | 2018-05-03 04:10 | NURSING ---
walked pt to the bathroom-tolerated well. pt stated her leg is painful while walking. pt stated it was hard to explain the pain. As soon as pt was in bed, denied pain.
--- NOTE | 2018-05-03 05:40 | PCM.GEN.VAS ---
General Vascular Note - Subjective Pt does not have any significant pain at rest - Objective Vital Signs Temp Pulse Resp BP Pulse Ox 98.8 F 81 18 101/47 L 94 05/03/18 03:59 05/03/18 03:59 05/03/18 03:59 05/03/18 03:59 05/03/18 03:59 Oxygen Flow Rate (L/min) 2 Oxygen Delivery Method Room Air Weight: 116 lb 9.992 oz Body Mass Index (BMI) 22.7 Finger Stick Blood Glucose 119 Intake and Output for Last 24 Hours 05/01/18 05/02/18 05/03/18 23:59 23:59 23:59 Intake Total 2960 / 2960 Output Total Balance 2959 / 2959 Laboratory Tests Past 24 Hrs 05/02/18 05/02/18 07:46 08:27 Activated Clotting Time 136 246 H Vascular Exam: R Femoral: 3+, R Popliteal: 1+, R Posterior Tibial: 1+, R Doraslis Pedis: 1+ - Assessment/Plan Right groin supple and dry Plan discharge today on home meds
[2018-05-03] MEDS: Enoxaparin 40 MG/0.4 ML Syringe SC (06:28)
[2018-05-03] MEDS: Budesonide Respules 0.5 MG/2 ML AMPUL.NEB. INHALATION (06:34)
[2018-05-03 06:35] VITALS: PULSE 85; RESP 16; O2SAT 93
[2018-05-03] MEDS: Albuterol 2.5 MG/3 ML VIAL.NEB. INHALATION (06:35)
[2018-05-03 08:43] VITALS: BP 81/61; BP 84/42; PULSE 87; RESP 16; TEMP 37; O2SAT 96
[2018-05-03 08:51] VITALS: BP 105/54
== END 2018-05-03 10:07 | disposition home or self-care (01) ==
LOC: MS3 10:18
PROVIDERS: Anesthesiology; Admitting Provider Surgery; Family Provider Student in an Organized Health Care Education/Training Program; PCP Student in an Organized Health Care Education/Training Program; Referring Provider Surgery; Visit Provider Surgery
PROC: (CPT 35371; principal; 2018-05-02 06:55)
DX: E11.51 Type 2 diabetes mellitus with diabetic peripheral angiopathy without gangrene (principal); I70.201 Unspecified atherosclerosis of native arteries of extremities, right leg; E78.00 Pure hypercholesterolemia, unspecified; K21.9 Gastro-esophageal reflux disease without esophagitis; F41.9 Anxiety disorder, unspecified; I10 Essential (primary) hypertension; J43.9 Emphysema, unspecified; G25.81 Restless legs syndrome; Z79.899 Other long term (current) drug therapy; Z79.82 Long term (current) use of aspirin; Z79.01 Long term (current) use of anticoagulants; Z79.84 Long term (current) use of oral hypoglycemic drugs; Z87.891 Personal history of nicotine dependence; I65.23 Occlusion and stenosis of bilateral carotid arteries
CPT/HCPCS: 35371; 80048; 80076; 82962; 83036; 85027; 85347; 85610; 85730; 88304; 88311; 93005; 94640; 94762; 96365; 96366; 96372; 97802; 99218; J7120; A4216; C1757; G0378; G0379; J2405

== ENCOUNTER → 2018-06-03 10:26 | Outpatient (CLI) | payer MEDICARE, OTHER, SELFPAY ==
[2018-05-02 11:50] VITALS: BMI 22.7
--- NOTE | 2018-06-03 10:28 | ART_ITS ---
Reason For Study: Claudication Procedure A bilateral lower extremity continuous wave Doppler with analog waveform analysis,segmental pressures,and ankle brachial indexes with exercise. Left Segmental Pressures Left brachial= 138mmHg. Left thigh = 141mmHg. Left calf = 121mmHg. Left posterior tibial artery = 133mmHg. Left dorsalis pedis artery = 131mmHg. The left dorsalis pedis waveforms are biphasic. The left posterior tibial artery waveforms are biphasic. Right Segmental Pressures Right brachial= 141mmHg. Right thigh = 143mmHg. Right calf = 126mmHg. Right posterior tibial artery = 118mmHg. Right dorsalis pedis artery = 110mmHg. The right dorsalis pedis waveforms are biphasic. The right posterior tibial artery waveforms are biphasic. Indices The right ankle brachial index by the dorsalis pedis is 0.78. The right ankle brachial index by the posterior tibial artery is 0.84. The right post exercise ankle brachial index is 0.29. The left ankle brachial index by the dorsalis pedis is 0.93. The left ankle brachial index by the posterior tibial artery is 0.94. The left post exercise ankle brachial index is 0.56. Interpretation Summary Markedly abnormal right lower extremity post-exercise indices consistent with vascular claudication, severe.Possible infa-geniculate disease. Abnormal left lower extremity post-exercise indices consistent with vascular claudication. Possible infra-geniculate location. Marked improvement on the left from the previous exam of 03/22/18 Ordering Physician: Federico Mansfield Referring Physician: Chico Holbrook Performed By: Dianna Bruce RVT
== END ==
PROVIDERS: Family Provider Student in an Organized Health Care Education/Training Program; PCP Student in an Organized Health Care Education/Training Program; Referring Provider Surgery; Visit Provider Surgery
DX: I73.9 Peripheral vascular disease, unspecified (principal)
CPT/HCPCS: 93924

== ENCOUNTER → 2018-06-28 08:06 | Outpatient (CLI) | payer MEDICARE, OTHER, SELFPAY ==
[2018-06-22 08:56] VITALS: BMI 23.0
--- NOTE | 2018-06-28 08:11 | CT_ITS ---
STUDY: LOW DOSE CT LUNG CANCER SCREENING REASON FOR EXAM: Female, 72 years old. Screening RADIATION DOSAGE (If Supplied By Facility): CTDIvol = ( 2.01 ) mGy, DLP = ( 66.20 ) mGycm TECHNIQUE: No contrast was administered. Low dose technique was utilized (average mAS-38 and kVp 120). 1.25 mm axial source images with a slice interval of 1.25-mm were reconstructed in lung windows. 2.5 mm axial source images with a slice interval of 2.5-mm were reconstructed in lung windows. 5.0 mm axial source images with a slice interval of 5.0-mm were reconstructed in soft tissue windows. Nodule measured using lung windows on PACS and/or independent workstation with automated measurement of minimum and maximum diameter. Nodule measurement reported as average diameter rounded to the nearest whole number. Growth is defined as an increase ins size of greater than 1.5 mm. COMPARISON: None. NODULES: Nodule #: 1 Lung location: Left lower lobe Location in series: Series Number: 2 Image: 120 Size - D1 x D2 mm: mm: 4 average diameter Calcification: No Fat: No Several mild peripheral groundglass opacities are present in the right upper and lower lobes. Total lung nodules (excluding granulomas): 1 Emphysema: Mild Endobronchial lesion: No Aorta: Normal Coronary arteries: Calcifications Heart: Normal Pulmonary artery: Normal Mediastinal nodes: Normal Other chest and abdominal findings: None CT/Low Dose CT Lung Screening IMPRESSION: Left lower lobe 4 mm nodule. LRADS 2. 1 year follow-up recommended. Coronary artery calcifications. Mild emphysema. Several peripheral right upper and lower lobe ground glass opacities, likely infectious or inflammatory. IMPORTANT NOTES FOR USE: ACR Lung-RADS Version 1.0 Assessment Categories Release Date: June 05, 2013 Category: Coded 0-4 bases on nodule(s) with highest degree of suspicion. Negative screen is defined as categories 1 and 2; a positive screen is defined as categories 3 and 4. Category 3 and 4A nodules that are unchanged on interval CT should be coded as category 2, and individuals returned to screening in 12 months. Category 4X: Category 3 or 4 nodules with additional imaging findings that increase the suspicion of lung cancer, such as spiculation, GGN that doubles in size in 1 year, enlarged lymph notes, etc. Category Modifiers: S (significant finding unrelated to lung cancer) and C (prior history of treated lung cancer) may be added to the 0-4 Lung-RADS Electronically Signed: Fidencio Kahn, at 18:16 EDT Tel , Service support ,
== END ==
PROVIDERS: Family Provider Student in an Organized Health Care Education/Training Program; PCP Student in an Organized Health Care Education/Training Program; Referring Provider Internal Medicine Critical Care Medicine; Visit Provider Internal Medicine Critical Care Medicine
DX: F17.210 Nicotine dependence, cigarettes, uncomplicated (principal)
CPT/HCPCS: G0297

== ENCOUNTER 2018-07-18 14:34 | Emergency (ER) | payer MEDICARE, OTHER, SELFPAY ==
[2018-06-22 08:56] VITALS: BMI 23.0
[2018-07-18 14:35] VITALS: BP 143/64; PULSE 95; RESP 18; TEMP 36.4; O2SAT 95; BMI 24.6
--- NOTE | 2018-07-18 15:11 | RAD_ITS ---
STUDY: X-RAY - LEFT HUMERUS REASON FOR EXAM: Female, 72 years old. Pain following injury. TECHNIQUE: 2 view(s) of the humerus. COMPARISON: None. FINDINGS: Normal visualized humerus. There is no demonstrated fracture or osseous destructive process. There is no demonstrated soft tissue abnormality. RAD/Humerus min 2 Views IMPRESSION: Normal x-ray examination of the humerus. Electronically Signed: Kavin Jimenez, at 15:46 EDT , Service support ,
--- NOTE | 2018-07-18 15:51 | ED.DCSUM_ITS ---
- ER Visit Summary Date of Service: 07/18/18 Chief Complaint: Left arm injury History of Present Illness: The patient is a 72 F who hit her left upper arm on a revolving door the [facility] this morning. She has pain to this area, especially when trying to raise her arm over her head. She is right-hand dominant. She had previously been on Coumadin but is not on Coumadin currently. Physical Examination: Vital signs unremarkable. Head neck examination normal. Heart is regular rate and rhythm. Lung sounds are clear. Left upper extremity examination reveals mild tenderness to the midshaft of the left humerus, worse of the soft tissues. There is old appearing ecchymosis n oted scattered on her arm. She has full range of motion at the shoulder, but does have increased pain when raising over her head. Strong distal pulses and normal sensation are noted. Test Results: Left humerus x-rays reveal no bony abnormality. Emergency Department Course and Treatment: Patient will use Tylenol or ibuprofen as needed for pain. If symptoms are not improving in the next 1 to 2 weeks she will follow with her primary care physician. Treatment Plan: [] Disposition: Discharge Impression: Left arm contusion This note was generated with [employer] dictation software. It may contain incorrect words, spelling, and punctuation that were not noted in review of the chart prior to signing ED Disposition - Plan for ED Patient: Disposition: Home or Assisted Living Instructions: ED Contusion Upper Ext Referrals: Chico Bejarano DO [Primary Care Provider] - 1 Week if not improving
[2018-07-18 16:01] VITALS: PULSE 92; RESP 17; O2SAT 96
== END 2018-07-18 16:02 | disposition home or self-care (01) ==
PROVIDERS: Emergency Provider Emergency Medicine; Family Provider Student in an Organized Health Care Education/Training Program; PCP Student in an Organized Health Care Education/Training Program
DX: S40.022A Contusion of left upper arm, initial encounter (principal); W22.09XA Striking against other stationary object, initial encounter; Y93.9 Activity, unspecified; Y92.89 Other specified places as the place of occurrence of the external cause; Y99.8 Other external cause status; E11.9 Type 2 diabetes mellitus without complications; I10 Essential (primary) hypertension; J44.9 Chronic obstructive pulmonary disease, unspecified; Z72.0 Tobacco use
CPT/HCPCS: 73060; 99282

== ENCOUNTER 2018-08-11 16:53 | Emergency (ER) | payer MEDICARE, OTHER, SELFPAY ==
[2018-08-11 16:53] VITALS: BP 143/72; PULSE 91; RESP 15; TEMP 35.6; O2SAT 95; BMI 23.6
[2018-08-11] MEDS: Lidocaine/Epi/Tetracaine 50 ML 1 APPLIC TOPICAL (17:35)
[2018-08-11] MEDS: Silver Nitrate (BKC) 1 EACH TOPICAL (17:35)
--- NOTE | 2018-08-11 17:38 | ED.DCSUM_ITS ---
- ER Visit Summary Date of Service: 08/11/18 Chief Complaint: Left index finger laceration History of Present Illness: The patient is a 72 F who went to sit down on a metal chair when her finger got caught causing laceration to the distal left index finger. Unknown last tetanus. She is on aspirin. Injury happened about 1.5 hours before examination. She states it is still bleeding. Physical Examination: Afebrile vital signs stable Left index finger volar fat pad demonstrates skin avulsion. The bone is well covered with fat. There is mild venous oozing. Neurovascular intact. There is no nail injury. Emergency Department Course and Treatment: The finger was digitally blocked using 1% lidocaine. A turnicot was applied. Local injection of a half CT of 1% lidocaine with epinephrine was performed. Then silver nitrate was used to cauterize a few venules. Turnicot was removed and bleeding was almost 0. Surgicel was applied over the wound and then a finger from a rubber glove applied. Then tube gauze was applied. Tetanus was updated with Adacel. Patient was advised to leave the dressing on for 2 days and then remove and dressed with antibiotic ointment and dressing. Return if worsening or concerns. Impression: 1. Left index finger distal skin amputation 2. Tetanus update This note was generated with [employer] dictation software. It may contain incorrect words, spelling, and punctuation that were not noted in review of the chart prior to signing ED Disposition - Plan for ED Patient: Disposition: Home or Assisted Living Instructions: Skin Avulsion Referrals: Chico Bejarano DO [Primary Care Provider] - 3-5 Days if not improving
[2018-08-11] MEDS: Diphth,Pertuss(Acell),Tet Vac 0.5 ML Vial IM (17:51)
== END 2018-08-11 17:56 | disposition home or self-care (01) ==
PROVIDERS: Emergency Provider Emergency Medicine; Family Provider Student in an Organized Health Care Education/Training Program; PCP Student in an Organized Health Care Education/Training Program
DX: S61.211A Laceration without foreign body of left index finger without damage to nail, initial encounter (principal); W23.0XXA Caught, crushed, jammed, or pinched between moving objects, initial encounter; Y93.9 Activity, unspecified; Y92.89 Other specified places as the place of occurrence of the external cause; Y99.8 Other external cause status; J44.9 Chronic obstructive pulmonary disease, unspecified; E11.9 Type 2 diabetes mellitus without complications; I10 Essential (primary) hypertension; I73.9 Peripheral vascular disease, unspecified; Z79.82 Long term (current) use of aspirin; Z23 Encounter for immunization
CPT/HCPCS: 90471; 90715; 99283

== ENCOUNTER 2018-08-21 16:39 | Emergency (ER) | payer MEDICARE, OTHER, SELFPAY ==
[2018-08-21 16:41] VITALS: BP 149/60; PULSE 114; RESP 22; TEMP 36.3; O2SAT 91; BMI 23.6
[2018-08-21 17:15] LABS: Bacteria 0 SEEN /hpf (None Seen); Mucous, Urine 0 SEEN /hpf (<or=2+)
[2018-08-21 17:19] LABS: Color, Urine Yellow (Yellow); Glucose, Dipstick Normal (Normal); Ketone-Dipstick Negative (Negative); Leukocyte Esterase-Dipstick 100 /ul (Negative); Nitrite-Dipstick Negative (Negative); Occult Blood-Urine 150 /ul (Negative); Protein-Dipstick Negative (Negative); Specific Gravity, Urine 1.015 (1.002-1.030); Urine Bilirubin Dipstick Negative (Negative); Urine Clarity Sl. Cloudy (Clear); Urine Urobilinogen Normal (Normal); Urine pH 6.5 (5.0 - 8.0)
[2018-08-21 17:23] LABS: Red Blood Cells-Urine 5-10 SEEN /hpf (0-5); Squamous Epithelial Cells - UA 0-5 SEEN /hpf (5-10); Transitional Epithelial - Ur 0-5 SEEN /hpf (0-5); White Blood Cells 5-10 SEEN /hpf (0-5)
--- NOTE | 2018-08-21 17:25 | ED.DCSUM_ITS ---
History of Present Illness Informant: Patient Onset: Today Context: Sudden Onset Timing: Continuous Quality: Mild amount of bleeding Location: Vaginal Current Severity: Mild Maximum Severity: Mild Worsened by: Nothing Relieved by: Nothing Associated Symptoms: Denies Narrative: 72-year-old female presents to the emergency department with vaginal bleeding. The patient states that just prior to arrival she was in the shower noticed a very small amount of vaginal bleeding that she would describe is consistent with spotting. She then went to use the bathroom, urinating, and when she wiped noticed more blood and is now here for evaluation. Patient has not had any bl eeding since menopause. She is not on blood thinners and has no other symptoms of bleeding. She has not been lightheaded or dizzy. She denies hematuria. She is not having any abdominal or pelvic pain or cramping. Does have a history of uterine fibroids remotely. Prior similar symptoms: No Recent Illness/Hospitalization: No <Josh Le - Last Filed: 08/21/18 17:58> <Nuno Shine - Last Filed: 08/21/18 18:02> Chief Complaint: Vag Bleeding Past Medical History Prior records reviewed: Yes Past Medical History: - - COPD Surgical History: no surgical history Smoking Status: Former smoker Alcohol: None Drugs: None - Family History Maternal Family History: Family History (Last Reviewed 06/22/18 @ 08:57 by Marilia Hurley) Mother Heart disease Family History: Reports: Heart Disease Paternal Family History: Family History (Last Reviewed 06/22/18 @ 08:57 by Marilia Hurley) Mother Heart disease Family History: Reports: - - Father with black lung in addition to history of Alzheimer's disease. Sibling Family History: Family History (Last Reviewed 06/22/18 @ 08:57 by Marilia Hurley) Mother Heart disease Family History: Reports: Cancer, - - skin cancer <Josh Le - Last Filed: 08/21/18 17:58> - Family History Maternal Family History: Family History (Last Reviewed 06/22/18 @ 08:57 by Marilia Hurley) Mother Heart disease Paternal Family History: Family History (Last Reviewed 06/22/18 @ 08:57 by Marilia Hurley) Mother Heart disease Sibling Family History: Family History (Last Reviewed 06/22/18 @ 08:57 by Marilia Hurley) Mother Heart disease <Shine,Nuno - Last Filed: 08/21/18 18:02> - Allergies and Home Meds Allergies/Adverse Reactions: Allergies levofloxacin [From Levaquin] Allergy (Verified 08/21/18 16:41) Shortness of breath hydrocodone Adverse Reaction (Verified 08/21/18 16:41) Nausea Primary Care Physician: Eugenia Fabian MD [STAFF PHYSICIAN] - Chico Bejarano DO [Primary Care Provider] - Review of Systems All systems negative except as indicated Genitourinary: Reports: - - Vaginal bleeding <NgozikathyJosh - Last Filed: 08/21/18 17:58> Physical Exam Vital Signs/Narrative: Vital Signs Temp Pulse Resp BP Pulse Ox 08/21/18 16:41 97.3 F L 114 H 22 H 149/60 H 91 Inital Vital Signs reviewed: Yes General: Well nourished, Well developed, No Acute Distress Head: Normocephalic, Atraumatic Eyes: Perrl, EOMI ENT: Moist mucous membranes Neck: Supple, Nontender Cardiovascular: Regular rate, Regular rhythm Respiratory: No distress, CTA bilaterally, Chest nontender Abdomen: Soft, Nontender, Nondistended, Normal bowel sounds, No masses : - - Speculum exam was performed. The patient has pelvic organ prolapse li alvaro in Enterocele. There are no signs of bleeding. There is no active bleeding. There are no signs of infection. Patient did not have significant pain. This was easily reduced. External examination was normal. Back: Nontender Extremities: Nontender, No edema Skin: Normal color, No rash Neurological: Alert, Oriented x3 <NgozikathyJosh - Last Filed: 08/21/18 17:58> Vital Signs/Narrative: Vital Signs Temp Pulse Resp BP Pulse Ox 08/21/18 17:33 18 08/21/18 16:41 97.3 F L 114 H 22 H 149/60 H 91 <Shine,Nuno - Last Filed: 08/21/18 18:02> Diagnostic/Tx/Re-eval - Medical Decision Making I performed a speculum exam which shows pelvic organ prolapse. There are no signs of infection or bleeding. Patient is hemodynamically stable. Laboratory work-up is unremarkable. Urinalysis is negative. Patient was reassured. She has not had bleeding in the emergency department. We will refer her to [facility]. Return precautions given. She will be discharged home. <Josh Le - Last Filed: 08/21/18 17:58> - Medical Decision Making She presents because of blood noted after showering. She states the blood is from the vagina. She is never had an abnormal Pap smear. She denies fever or chills or night sweats. She denies weight loss. She has no other complaints. Vital signs noted. Lungs are clear to auscultation. Heart is regular. Abdomen is soft nontender. Pelvic exam performed by Josh Le. The pelvic exam was not repeated. <Nuno Shine - Last Filed: 08/21/18 18:02> ED Disposition <Josh Le - Last Filed: 08/21/18 17:58> <Nuno Shine - Last Filed: 08/21/18 18:02> - Plan for ED Patient: Disposition: Home or Assisted Living Diagnosis: Vaginal enterocele Instructions: What Is Pelvic Organ Prolapse? Referrals: Chico Bejarano DO [Primary Care Provider] - Eugenia Fabian MD [STAFF PHYSICIAN] -
[2018-08-21 17:26] LABS: Absolute Lymphocyte Count 2.02 X10^3/ul (0.83-4.51); Absolute Neutrophil Count 6.3 X10^3/uL (2.0-7.7); Basophil# 0.03 X10^3/uL; Basophil% 0.3 % (0-1); Eosinophil# 0.16 X10^3/uL; Eosinophils% 1.7 % (0-5); Hematocrit 35.9 % (37-47); Hemoglobin 10.9 g/dl (12.0-15.0); Lymphocyte # 2.02 X10^3/ul (4.0); Lymphocyte % 21.5 % (19-41); Mean Corp Hgb Conc 30.4 g/gl (32-36); Mean Corpuscular Hgb 24.6 pg (27.0-32.0); Mean Platelet Vol. 10.2 fl (6.2-12.0); Monocyte# 0.91 X10^3/uL; Monocyte% 9.7 % (0-10); Neutrophil # 6.27 X10^3/uL (2.7-7.7); Neutrophil % 66.6 % (47-70); Platelet Count 348 K/mm3 (150-450); RBC Distribution Width CV 15.8 % (11.6-14.6); RBC Distribution Width SD 47.1 fl (35.1-43.9); Red Blood Count 4.43 M/mm3 (4.2-5.4); White Blood Count 9.4 K/mm3 (4.4-11.0)
[2018-08-21 17:27] LABS: POSITIVE COUNT NO; POSITIVE DIFFERENTIAL NO; POSITIVE MORPHOLOGY NO
[2018-08-21 17:33] VITALS: RESP 18
[2018-08-21 17:39] LABS: Anion Gap 6 (5-15); BUN 21 mg/dL (7-18); BUN/Creat Ratio 20.6 RATIO (10-20); Calcium,Total 9.1 mg/dL (8.5-10.1); Chloride 105 mmol/L (98-107); Creatinine, Serum 1.02 mg/dL (0.55-1.02); EST Glomerular Filtration Rate 57 mL/min (>60); Est Glom Filt Rate - Afr Amer 69 mL/min (>60); Estimated Creatinine Clearance 36.86 ml/min; Glucose 59 mg/dL (74-106); Potassium 3.6 mmol/L (3.5-5.1); Sodium Level 140 mmol/L (136-145)
[2018-08-21 18:11] VITALS: RESP 18
== END 2018-08-21 18:12 | disposition home or self-care (01) ==
PROVIDERS: Emergency Provider Physician Assistant Medical; Family Provider Student in an Organized Health Care Education/Training Program; PCP Student in an Organized Health Care Education/Training Program
DX: N81.5 Vaginal enterocele (principal); J44.9 Chronic obstructive pulmonary disease, unspecified; Z87.891 Personal history of nicotine dependence
CPT/HCPCS: 80048; 81001; 85025; 99283

== ENCOUNTER → 2018-09-14 17:00 | Outpatient (CLI) | payer MEDICARE, OTHER, SELFPAY ==
[2018-08-21 16:41] VITALS: BMI 23.6
--- NOTE | 2018-09-14 17:00 | EMB_PTH ---
PATIENT: HARIS NEWMAN LOC: JJ U#:[id number] AGE/SX: 79/F ROOM: RE09/14/[address]: Dr. Sandra Willett MD : 1945 BED: DIS: SPEC #: [id number] RECD: 09/14/18 17:29 STATUS: STEPHANIE ZACH #: [id number] EVA: 09/14/18 17:[address]: Sandra Silva DEPT: SURGICAL PATHOLOGY RECD BY: Dustin Mendoza ENTERED: 09/15/18 08:08 SP TYPE: ENDOM BX/C BERTIN DR: Dr. Chico Bejarano DO Tissues: Endometrium, NOS Procedures: Surgery Specimen Level IV HEADER OPERATION: Endometrial biopsy PRE-OP DIAGNOSIS: Postmenopausal bleeding TISSUE SUBMITTED: Endometrial biopsy MICROSCOPIC DIAGNOSIS Endometrial biopsy: Strips of benign endometrial epithelium, consistent with atrophic endometrium. Denuded benign endocervical epithelial cells and mucous. SJ:rock 09/16/18 MICROSCOPIC DESCRIPTION Slides are reviewed. GROSS DESCRIPTION Received is one container labeled with the patient's name and not further designated. The specimen consists of multiple irregular fragments of thapa mucoid tissue that in aggregate measure 1.5 x 1.5 x 0.1 cm. The specimen is totally submitted in one cassette. / SJ:rock 09/15/18 TC: CPT: 45433
== END ==
PROVIDERS: Family Provider Student in an Organized Health Care Education/Training Program; PCP Student in an Organized Health Care Education/Training Program; Referring Provider Obstetrics & Gynecology; Visit Provider Obstetrics & Gynecology
DX: N95.0 Postmenopausal bleeding (principal)
CPT/HCPCS: 88305

== ENCOUNTER 2018-11-30 19:18 | Emergency (ER) | payer MEDICARE, OTHER, SELFPAY ==
[2018-09-27 08:24] VITALS: BMI 23.8
[2018-11-30 19:19] VITALS: BP 138/74; PULSE 98; RESP 16; RESP 19; TEMP 36.4; O2SAT 93; BMI 23.0
--- NOTE | 2018-11-30 19:22 | RAD_ITS ---
STUDY: X-RAY - LEFT ANKLE REASON FOR EXAM: Female, 73 years old. Pain TECHNIQUE: 3 view(s) of the ankle. COMPARISON: None. FINDINGS: There is no evidence of fracture or dislocation. Hypertrophic changes are present at the Achilles tendon insertion. There are no radiodense foreign bodies. Soft tissue swelling is present in the posterior foot. RAD/Ankle min 3 Views IMPRESSION: No fracture or dislocation. Hypertrophic changes at the Achilles tendon insertion. Soft tissue swelling in the posterior foot. Electronically Signed: Fidencio Kahn, at 19:38 EDT Tel , Service support ,
--- NOTE | 2018-11-30 20:27 | ED.VIS.GEN ---
History of Present Illness Chief Complaint: Lower Extremity Injury Detail of Chief Complaint: Left ankle injury Informant: Patient Onset: Days Context: Gradual Onset Current Severity: Mild Maximum Severity: Moderate Narrative: Patient presents with left ankle injury. She states she rolled her left ankle 2 days ago. Yesterday was not too painful, but today she has had increased pain. She points just anterior to the lateral malleolus. Nursing staff also noted that she was complaining of increased shortness of breath with a history of COPD. When I asked her about this she stated her breathing was at her baseline. Past Medical History - Allergies and Home Meds Allergies/Adverse Reactions: Allergies levofloxacin [From Levaquin] Allergy (Verified 11/30/18 19:19) Shortness of breath hydrocodone Adverse Reaction (Verified 11/30/18 19:19) Nausea Primary Care Physician: Chico Bejarano DO [Primary Care Provider] - Prior records reviewed: Yes Past Medical History: - - Reviewed Surgical History: no surgical history Smoking Status: Current every day smoker - Family History Maternal Family History: Family History (Last Reviewed 09/27/18 @ 08:35 by Carlene Delgadillo) Mother Heart disease Sister Cancer Family History: Reports: Heart Disease Paternal Family History: Family History (Last Reviewed 09/27/18 @ 08:35 by Carlene Delgadillo) Mother Heart disease Sister Cancer Family History: Reports: - - Father with black lung in addition to history of Alzheimer's disease. Sibling Family History: Family History (Last Reviewed 09/27/18 @ 08:35 by Carlene Delgadillo) Mother Heart disease Sister Cancer Family History: Reports: Cancer, - - skin cancer Review of Systems General: Denies: Chills, Fever Eyes: Denies: Visual changes - bilaterally ENT: Denies: Bilateral ear pain Cardiovascular: Denies: Chest pain Respiratory: Denies: Dyspnea Gastrointestinal: Denies: Abdominal pain Musculoskeletal: Reports: Extremity Pain Skin: Denies: Rash Neurological: Denies: Weakness, Parasthesia Psych: Denies: Depression Allergy: Denies: Uticaria Physical Exam Vital Signs/Narrative: Vital Signs Temp Pulse Resp BP Pulse Ox 11/30/18 19:19 97.5 F L 98 16 138/74 H 93 General: Well nourished, Well developed Head: Normocephalic ENT: Moist mucous membranes Cardiovascular: Regular rate, Regular rhythm Respiratory: No distress, CTA bilaterally Abdomen: Soft, Nontender Extremities: - - Focal tenderness palpation just anterior to the left lateral malleolus with tenderness along the tendon insertion site. She has changes consistent with psoriasis, but no sign of secondary infection. Strong distal pulses and normal sensation are noted. Neurological: Alert, Oriented x3 Psychological: Normal affect Diagnostic/Tx/Re-eval Impressions Ankle X-Ray 11/30/18 19:22 IMPRESSION: No fracture or dislocation. Hypertrophic changes at the Achilles tendon insertion. Soft tissue swelling in the posterior foot. Electronically Signed: Fidencio Criss, at 19:38 EDT Tel , Service support , 11/30/18 19:22 Ankle min 3 Views [RAD] Stat - Medical Decision Making X-ray results are discussed with the patient. She is having difficulty with weightbearing will be given a walking boot. She does not want crutches that she Sandro has trouble with her shoulders. She will be given a short course of steroids to help decrease inflammation. ED Disposition - Plan for ED Patient: Disposition: Home or Assisted Living Diagnosis: Ankle sprain Instructions: Sprain, Ankle, with X-Ray Prescriptions: Prednisone [Deltasone] 40 mg PO DAILY #10 tablet Referrals: Chico Bejarano DO [Primary Care Provider] - 1 Week if not improving
[2018-11-30] MEDS: predniSONE 20 MG Tablet 40 MG PO (21:01)
[2018-11-30 21:11] VITALS: BP 135/72; PULSE 78; RESP 16; O2SAT 97
== END 2018-11-30 21:12 | disposition home or self-care (01) ==
PROVIDERS: Emergency Provider Emergency Medicine; Family Provider Student in an Organized Health Care Education/Training Program; PCP Student in an Organized Health Care Education/Training Program
DX: S93.402A Sprain of unspecified ligament of left ankle, initial encounter (principal); X50.1XXA Overexertion from prolonged static or awkward postures, initial encounter; Y93.9 Activity, unspecified; Y92.89 Other specified places as the place of occurrence of the external cause; Y99.9 Unspecified external cause status; F17.200 Nicotine dependence, unspecified, uncomplicated; Z82.49 Family history of ischemic heart disease and other diseases of the circulatory system; Z88.1 Allergy status to other antibiotic agents; Z88.5 Allergy status to narcotic agent; J44.9 Chronic obstructive pulmonary disease, unspecified
CPT/HCPCS: 73610; 99283

== ENCOUNTER → 2019-04-18 17:41 | Outpatient (CLI) | payer MEDICARE, OTHER, SELFPAY ==
[2019-03-15 10:03] VITALS: BMI 23.0
--- NOTE | 2019-04-18 17:42 | CT_ITS ---
STUDY: LOW DOSE CT LUNG CANCER SCREENING REASON FOR EXAM: Female, 73 years old. PT STATED 20 YEAR 1/2 PPD SMOKER, COPD RADIATION DOSAGE (If Supplied By Facility): CTDIvol = ( 2.01 ) mGy, DLP = ( 64.69 ) mGycm TECHNIQUE: No contrast was administered. Low dose technique was utilized (average mAS-38 and kVp 120). 1.25 mm axial source images with a slice interval of 1.25-mm were reconstructed in lung windows. 2.5 mm axial source images with a slice interval of 2.5-mm were reconstructed in lung windows. 5.0 mm axial source images with a slice interval of 5.0-mm were reconstructed in soft tissue windows. Nodule measured using lung windows on PACS and/or independent workstation with automated measurement of minimum and maximum diameter. Nodule measurement reported as average diameter rounded to the nearest whole number. Growth is defined as an increase ins size of greater than 1.5 mm. COMPARISON: CT lung screening exam dated June 28, 2018 There is interval development of a 1.02 x 1.07 cm spiculated nodule in the lateral subpleural region of the left lower lobe within the costophrenic angle. There are subtle calcifications in this nodule which has attachment to the underlying pleura. Interval development of an elongated or 0.96 cm focus of nodularity and parenchymal scarring in the medial and inferior of the right middle lobe. A small irregular nodule a few centimeters from this focus in the lateral aspect of the right middle lobe measuring 6.6 mm. There is hyperinflation of the lungs consistent with chronic obstructive lung disease (COPD). Diffuse cystic emphysematous changes are present. There is no demonstrated pleural abnormality. Normal heart size and pericardium. Normal mediastinum. Normal hilar regions. Normal unenhanced pulmonary arteries. There is atherosclerotic calcification of the aortic arch with tortuosity and elongation of the aortic arch and descending thoracic aorta. There are multi-level degenerative changes of the thoracic spine. Limited evaluation of the upper abdomen due to no soft tissue algorithm obtained. There is no demonstrated significant abnormality of the visualized upper abdomen. CT/Low Dose CT Lung Screening IMPRESSION: 1. Newly developed spiculated nodule of the left lower lobe and elongated area of nodularity in spiculation in the right middle lobe are very concerning for development of malignant neoplasms. 2. Correlation with PET/CT in evaluation by artificial insemination technician is recommended. 3. Emphysema/COPD 4. Lung-RADS category 4X - Chest CT with or without contrast, PET/CT and/or tissue sampling can be obtained depending on the probability of malignancy and comorbidities. IMPORTANT NOTES FOR USE: ACR Lung-RADS Version 1.0 Assessment Categories Release Date: June 05, 2013 Category: Coded 0-4 bases on nodule(s) with highest degree of suspicion. Negative screen is defined as categories 1 and 2; a positive screen is defined as categories 3 and 4. Category 3 and 4A nodules that are unchanged on interval CT should be coded as category 2, and individuals returned to screening in 12 months. Category 4X: Category 3 or 4 nodules with additional imaging findings that increase the suspicion of lung cancer, such as spiculation, GGN that doubles in size in 1 year, enlarged lymph notes, etc. Category Modifiers: S (significant finding unrelated to lung cancer) and C (prior history of treated lung cancer) may be added to the 0-4 Lung-RADS Electronically Signed: Bill Bell MD at 14:39 EDT , Service support ,
== END ==
PROVIDERS: PCP Student in an Organized Health Care Education/Training Program; Referring Provider Internal Medicine Critical Care Medicine; Visit Provider Internal Medicine Critical Care Medicine
DX: Z12.2 Encounter for screening for malignant neoplasm of respiratory organs (principal); F17.210 Nicotine dependence, cigarettes, uncomplicated
CPT/HCPCS: G0297

== ENCOUNTER → 2019-04-24 13:51 | Outpatient (CLI) | payer MEDICARE, OTHER, SELFPAY ==
[2019-04-24 13:26] VITALS: BMI 23.0
[2019-04-24 14:08] LABS: Platelet Count 265 K/mm3 (150-450)
[2019-04-24 14:24] LABS: Prothrombin Time (Protime)PT. 12.8 SECONDS (11.7-14.9)
[2019-04-24 14:25] LABS: Partial Thromboplast Time 29.5 Seconds (24.1-36.2)
== END ==
PROVIDERS: PCP Student in an Organized Health Care Education/Training Program; Referring Provider Nurse Practitioner Acute Care; Visit Provider Nurse Practitioner Acute Care
DX: R91.8 Other nonspecific abnormal finding of lung field (principal); Z79.890 Hormone replacement therapy; R07.9 Chest pain, unspecified
CPT/HCPCS: 36415; 85049; 85610; 85730

== ENCOUNTER → 2019-05-02 08:03 | Outpatient (CLI) | payer MEDICARE, OTHER, SELFPAY ==
[2019-04-24 13:26] VITALS: BMI 23.0
[2019-05-02] VITALS (16 sets, daily range): BP systolic 102–155; BP diastolic 52–97; PULSE 68–78; RESP 11–19; TEMP 36.6; O2SAT 93–98; BMI 21.2
--- NOTE | 2019-05-02 | ASPIGT_PTH ---
PATIENT: HARIS NEWMAN LOC: [place] U#:[id number] AGE/SX: 79/F ROOM: RE05/02/[address]: DANIEL Mclaughlin : 1945 BED: DIS: SPEC #: [id number] RECD: 05/02/19 09:34 STATUS: STEPHANIE ZACH #: [id number] EVA: 05/02/19 00:[address]: Jaleesa Santa NP DEPT: SURGICAL PATHOLOGY RECD BY: Paola Carmichael ENTERED: 05/02/19 10:50 SP TYPE: ASP RAD OTHR DR: Dr. Chico Bejarano DO Tissues: Right lung, NOS Procedures: FNA Specimen Adequacy Special Stain Group II Surgery Specimen Level IV Imprint (control) HEADER OPERATION: CT-guided right lung biopsy PRE-OP DIAGNOSIS: Right lung nodule TISSUE SUBMITTED: Right lung nodule 20 gauge x5 cores MICROSCOPIC DIAGNOSIS Right lung nodule, CT-guided needle core biopsy: Amorphous proteinaceous material and blood. AM:rock 05/03/19 COMMENT The specimen is evaluated at the time of biopsy by Dr. Sims. Immediate Evaluation = Negative for malignant cells. MICROSCOPIC DESCRIPTION Slides are reviewed. GROSS DESCRIPTION Received in fixative is one container labeled with the patient's name and designated right lung nodule. The specimen consists of light thapa material aggregating to 0.1 x <0.1 x <0.1 cm. Seismograph Operator crush preps are prepared and remainder of tissue is totally submitted for cell block preparation. / SJ:rock 05/02/19 TC:5 CPT: 20840, 04199
--- NOTE | 2019-05-02 08:04 | CT_ITS ---
PROCEDURE: CT GUIDED CORE NEEDLE BIOPSY OF A right middle lobe LUNG LESION INDICATION: Female, 73 years old. RT LUNG BX PHYSICIAN: Dr. Tony Domínguez CONSENT: Written informed consent was obtained having explained the risks, benefits and alternatives in detail with the patient who accepted the risks and agreed to proceed. Laboratory review and clinical assessment was performed. CONSCIOUS SEDATION PROTOCOL: The Drugs used were: 1 mg Versed, IV., and 25 mcg Fentanyl, IV. The sedation time was: 9 minutes. Conscious sedation was started and 9:18 AM and terminated at 9:27 AM. The conscious sedation protocol was independently monitored. RADIATION DOSAGE (If Supplied By Facility): CTDIvol = ( 16.67 ) mGy, DLP = ( 696.98 ) mGycm Individualized dose optimization techniques were used for this CT. TECHNIQUE: The patient was placed in the supine position. A noncontrast CT was performed to localize the lesion in the right middle lobe anteriorly . The skin surface was prepped and draped in a sterile fashion. 1% lidocaine was used for local anesthesia. Using CT guidance, a 20-gauge coaxial biopsy device was advanced to the periphery of the lesion. A total of 5 core specimens were obtained. The specimens were placed in a formalin solution. A post procedure CT demonstrated no adverse sequelae or pneumothorax. The patient tolerated the procedure well without adverse event. A negative biopsy does not exclude malignancy. Further imaging or clinical followup based on patient condition and degree of clinical suspicion for malignancy. Suggest rebiopsy, if biopsy results do not match with clinical scenario. CT/Biopsy/Inj or Needle Placement IMPRESSION: 1. CT directed core needle biopsy of the right middle lobe using CT image guidance with image documentation as described. Pathology results are pending. 2. Conscious Sedation protocol utilized with independent monitoring. Electronically Signed: Kavin Jimenez, at 9:46 EDT , Service support ,
[2019-05-02] MEDS: Midazolam 2 MG/2 ML Syringe IV ×2 (09:18→09:44)
[2019-05-02] MEDS: fentaNYL 100 MCG/2 ML Ampul IV ×2 (09:20→09:45)
--- NOTE | 2019-05-02 09:30 | RAD_ITS ---
STUDY: X-RAY CHEST REASON FOR EXAM: Female, 73 years old. POST RT SIDE LUNG BX TECHNIQUE: AP inspiration and expiration views COMPARISON: Comparison is made with prior study dated July 08, 2013. FINDINGS: EKG electrodes are seen. On the immediate post right lung biopsy, there is a small right apical pneumothorax. A follow-up examination will be obtained. RAD/Chest Insp/Exp 2 View IMPRESSION: Small right apical pneumothorax on the immediate post right lung biopsy radiograph. Electronically Signed: Kavin Jimenez, at 11:18 EDT , Service support ,
--- NOTE | 2019-05-02 11:27 | RAD_ITS ---
STUDY: X-RAY CHEST REASON FOR EXAM: Female, 73 years old. 2 hour post lung biopsy TECHNIQUE: AP inspiration and expiration views COMPARISON: Comparison is made with prior examination done earlier in the day. FINDINGS: Stable small right apical pneumothorax. The patient is asymptomatic. RAD/Chest Insp/Exp 2 View IMPRESSION: Stable small right apical pneumothorax. Electronically Signed: Kavin Jimenez, at 11:41 EDT , Service support ,
--- NOTE | 2019-05-02 12:22 | NURSING ---
PT'S LUNG SOUNDS POSTERIORLY: RHONCHI AND EXPIRATORY WHEEZES THROUGHOUT.
--- NOTE | 2019-05-02 12:23 | NURSING ---
PT ADVISED TO NOT WEAR CPAP TONIGHT PER DR. PRO'S RECOMMENDATION. PT UNDERSTANDS SHE IS TO CALL [phone] IF SHE DEVELOPS SUDDEN ONSET OF CHEST PAIN OR SHORTNESS OF BREATH.
== END ==
PROVIDERS: PCP Student in an Organized Health Care Education/Training Program; Referring Provider Nurse Practitioner Acute Care; Visit Provider Nurse Practitioner Acute Care
DX: R91.1 Solitary pulmonary nodule (principal)
CPT/HCPCS: 32405; 71046; 77012; 88172; 88305; 88307; 88313; 99156; J7040; A4216

== ENCOUNTER → 2019-08-09 08:08 | Outpatient (CLI) | payer MEDICARE, OTHER, SELFPAY ==
[2019-05-10 08:20] VITALS: BMI 21.2
--- NOTE | 2019-08-09 08:13 | CT_ITS ---
STUDY: CTA CHEST REASON FOR EXAM: Female, 73 years old. LUNG MASS FOLLOW UP. BIOPSY NEG. RADIATION DOSAGE (If Supplied By Facility): CTDIvol = ( 7.84 ) mGy, DLP = ( 168.85 ) mGycm TECHNIQUE: The examination was performed with the intravenous administration of IV 100 ML ISOVUE 370. Post-processing of the angiographic images was performed, with multiplanar reformation and 3D reconstruction. Individualized dose optimization techniques were used for this CT. COMPARISON: Comparison is made with prior study dated November 01, 2016. FINDINGS: Normal enhancement of the main pulmonary artery and right and left pulmonary arteries. Normal enhancement of the bilateral peripheral pulmonary arteries. There is no demonstrated pulmonary embolism. Normal thoracic aorta and visualized great vessels. There is no demonstrated aortic dissection. Normal heart and pericardium. Normal mediastinum. Normal hilar regions. Normal visualized trachea and bronchi. The lungs are well expanded. The previously seen reticular nodular pattern at the lung bases has cleared. There is evidence of a mild degree of emphysematous changes with mild degree of bronchiectasis in the lower lobes. Normal pleura. Normal chest wall structures. There are degenerative changes of thoracic spine. Normal visualized upper abdomen. CT/CTA Chest W/WO Contrast IMPRESSION: Mild degree of residual bronchiectasis in the lower lobes superimposed on mild scarring. Electronically Signed: Kavin Jimenez, at 9:59 EDT , Service support ,
[2019-08-09 09:46] LABS: CREATININE FINGERSTICK 0.8 mg/dL (0.55-1.02); EGFR FINGERSTICK > 60.0000 mL/min (>60)
== END ==
PROVIDERS: PCP Student in an Organized Health Care Education/Training Program; Referring Provider Nurse Practitioner Acute Care; Visit Provider Nurse Practitioner Acute Care
DX: R91.8 Other nonspecific abnormal finding of lung field (principal)
CPT/HCPCS: 71275; Q9967

== ENCOUNTER → 2020-03-25 14:01 | Outpatient (CLI) | payer MEDICARE, OTHER, SELFPAY ==
[2019-11-22 07:49] VITALS: BMI 22.5
--- NOTE | 2020-03-25 14:05 | CT_ITS ---
STUDY: CT CHEST WITHOUT CONTRAST REASON FOR EXAM: Female, 74 years old. 3 MONTH LUNG NODULE FOLLOW UP, SOB W/ EXERTION RADIATION DOSAGE (If Supplied By Facility): CTDIvol = ( 6.86 ) mGy, DLP = ( 212.16 ) mGycm TECHNIQUE: Transaxial imaging was performed without the administration of intravenous contrast material. Multiplanar coronal and sagittal images were reformatted. Individualized dose optimization techniques were used for this CT. COMPARISON: Comparison is made with prior study dated 08/09/2019. FINDINGS: Small benign-appearing bilateral axillary lymph nodes. Stable focal linear scarring in the posterior aspect of the right lung apex. Minimal residual scarring is seen in the lateral aspect of the left lower lobe as seen on axial image #168. The previously seen nodular density has decreased in size at that site. There is no demonstrated pleural abnormality. There are calcifications of the coronary arteries. Normal mediastinum. Normal hilar regions. Normal unenhanced pulmonary arteries. There is atherosclerotic calcification of the aortic arch . There are multi-level degenerative changes of the thoracic spine. There is no demonstrated abnormality of the visualized upper abdomen. CT/Chest without Contrast IMPRESSION: Minimal residual scarring at the right lung apex as well as in the lateral aspect of the left lower lobe. Electronically Signed: Kavin Jimenez MD at 15:13 EST , Service support ,
== END ==
PROVIDERS: PCP Student in an Organized Health Care Education/Training Program; Referring Provider Internal Medicine Critical Care Medicine; Visit Provider Internal Medicine Critical Care Medicine
DX: R91.1 Solitary pulmonary nodule (principal)
CPT/HCPCS: 71250

== ENCOUNTER 2020-04-29 10:50 | Inpatient (IN) | payer MEDICARE, OTHER, SELFPAY ==
[2020-03-27 08:41] VITALS: BMI 22.6
[2020-04-29] VITALS (18 sets, daily range): BP systolic 90–111; BP diastolic 45–80; PULSE 66–90; RESP 15–18; TEMP 36.4–36.7; O2SAT 92–96; BMI 22.8; BMI 23.6
--- NOTE | 2020-04-29 11:06 | EKG12_ITS ---
Test Reason : AM EKG Blood Pressure : / mmHG Vent. Rate : 074 BPM Atrial Rate : 074 BPM P-R Int : 148 ms QRS Dur : 114 ms QT Int : 436 ms P-R-T Axes : 088 -15 123 degrees QTc Int : 483 ms Normal sinus rhythm Incomplete left bundle branch block ST & T wave abnormality, consider anterolateral ischemia Prolonged QT Abnormal ECG When compared with ECG of 30-APR-2020 23:31, MANUAL COMPARISON REQUIRED, DATA IS UNCONFIRMED Confirmed by MUKUND JACOBSON, JOHN ([id number]), copy editor DARRYN DIAL ([id number]) on 05/01/2020 1:52:48 PM Referred By: INES Confirmed By:JOHN DUVAL MD
--- NOTE | 2020-04-29 11:14 | ED.DCSUM_ITS ---
- ER Visit Summary Date of Service: 04/29/20 Chief Complaint: Chest pain History of Present Illness: The patient is a [address] Bejarano. She reports that she has had heartburn intermittently for the past week. When asked to describe this she reports that she burning substernal pain with radiati on up into her neck last approximately 10 minutes at a time. Pain is 10 out of 10 at worst and 3 out of 10 currently. It is not worsened by exertion or movement. She does report that it is worsened by spicy food. It is relieved by sitting up in bed with pillows. She denies any associated nausea, vomiting, diaphoresis, shortness of breath. Patient had a stress test in approximately 2018. She is never had a heart catheterization. She has tobacco use, family history, and diabetes as risk factors for coronary artery disease. Physical Examination: Vitals: Stable. Afebrile. General: Well-nourished and well-developed. Head: Normocephalic atraumatic. Neck: Supple, no lymphadenopathy. No JVD. Nontender. Cardiovascular: Regular rate and rhythm. No murmurs. Respiratory: No respiratory distress. Clear to auscultation bilaterally. Abdominal: Soft, nontender, nondistended, normal bowel sounds. No guarding, rebound, or peritoneal signs. Back: Nontender. Extremities: Nontender, no edema. Skin: Normal color, no rash. Neurologic: Alert and oriented ?3. Cranial nerves II through XII are intact. Normal strength and sensation. Psych: Normal affect. Test Results: EKG is sinus at 78. She has ST depression in leads II and aVF as well as leads V4 to V6. There are T wave inversions in leads I and aVL. These are all new finding since April 2018. Repeat EKG is unchanged. CBC shows stable neutrophils 72, 1 sets 15, monocytes of 12. LFTs show an AST of 83. Lipase 51. Troponin is 10.7. Chem-7 shows a BUN of 19. Clinical Impression(s) from Imaging Studies Chest X-Ray 04/29/20 11:25 IMPRESSION: No acute abnormality is seen. Electronically Signed: Kavin Jimenez MD at 11:55 EDT , Service support , Emergency Department Course and Treatment: Patient had an IV placed. She is given morphine and Zofran IV. She was given aspirin p.o. patient complained of increasing nausea and her EKG was repeated. It continues to show the ST depression. There is no STEMI. Treatment Plan: Patient was discussed with Dr. Jean. At this time he does not want her given heparin. However she was given Brilinta and will be taken to the Vascular Surgery Physician from the emergency department. Patient will then be admitted to the hospital for further evaluation and treatment. Disposition: Admitted in serious condition. Impression: 1. Non-ST elevation MS. 2. Critical care time 33 minutes. This note was generated with [employer] dictation software. It may contain incorrect words, spelling, and punctuation that were not noted in review of the chart prior to signing ED Disposition - Plan for ED Patient: Referrals: Chico Bejarano DO [Primary Care Provider] -
[2020-04-29] MEDS: Aspirin 81 MG TAB.CHEW 324 MG PO (11:21)
[2020-04-29] MEDS: Morphine 4 MG/ML Syringe IV (11:23)
[2020-04-29] MEDS: Ondansetron 4 MG/2 ML Vial IV ×2 (11:24→12:05)
[2020-04-29] MEDS: 0.9% Normal Saline 1,000 ML 150 ML IV ×3 (11:25→23:52)
--- NOTE | 2020-04-29 11:25 | RAD_ITS ---
STUDY: X-RAY CHEST REASON FOR EXAM: Female, 74 years old. Chest pain TECHNIQUE: Single AP portable view of the chest. COMPARISON: Comparison is made with prior study dated 05/02/2019. FINDINGS: EKG electrodes are seen. Hyperinflation. Minimal stable increased markings at the lung bases suggestive of scarring. There is no demonstrated pleural abnormality. Normal size heart. Normal mediastinum and evelyn. Normal visualized pulmonary arteries. There is atherosclerotic calcification of the aortic arch with tortuosity. There are diffuse degenerative changes of the visualized thoracic spine. Normal visualized ribs, clavicles, and shoulders. There is no demonstrated abnormality of the visualized soft tissue structures of the upper abdomen. RAD/Chest 1 View (Portable) IMPRESSION: No acute abnormality is seen. Electronically Signed: Kavin Jimenez MD at 11:55 EDT , Service support ,
[2020-04-29 11:33] LABS: Absolute Lymphocyte Count 1.54 X10^3/uL (0.83-4.51); Absolute Neutrophil Count 7.3 X10^3/uL (2.0-7.7); Basophil# 0.05 X10^3/uL; Basophil% 0.5 % (0-1); Eosinophil# 0.06 X10^3/uL; Eosinophils% 0.6 % (0-5); Hematocrit 45.5 % (37-47); Hemoglobin 14.6 g/dL (12.0-15.0); Lymphocyte # 1.54 X10^3/ul (4.0); Lymphocyte % 15.1 % (19-41); Mean Corp Hgb Conc 32.1 g/dL (32-36); Mean Corpuscular Hgb 30.7 pg (27.0-32.0); Mean Corpuscular Volume 95.6 fL (81-99); Mean Platelet Vol. 11.5 fl (6.2-12.0); Monocyte# 1.17 X10^3/uL; Monocyte% 11.5 % (0-10); NRBC Flagged by Analyzer 0 % (0-5); Neutrophil # 7.33 X10^3/uL (2.7-7.7); Platelet Count 273 K/mm3 (150-450); RBC Distribution Width CV 13.5 % (11.6-14.6); RBC Distribution Width SD 47.7 fl (35.1-43.9); Red Blood Count 4.76 M/mm3 (4.2-5.4); White Blood Count 10.2 K/mm3 (4.4-11.0)
--- NOTE | 2020-04-29 11:42 | EKG12_ITS ---
Test Reason : REPEAT Blood Pressure : / mmHG Vent. Rate : 066 BPM Atrial Rate : 066 BPM P-R Int : 142 ms QRS Dur : 100 ms QT Int : 432 ms P-R-T Axes : 078 008 128 degrees QTc Int : 452 ms Normal sinus rhythm ST & T wave abnormality, consider lateral ischemia Abnormal ECG Confirmed by MARQUES JACOBSON, OLAF ([id number]), content editor ARETHA HERRERA ([id number]) on 05/02/2020 12:26:12 PM Referred By: DEJUAN Confirmed By:KATTY MOHAN MD
[2020-04-29 11:50] LABS: AST(SGOT) 83 U/L (15-37); Alanine Aminotransfer ALT/SGPT 37 U/L (13-56); Albumin, Serum 3.5 g/dL (3.2-5.0); Alkaline Phosphatase 69 U/L (45-117); Bilirubin, Direct 0.15 mg/dL (0.00-0.30); Globulin 3.4 g/dL (2.2-4.2); Protein, Total 6.9 g/dL (6.4-8.2)
[2020-04-29] MEDS: TICAGRELOR 90 MG TABLET 180 MG PO (12:05)
[2020-04-29 12:11] LABS: Anion Gap 4 (5-15); BUN 19 mg/dL (7-18); BUN/Creat Ratio 20.8 RATIO (10-20); Calcium,Total 9.8 mg/dL (8.5-10.1); Chloride 106 mmol/L (98-107); Creatinine, Serum 0.91 mg/dL (0.55-1.02); EST Glomerular Filtration Rate 64 mL/min (>60); Est Glom Filt Rate - Afr Amer 78 mL/min (>60); Estimated Creatinine Clearance 40.14 ml/min; Glucose 84 mg/dL (74-106); Lipase 51 U/L (73-393); Potassium 4.4 mmol/L (3.5-5.1); Sodium Level 142 mmol/L (136-145)
--- NOTE | 2020-04-29 12:11 | ED.RN ---
lab called critical troponin of 10.7. dr whiting
--- NOTE | 2020-04-29 12:58 | PCM.HP.STD ---
Problem List (1) NSTEMI (non-ST elevated myocardial infarction) Status: Acute (2) Lung mass Status: Resolved (3) Arthritis of shoulder Status: Chronic (4) Nicotine dependence, cigarettes, uncomplicated Status: Chronic (5) Hx of endarterectomy Status: Resolved Comment: Right Femoral- 05/02/18 (6) Chronic respiratory failure with hypoxia Status: Chronic (7) COPD exacerbation Status: Chronic (8) Chest pain Status: Acute (9) PAD (peripheral artery disease) Status: Chronic (10) Ischemic foot Status: Resolved (11) Carotid stenosis, bilateral Status: Chronic (12) Stage 3 severe COPD by GOLD classification Status: Chronic Comment: FEV1 49% of predicted (13) Tobacco abuse Status: Chronic (14) Cough Status: Chronic (15) Shortness of breath Status: Chronic (16) Nocturnal hypoxia Status: Chronic (17) Stage 3 severe COPD by GOLD classification Status: Chronic (18) Chronic respiratory failure with hypoxia Status: Chronic (19) COPD (chronic obstructive pulmonary disease) Status: Chronic Qualifiers: (20) HTN (hypertension) Status: Deleted Qualifiers: (21) Diabetes Status: Chronic (22) Psoriasis Status: Chronic (23) Hypoxia Status: Chronic History of Present Illness Date of Admission: 04/29/20 Ms Licona is a 74 year old WF past medical history of lateral carotid stenosis, stage III COPD current tobacco abuse, diabetes-2, hypertension, chronic cough, diabetic neuropathy, depression, and hyperlipidemia who presented to the emergency department [facility] on 04/29/2020 complaining of chest pain that has been going on for approximately 1 week. She reported that the pain was burning and substernal in nature and radiated into her neck. When it occurs it lasts for approximately 10 minutes at a time. She reported her pain to be 3 out of 10 at best and 10 out of 10 at worst. She states that there is no worsening with exertion but does report an increase in symptoms when she eats spicy food. She denies any associated nausea vomiting diaphoresis or shortness of breath. She does state that it she feels it is relieved when she sits up in bed with pillows. She currently is using tobacco. Vital signs done in the emergency department show a normal temperature, normal heart rate, respiration rate was 16-18 on room air with an oxygen saturation of 96%. She is normotensive. Her CBC was overall unimpressive. Her BMP shows a mildly elevated BUN at 19 with a creatinine of 0.91. Her AST was mildly elevated 83 but her troponin was noted to be 10.7. Her EKG showed normal sinus rhythm with a heart rate of [address] depression in lead II. aVF, and V4 through V6. Her chest x-ray was negative for any acute issues. Urgency department she was given morphine, Zofran, full dose aspirin and the case was discussed with Dr. Jean from cardiology. He did not want heparin given at that time, but he did want Brilinta dose and the plan was to take her emergently to the [facility]. Past Medical History Past Medical History (Chronic Problems): Chronic Problems (Last Reviewed 04/29/20 @ 15:[address] Trina Tran DO) Essential (primary) hypertension (Chronic) Nonobstructive atherosclerosis of coronary artery (Chronic) Arthritis of shoulder (Chronic) Nicotine dependence, cigarettes, uncomplicated (Chronic) Chronic respiratory failure with hypoxia (Chronic) COPD exacerbation (Chronic) PAD (peripheral artery disease) (Chronic) Carotid stenosis, bilateral (Chronic) Stage 3 severe COPD by GOLD classification (Chronic) FEV1 49% of predicted Tobacco abuse (Chronic) Cough (Chronic) Shortness of breath (Chronic) Nocturnal hypoxia (Chronic) Stage 3 severe COPD by GOLD classification (Chronic) Chronic respiratory failure with hypoxia (Chronic) COPD (chronic obstructive pulmonary disease) (Chronic) Diabetes (Chronic) Psoriasis (Chronic) Hypoxia (Chronic) Medical History: Medical History (Last Reviewed 04/29/20 @ 15:[address] Trina Tran DO) Essential (primary) hypertension (Chronic) I10 Nonobstructive atherosclerosis of coronary artery (Chronic) I25.10 Non-ischemic cardiomyopathy (Acute) I42.8 NSTEMI (non-ST elevated myocardial infarction) (Acute) Onset Date: 04/29/20 I21.4 Arthritis of shoulder (Chronic) M19.019 Nicotine dependence, cigarettes, uncomplicated (Chronic) F17.210 Chronic respiratory failure with hypoxia (Chronic) J96.11 COPD exacerbation (Chronic) J44.1 Chest pain (Acute) R07.9 PAD (peripheral artery disease) (Chronic) I73.9 Carotid stenosis, bilateral (Chronic) I65.23 Stage 3 severe COPD by GOLD classification (Chronic) J44.9 FEV1 49% of predicted Tobacco abuse (Chronic) Z72.0 Cough (Chronic) R05 Shortness of breath (Chronic) R06.02 Nocturnal hypoxia (Chronic) G47.34 Stage 3 severe COPD by GOLD classification (Chronic) J44.9 Chronic respiratory failure with hypoxia (Chronic) J96.11 COPD (chronic obstructive pulmonary disease) (Chronic) J44.9 Diabetes (Chronic) E11.9 Psoriasis (Chronic) L40.9 Hypoxia (Chronic) R09.02 Allergies levofloxacin [From Levaquin] Allergy (Verified 04/29/20 11:00) Shortness of breath hydrocodone Adverse Reaction (Verified 04/29/20 11:00) Nausea Home Medications: Ambulatory Orders Medication Instructions Recorded Benazepril/Hydrochlorothiazide 1 tab PO DAILY 09/04/16 [Benazepril-Hctz 10-12.5 mg Tab] Omeprazole 1 tab PO DAILY 09/04/16 Sertraline HCl [Zoloft] 50 mg PO DAILY 09/04/16 Ascorbic Acid [Vitamin C] 1 tab PO DAILY 11/01/16 Cranberry 1 tab PO DAILY 11/01/16 Ezetimibe [Zetia] 10 mg PO DAILY 11/01/16 Montelukast [Singulair] 10 mg PO DAILY 11/01/16 Ubidecarenone [Coenzyme Q-10] 1 tab PO DAILY 11/01/16 albuterol sulfate 90 mcg/actuation 2 puff INHALATION Q4H PRN g 01/20/17 aerosol inhaler guaifenesin 1,200 mg tablet, 1,200 mg PO Q12H PRN 11/23/17 extended release 12 hr Lyrica 25 mg PO BID 03/22/18 Meloxicam 15 mg PO DAILY 03/22/18 Albuterol Aerosols [Ventolin 2.5 mg INHALATION Q4H PRN PRN 04/25/18 Aerosols] buPROPion tablets [Wellbutrin 75 mg PO BID 04/25/18 tablets] glipiZIDE [Glucotrol] 10 mg PO QHS 04/25/18 amitriptyline 25 mg tablet 25 mg PO DAILY 06/22/18 fluticasone fur. 100 mcg-umeclid 1 inh INHALATION DAILY #1 device 03/27/20 62.5 mcg-vilant 25 mcg inhalat.powder Surgical History: Surgical History (Last Reviewed 04/29/20 @ 15:[address] 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 Trina Tran DO) Mother Heart disease Sister Cancer History Items: Heart Disease Paternal Family History: Family History (Last Reviewed 04/29/20 @ 15:[address] Trina Tran DO) Mother Heart disease Sister Cancer History Items: - - Father with black lung in addition to history of Alzheimer's disease. Sibling Family History: Family History (Last Reviewed 04/29/20 @ 15:[address] Trina Tran DO) Mother Heart disease Sister Cancer History Items: Cancer, - - skin cancer Review of Systems Constitutional: Denies: Anorexia, Chills, Fever, Night Sweats, Malaise, Weakness, Weight Change, Fatigue Eyes: Denies: Blurred vision, Cataracts, Conjunctivae Inflammation, Double vision, Drainage, Eyelid Inflammation, Pain, Redness, Vision Change HEENT: Denies: Difficulty Hearing, Difficulty Swallowing, Ear Pain, Eye Pain, Head Aches, Nasal bleeding, Nasal Congestion, Post Nasal Drip, Sinus Congestion, Sinus Drainage, Sore Throat, Visual Changes Cardiovascular: Reports: Chest Pain - Substernal. Denies: Edema, Heaviness, Light Headedness, Orthopnea, Palpitations, Paroxysmal Noc. Dyspnea, Syncope Respiratory: Denies: Cough, Hemoptysis, Pleuritic Pain, Shortness of Breath, Shortness of breath at rest, Shortness of breath upon exertion, Sputum production, Wheezing Gastrointestinal: Reports: Dyspepsia. Denies: Abdominal Pain, Constipation, Diarrhea, Hematemesis, Hematochezia, Nausea, Melena, Vomiting Genitourinary: Denies: Dysuria, Hematuria Musculoskeletal: Denies: Back Pain, Joint Pain, Joint stiffness, Joint swelling, Joint Tenderness, Muscle pain, Neck Pain Skin: Denies: Dryness, Jaundice, Lesions, Pruritis, Rash, Skin Changes, Wounds Neurological: Denies: Balance problems, Blurred vision, Double vision, Change in Speech, Slurred speech, Confusion, Difficulty swallowing, Focal weakness, Incoordination, Numbness, Tingling, Tremor, Seizures Psychiatric: Reports: Anxiety, Depression Endocrine: Denies: Change in Body Habitus, Heat/ Cold Intolerance, Polydipsia, Polyuria Hematologic/ Lymphatic: Denies: Adenopathy, Anemia, Easy Bruising, Easy Bleeding, Petechiae, Purpura VTE Information - Inpt Only VTE Present on Admission: No VTE Mechan Device Prophylaxis: None VTE Pharm Prophylaxis ordered?: Yes Patient Problems: Active and Suspected Problems (Last Reviewed 04/29/20 @ 15:[address] Trina Tran, DO) NSTEMI (non-ST elevated myocardial infarction) (Acute 04/29/20) Chest pain (Acute) - Physical Exam Vitals/I&O's: Vital Signs Temp Pulse Resp BP Pulse Ox 98.1 F 69 16 97/79 96 04/29/20 12:43 04/29/20 12:43 04/29/20 12:43 04/29/20 12:43 04/29/20 11:44 Oxygen Delivery Method Nasal Cannula Weight: 53 kg Body Mass Index (BMI) 22.8 Finger Stick Blood Glucose 119 General: Alert, Oriented x3, Cooperative, No apparent distress, Well developed, Well nourished, - - Older white female, sitting up in bed, nursing at bedside, patient appears comfortable currently no complaints HEENT: Atraumatic, PERRLA, EOMI, Normocephalic, EAC Clear Oral: Moist Mucosa, No Gingival or Mucosal Lesions/ Ulcerations, - - Mallampati 2, thrush noted, dentures in place Neck: Supple, No JVD, Negative Carotid Bruits, Negative Hepatojugular Reflux, No Nodes, Trachea Midline, Thyroid Normal Size and Texture Lungs: No rhonchi, No rales, Diminished, Wheezes - Few scattered Cardiovascular: Regular rate, Regular Rhythm, Normal S1, Normal S2, No murmurs, No Ectopic Activity, No rub noted, No Gallop Abdomen: Bowel Sounds Present, Soft, Non Tender, Non-Distended, No hernias noted Extremities: No clubbing, No cyanosis, No edema, Capillary Refill Less than 3 Seconds, Peripheral Pulses Normal Skin: No rashes, No breakdown Musculoskeletal: No Tenderness to Palpation of Joints or Extremities, No Muscle Wasting, Arthritic Changes Lymphatic: No Cervical, Supraclavicular, or Inguinal Adenopathy Neurological: Cranial nerves II-XII grossly intact, Neuro grossly intact, Muscle tone normal, Coordination normal Psych/Mental Status: Normal Affect, Appropriate Laboratory Results 04/29/20 11:20: Total Bilirubin 0.70, Direct Bilirubin 0.15, AST 83 H, ALT 37, Alkaline Phosphatase 69, Total Protein 6.9, Albumin 3.5, Globulin 3.4 04/29/20 11:20: WBC 10.2, RBC 4.76, Hgb 14.6, Hct 45.5, MCV 95.6, MCH 30.7, MCHC 32.1, RDW Std Deviation 47.7 H, RDW Coeff of [place] 13.5, Plt Count 273, MPV 11.5, Immature Gran % (Auto) 0.300, Neut % (Auto) 72.0 H, Lymph % (Auto) 15.1 L, [place] % (Auto) 11.5 H, Eos % (Auto) 0.6, Baso % (Auto) 0.5, Absolute Neuts (auto) 7.3, Absolute Lymphs (auto) 1.54, Nucleated RBC % 0 04/29/20 11:20: Sodium 142, Potassium 4.4, Chloride 106, Carbon Dioxide 32.0, Anion Gap 4 L, BUN 19 H, Creatinine 0.91, Estim Creat Clear Calc 40.14, Est GFR (MDRD) Af Amer 78, Est GFR (MDRD) Non-Af 64, BUN/Creatinine Ratio 20.8 H, Glucose 84, Calcium 9.8, Troponin I 10.700 H*, Lipase 51 L Assessment/Plan All Active Problems (Last Reviewed 04/29/20 @ 15:[address] Trina Tran, DO) Non-ischemic cardiomyopathy (Acute) NSTEMI (non-ST elevated myocardial infarction) (Acute 04/29/20) Hx of endarterectomy (Resolved) Chest pain (Acute) Ischemic foot (Resolved) Lung mass (Resolved) NSTEMI -Patient taken urgently to the [facility] from the emergency department -Continue Brilinta -Continue daily baby aspirin -Start Lipitor 80 mg nightly -Continue home Zetia -Check hemoglobin A1c -Check lipid profile -Start Coreg 3.125 -Continue home SOTERO inhibitor--> Benzepril 10 mg daily -Hold home HCTZ -As needed nitro -[facility] today -Cardiology has already evaluated the patient in the emergency department DM-2 -Check hemoglobin A1c -BGT before meals and at bedtime -SSI moderate dose -Hold home glipizide Hyperlipidemia -Check lipids -Continue Zetia -Start high dose statin-Lipitor 80 mg nightly Severe COPD -Stage III by gold classification -Continue home inhalers -As needed albuterol -Supplemental O2 as needed -Continue home Mucinex Diabetic neuropathy -Continue Lyrica -Continue amitriptyline Seasonal allergies -Continue Singulair GERD -Continue PPI -As needed Mylanta Depression -Continue Zoloft -Continue Wellbutrin Tobacco abuse -Recommend cessation -We will offer nicotine patch DVT prophylaxis -Subcu heparin twice daily CODE STATUS -Full code Inpatient E&M: 34008 Init Hosp L3
--- NOTE | 2020-04-29 13:36 | PCM.CONS.C ---
Reason for Consult Date of Consultation: 04/29/20 Reason for Consultation: Nausea and abdominal discomfort History of Present Illness: The patient is a 74 year old F with a past medical history significant for peripheral vascular disease, smoking's history for which she stopped almost 2 weeks ago. She presented to the emergency room today with significant nausea and abdominal discomfort. An EKG was done which demonstrated EKG changes with ST depression noted in the lead I, aVL, V5 and V6. She denied any chest pain no dizziness no diaphoresis no near syncope or syncope. Cardiac enzymes were performed and was noted to have a troponin of 10. I was called for evaluation I saw her in the emergency room and decided to bring her to the cardiac catheterization lab. Here she was free of any chest pain. She has had a past medical history significant for peripheral vascular disease status post left femoral angioplasty. [] Past Medical History Allergies/Adverse Reactions: Allergies levofloxacin [From Levaquin] Allergy (Verified 04/29/20 11:00) Shortness of breath hydrocodone Adverse Reaction (Verified 04/29/20 11:00) Nausea Home Medications: Ambulatory Orders Medication Instructions Recorded Benazepril/Hydrochlorothiazide 1 tab PO DAILY 09/04/16 [Benazepril-Hctz 10-12.5 mg Tab] Omeprazole 1 tab PO DAILY 09/04/16 Sertraline HCl [Zoloft] 50 mg PO DAILY 09/04/16 Ascorbic Acid [Vitamin C] 1 tab PO DAILY 11/01/16 Cranberry 1 tab PO DAILY 11/01/16 Ezetimibe [Zetia] 10 mg PO DAILY 11/01/16 Montelukast [Singulair] 10 mg PO DAILY 11/01/16 Ubidecarenone [Coenzyme Q-10] 1 tab PO DAILY 11/01/16 albuterol sulfate 90 mcg/actuation 2 puff INHALATION Q4H PRN g 01/20/17 aerosol inhaler guaifenesin 1,200 mg tablet, 1,200 mg PO Q12H PRN 11/23/17 extended release 12 hr Lyrica 25 mg PO BID 03/22/18 Meloxicam 15 mg PO DAILY 03/22/18 Albuterol Aerosols [Ventolin 2.5 mg INHALATION Q4H PRN PRN 04/25/18 Aerosols] buPROPion tablets [Wellbutrin 75 mg PO BID 04/25/18 tablets] glipiZIDE [Glucotrol] 10 mg PO QHS 04/25/18 amitriptyline 25 mg tablet 25 mg PO DAILY 06/22/18 fluticasone fur. 100 mcg-umeclid 1 inh INHALATION DAILY #1 device 03/27/20 62.5 mcg-vilant 25 mcg inhalat.powder Past Medical History (Chronic Problems): Chronic Problems (Last Reviewed 03/27/20 @ 08:43 by Juliana Hernandez) Arthritis of shoulder (Chronic) Nicotine dependence, cigarettes, uncomplicated (Chronic) Chronic respiratory failure with hypoxia (Chronic) COPD exacerbation (Chronic) PAD (peripheral artery disease) (Chronic) Carotid stenosis, bilateral (Chronic) Stage 3 severe COPD by GOLD classification (Chronic) FEV1 49% of predicted Tobacco abuse (Chronic) Cough (Chronic) Shortness of breath (Chronic) Nocturnal hypoxia (Chronic) Stage 3 severe COPD by GOLD classification (Chronic) Chronic respiratory failure with hypoxia (Chronic) COPD (chronic obstructive pulmonary disease) (Chronic) HTN (hypertension) (Chronic) Diabetes (Chronic) Psoriasis (Chronic) Hypoxia (Chronic) Surgical History: no surgical history Psychiatric History: No pertinent psych hx 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 Sibling Family History: Family History (Last Reviewed 03/27/20 @ 08:43 by Juliana Hernandez) Mother Heart disease Sister Cancer History Items: Cancer, - - skin cancer Smoking Status: Former smoker Alcohol: None Drugs: None Review of Systems - Review of Systems General: Denies: Fever, Night Sweats, Fatigue HEENT: Denies: Vision Change Cardiovascular: Reports: Chest Heaviness. Denies: Chest Discomfort, Shortness of Breath, Orthopnea, PND, Peripheral Edema, Palpitations, Lightheadedness, Dizziness, Near Syncope, Syncope Respiratory: Denies: Cough, Sputum Production, Hemoptysis Gastrointestinal: Reports: Abdominal Discomfort, Nausea. Denies: Hematemesis, Hematochezia, Melena Genitourinary: Denies: Dysuria, Hematuria Skin: Denies: Rash Psychiatric: Denies: Anxiety Endocrine: Denies: Heat Intolerance Hematologic/ Lymphatic: Denies: Anemia Subjectve: Pleasant lady in no distress Objective: Vital Signs Temp Pulse Resp BP Pulse Ox 98.1 F 69 16 97/79 96 04/29/20 12:43 04/29/20 12:43 04/29/20 12:43 04/29/20 12:43 04/29/20 11:44 Oxygen Delivery Method Nasal Cannula Weight: 116 lb 13.52 oz Body Mass Index (BMI) 22.8 Finger Stick Blood Glucose 119 General: Awake, Alert, Oriented x 3 HEENT: PERRL, EOMI, Sclera Non Icteric Neck: Supple, Good ROM, No Lymph Node Enlargement Lungs: Clear to auscultation Cardiovascular: Regular Rhythm, Normal S1, Normal S2, No Murmurs, No Rubs, No Gallops Vascular: No Carotid Bruits, Normal Femoral Pulses, Normal Radial Pulses, Normal Dorsalis Pedal Pulse, Normal Posterior Tibial Pulses Abdomen: Bowel Sounds Present, Soft, Non Tender, No HSM, No Organomegaly Extremities: No Cyanosis, No Clubbing, No edema Musculoskeletal: No Erythema Skin: No Rashes Lymphatic: No Lymph Node Enlargement Neurological: No Focal Motor or Sensory Deficit Psych/Mental Status: Appropriate 04/29/20 11:20: Total Bilirubin 0.70, Direct Bilirubin 0.15 04/29/20 11:20: WBC 10.2, RBC 4.76, Hgb 14.6, Hct 45.5, MCV 95.6, MCH 30.7, MCHC 32.1, Plt Count 273, MPV 11.5, Immature Gran % (Auto) 0.300, Neut % (Auto) 72.0 H, Lymph % (Auto) 15.1 L, [place] % (Auto) 11.5 H, Eos % (Auto) 0.6, Baso % (Auto) 0.5, Absolute Neuts (auto) 7.3, Nucleated RBC % 0 04/29/20 11:20: Sodium 142, Potassium 4.4, Chloride 106, Carbon Dioxide 32.0, Anion Gap 4 L, BUN 19 H, Creatinine 0.91, Est GFR (MDRD) Af Amer 78, Est GFR (MDRD) Non-Af 64, BUN/Creatinine Ratio 20.8 H, Glucose 84, Calcium 9.8, Troponin I 10.700 H* Rhythm: EKG: Normal sinus rhythm with ST depression noted in 1 aVL V5 and V6 ECHO: Stress Test: Cardiac Cath: PCI: CT Surgery: Holter monitor: EPS: PPM: CXR: Chest CT Scan: Assessment/Plan 1. Non-ST elevation myocardial infarction The patient presented with nausea and EKG changes and abnormal cardiac troponin enzymes. She was counseled and agreed to have an urgent cardiac catheterization. It demonstrated the following: Small coronary vasculature Mildly calcified left main coronary artery with no high-grade stenosis Left anterior descending artery with moderate calcification but no high-grade stenosis Left circumflex artery with no high-grade stenosis Dominant calcified right coronary artery with no high-grade stenosis Reduced left ventricular systolic function with severe anterior hypokinesis estimated ejection fraction of 35% consistent with Takotsubo cardiomyopathy. Based on the above angiographic findings the patient will be started on low-dose beta-albino Continue statin Encourage smoking cessation Would recommend searching for etiology of abdominal discomfort. Thank you for allowing me to participate in the care of your patient. Please don't hesitate to call if any issues arise.
--- NOTE | 2020-04-29 13:44 | ECHOD_ITS ---
Reason For Study: CAD/ASHD Procedure This was a 2D Doppler, Color Flow transthoracic echocardiogram. The study was technically difficult. Contrast injection was performed. Exam performed portable in patient room. Left Ventricle Normal LV size. Mild concentric left ventricular hypertrophy. The estimated ejection fraction is 30 %. Severe segmental systolic dysfunction (see wall motion). Stage 2 diastolic dysfunction. Mid- Anterior : Severely Hypokinetic. [place] : Akinetic. Lateral-Basal: Normal. Posterior-Basal: Normal. Infero-Basal: Normal. Basal inferoseptal: Normal. Mid-Posterior: Normal. Mid-Lateral : Normal. Mid- Inferior: Normal. Mid-anteroseptal : Hypokinetic. Right Ventricle Normal RV size. Normal systolic function. Atria Normal left atrium. Normal right atrium. Mitral Valve Bileaflet diffuse mitral valve thickening. Moderate (2+) eccentric mitral valve insufficiency. Tricuspid Valve Normal tricuspid valve. Mild (1+) tricuspid valve insufficiency. Pulmonary artery systolic pressure is 30 mmHg. Aortic Valve Trisinus/trileaflet aortic valve. Pulmonic Valve Normal pulmonic valve. Great Vessels Normal aortic root. Pericardium/Pleural No pericardial effusion. Medication Diluted definity 3ml given slow IV push to enhance endocardial definition. MMode/2D Measurements & Calculations LVIDd: 4.4 cm IVSd: 1.2 cm LA dimension: 3.7 cm LVIDs: 3.5 cm LVPWd: 1.2 cm FS: 19.7 % LAV(MOD-bp): 43.2 ml LVAd ap4: 30.0 cm2 SV(MOD-sp4): 28.7 ml LAV(MOD-bp) Indexed: 29.2 ml/m2 EDV(MOD-sp4): 94.1 ml LAV(MOD-sp2): 42.8 ml EDV(sp4-el): 97.2 ml LAV(MOD-sp4): 37.8 ml LVAs ap4: 23.6 cm2 ESV(MOD-sp4): 65.4 ml ESV(sp4-el): 68.5 ml EF(MOD-sp4): 30.5 % EF(sp4-el): 29.6 % SV(sp4-el): 28.7 ml LA A4 area: 14.9 cm2 RA A4 area: 9.1 cm2 Time Measurements MV dec time: 0.16 sec Doppler Measurements & Calculations MV E max shawn: 104.6 cm/sec Lat Peak E' Shawn: 10.8 cm/sec Med Peak E' Shawn: 7.4 cm/sec MV A max shawn: 81.4 cm/sec E/E' lat: 9.6 E/E' med: 14.1 MV E/A: 1.3 MV V2 max: 109.1 cm/sec MV P1/2t max shawn: 110.4 cm/sec Ao V2 max: 149.8 cm/sec MV max P.8 mmHg MV P1/2t: 67.9 msec Ao max P.0 mmHg MV V2 mean: 65.9 cm/sec MV mean P.0 mmHg MV dec slope: 476.3 cm/sec2 MV V2 VTI: 25.4 cm MVA(P1/2t): 3.2 cm2 LV V1 max: 108.7 cm/sec MR max shawn: 476.4 cm/sec PA V2 max: 82.2 cm/sec LV V1 max P.7 mmHg MR max P.8 mmHg MR mean shawn: 367.1 cm/sec MR mean P.4 mmHg MR VTI: 162.0 cm TR max shawn: 262.6 cm/sec TR max P.6 mmHg Interpretation Summary Normal LV size. Mild concentric left ventricular hypertrophy. The estimated ejection fraction is 30 %. Severe segmental systolic dysfunction (see wall motion). Pulmonary artery systolic pressure is 30 mmHg. Stage 2 diastolic dysfunction. Moderate (2+) eccentric mitral valve insufficiency. Contrast injection was performed. Ordering Physician: Matthew Jean Referring Physician: Chico Bejarano Performed By: Lopez Soriano RCS
--- NOTE | 2020-04-29 13:48 | CL.D_ITS ---
Patient Name: HARIS NEWMAN Study Date: 04/29/2020 Performing: Matthew Jean MD Ht: 59.84 inches 152 cm : 1945 Wt: 116.84 lbs 53 kg Age: 74 Gender: female BSA: 1.48 PROCEDURE(S) PERFORMED IU65-HVP/COR/LV CLINICAL PROFILE AND INDICATIONS Indications: ACS <= 24 hrs Heart Failure: None Stress/Imaging Stress/Image Study Performed: No CONCLUSIONS Non obstructive coronary arteries Cardiomyopathy: Takotsubo RECOMMENDATIONS Medical therapy DESCRIPTION OF PROCEDURE The patient arrived to the procedure lab. The risks and benefits of the procedure as well as a full d escription of our services here and current unavailability of surgical backup were fully explained to the patient and/or their significant other prior to the catheterization. The Timeout was completed, verifying the correct patient and procedure. The patient's procedural site was prepped and draped in the usual fashion. Local anesthetic was given subcutaneously to right radial region with Lidocaine 2% . Using a modified Seldinger technique, arterial access was obtained via the right radial artery, a 6 Fr sheath was inserted. Right Coronary Artery selective angiography was then performed in multiple v iews using a 5 Fr. 4.0 [place] catheter. Left Coronary Artery selective angiography was performed in mu ltiple views using a 5 Fr. JL3.5 catheter. Left Ventriculography was performed in GOEL projection usin g a 5 Fr. Pigtail catheter. LV to AO pullback pressures were then recorded.The arterial sheath was pulled and a TR Band was applied for hemostasis CORONARY ANGIOGRAPHY DOMINANCE: Right Dominant LEFT HEART ASSESSMENT Left Ventricular Ejection Fraction: by LV Gram 35 % Anterior Hypokinesis - Severe Consistent with Takotsubo cardiomyopathy. LEFT MAIN: Mild calcification, No significant disease noted LEFT ANTERIOR DESCENDING ARTERY: Moderate calcification, Mild luminal irregularities less than 30% CIRCUMFLEX ARTERY: Mild luminal irregularities less than 30% RIGHT CORONARY ARTERY: Mild luminal irregularities less than 30% Moderate calcification AORTIC ROOT: Calcified COMPLICATIONS No Complications PROCEDURE MEDICATIONS Versed 1 mg IV Fentanyl 25 mcg IV Oxygen: 2 L/min via nasal cannula Heparin diluted in 23cc Heparinized saline. Patient given 5cc IA of this solution. 04/29/2020 13:10:5 8 Verapamil 2.5mg, Ntg 100mcgs, 2000 units of Heparin diluted in 23cc Heparinized saline. Patient give n 5cc IA of this solution. 04/29/2020 13:10:58 IV Fluids: .9 NaCl increased to WO ml/hr 04/29/2020 13:18:33 SUMMARY OF HEMODYNAMIC DATA Time AIR REST ECG 13:02:15 AO 96/51 (70) SA 13:13:13 LV 104/17, 27 13:31:23 LV 105/17, 26 13:31:29 LV 94/19, 28 13:32:15 LVp 96/20, 32 13:32:20 AOp 98/50 (69) 13:32:25 Signed By Matthew Jean MD On 04/29/2020 1:48:10 PM Matthew Jean MD
[2020-04-29 16:36] LABS: Bedside Glucose 56 mg/dL (70-110)
[2020-04-29 17:50] LABS: Bedside Glucose 85 mg/dL (70-110)
[2020-04-29] MEDS: Ipratropium/Albuterol Sulfate 3 ML AMPUL.NEB INHALATION (18:51)
[2020-04-29] MEDS: Budesonide Respules 0.5 MG/2 ML AMPUL.NEB. INHALATION (18:51)
[2020-04-29] MEDS: Amitriptyline 25 MG Tablet PO (21:30)
[2020-04-29] MEDS: Montelukast 10 MG Tablet PO (21:31)
[2020-04-29] MEDS: buPROPion 75 MG Tablet PO (21:31)
[2020-04-29 21:35] LABS: Bedside Glucose 131 mg/dL (70-110)
[2020-04-29] MEDS: Pregabalin 25 MG Capsule PO (22:21)
[2020-04-29] MEDS: Heparin Injection (Vial) 5,000 UNIT/ML VIAL 5000 UNIT SC (22:21)
[2020-04-30] VITALS (17 sets, daily range): BP systolic 80–108; BP diastolic 47–74; PULSE 63–92; RESP 14–18; TEMP 36.4–36.7; O2SAT 92–96
[2020-04-30 05:29] LABS: Absolute Lymphocyte Count 1.13 X10^3/uL (0.83-4.51); Absolute Neutrophil Count 8.7 X10^3/uL (2.0-7.7); Basophil# 0.02 X10^3/uL; Basophil% 0.2 % (0-1); Eosinophil# 0.11 X10^3/uL; Hematocrit 38.4 % (37-47); Hemoglobin 11.8 g/dL (12.0-15.0); Lymphocyte # 1.13 X10^3/ul (4.0); Mean Corp Hgb Conc 30.7 g/dL (32-36); Mean Corpuscular Hgb 30.6 pg (27.0-32.0); Mean Corpuscular Volume 99.7 fL (81-99); Mean Platelet Vol. 11.6 fl (6.2-12.0); Monocyte# 1.29 X10^3/uL; Monocyte% 11.4 % (0-10); NRBC Flagged by Analyzer 0 % (0-5); Neutrophil # 8.69 X10^3/uL (2.7-7.7); Platelet Count 189 K/mm3 (150-450); RBC Distribution Width SD 51.1 fl (35.1-43.9); Red Blood Count 3.85 M/mm3 (4.2-5.4); White Blood Count 11.3 K/mm3 (4.4-11.0)
[2020-04-30 06:23] LABS: ALB/GLOB Ratio 0.9 RATIO (0.9-2.4); AST(SGOT) 79 U/L (15-37); Alanine Aminotransfer ALT/SGPT 36 U/L (13-56); Albumin, Serum 2.7 g/dL (3.2-5.0); Alkaline Phosphatase 64 U/L (45-117); Anion Gap 6 (5-15); BUN 17 mg/dL (7-18); BUN/Creat Ratio 21.6 RATIO (10-20); Calcium,Total 8.1 mg/dL (8.5-10.1); Chloride 109 mmol/L (98-107); Cholesterol 179 mg/dL (200); Creatinine, Serum 0.79 mg/dL (0.55-1.02); EST Glomerular Filtration Rate 76 mL/min (>60); Est Glom Filt Rate - Afr Amer 92 mL/min (>60); Estimated Creatinine Clearance 36.53 ml/min; Globulin 2.9 g/dL (2.2-4.2); Glucose 124 mg/dL (74-106); Magnesium 2.1 mg/dL (1.6-2.6); Phosphorus 4.1 mg/dL (2.5-4.9); Potassium 4.1 mmol/L (3.5-5.1); Protein, Total 5.6 g/dL (6.4-8.2); Sodium Level 140 mmol/L (136-145); Triglycerides 149 mg/dL
[2020-04-30 06:24] LABS: High Density Lipoprotein 38 mg/dL; Thyroid Stim Hormone (TSH) 1.68 uIU/mL (0.358-3.74); Very Low Density Lipoprotein 30 mg/dL (5-40)
[2020-04-30] MEDS: 0.9% Normal Saline 1,000 ML 150 ML IV (06:35)
[2020-04-30 06:36] LABS: Bedside Glucose 128 mg/dL (70-110)
[2020-04-30] MEDS: Ipratropium/Albuterol Sulfate 3 ML AMPUL.NEB INHALATION ×3 (06:51→18:41)
[2020-04-30] MEDS: Budesonide Respules 0.5 MG/2 ML AMPUL.NEB. INHALATION ×2 (06:52→18:41)
[2020-04-30 07:23] LABS: Hemoglobin A1c 5.9 % (3.8-5.6)
--- NOTE | 2020-04-30 07:58 | PN.CARD_ITS ---
Subjectve: Patient seen and evaluated. Appears to be stable. Objective: Vital Signs Temp Pulse Resp BP Pulse Ox 98.0 F 81 18 104/56 L 92 04/30/20 04:20 04/30/20 07:15 04/30/20 06:53 04/30/20 04:20 04/30/20 06:53 Oxygen Flow Rate (L/min) 1 Oxygen Delivery Method Nasal Cannula Weight: 120 lb 5.958 oz Body Mass Index (BMI) 23.6 Finger Stick Blood Glucose 119 Intake and Output for Last 24 Hours 04/28/20 04/29/20 04/30/20 23:59 23:59 23:59 Intake Total 1994 1000 / 1000 Balance 1994 1000 / 999 General: Awake, Alert, Oriented x 3 HEENT: PERRL, EOMI, Sclera Non Icteric Neck: Supple, Good ROM, No Lymph Node Enlargement Lungs: Clear to auscultation Cardiovascular: Regular Rhythm, Normal S1, Normal S2, No Murmurs, No Rubs, No Gallops Vascular: No Carotid Bruits, Normal Femoral Pulses, Normal Radial Pulses, Normal Dorsalis Pedal Pulse, Normal Posterior Tibial Pulses Abdomen: Bowel Sounds Present, Soft, Non Tender, No HSM, No Organomegaly Extremities: No Cyanosis, No Clubbing, No edema Musculoskeletal: No Erythema Lymphatic: No Lymph Node Enlargement Neurological: No Focal Motor or Sensory Deficit 04/29/20 11:20: Total Bilirubin 0.70, Direct Bilirubin 0.15 04/29/20 11:20: WBC 10.2, RBC 4.76, Hgb 14.6, Hct 45.5, MCV 95.6, MCH 30.7, MCHC 32.1, Plt Count 273, MPV 11.5, Immature Gran % (Auto) 0.300, Neut % (Auto) 72.0 H, Lymph % (Auto) 15.1 L, [place] % (Auto) 11.5 H, Eos % (Auto) 0.6, Baso % (Auto) 0.5, Absolute Neuts (auto) 7.3, Nucleated RBC % 0 04/29/20 11:20: Sodium 142, Potassium 4.4, Chloride 106, Carbon Dioxide 32.0, Anion Gap 4 L, BUN 19 H, Creatinine 0.91, Est GFR (MDRD) Af Amer 78, Est GFR (MDRD) Non-Af 64, BUN/Creatinine Ratio 20.8 H, Glucose 84, Calcium 9.8, Troponin I 10.700 H* 04/30/20 05:04: WBC 11.3 H, RBC 3.85 L, Hgb 11.8 L, Hct 38.4, MCV 99.7 H, MCH 30.6, MCHC 30.7 L, Plt Count 189, MPV 11.6, Immature Gran % (Auto) 0.400, Neut % (Auto) 77.0 H, Lymph % (Auto) 10.0 L, [place] % (Auto) 11.4 H, Eos % (Auto) 1.0, Baso % (Auto) 0.2, Absolute Neuts (auto) 8.7 H, Nucleated RBC % 0 04/30/20 05:04: Sodium 140, Potassium 4.1, Chloride 109 H, Carbon Dioxide 25.0, Anion Gap 6, BUN 17, Creatinine 0.79, Est GFR (MDRD) Af Amer 92, Est GFR (MDRD) Non-Af 76, BUN/Creatinine Ratio 21.6 H, Glucose 124 H, Calcium 8.1 L, Phosphorus 4.1, Magnesium 2.1, Total Bilirubin 0.40, Triglycerides 149, Cholesterol 179, LDL Cholesterol 111, VLDL Cholesterol 30, HDL Cholesterol 38 L 04/30/20 05:04: Hemoglobin A1c 5.9 H Rhythm: EKG: ECHO: Stress Test: Cardiac Cath: PCI: CT Surgery: Holter monitor: EPS: PPM: CXR: Chest CT Scan: Medical Necessity - Tobacco Use Smoking Status: Former smoker Tobacco Use: Cigarettes Assessment/Plan 1. Non-ST elevation myocardial infarction * Patient was evaluated yesterday and it demonstrated the following Small coronary vasculature Mildly calcified left main coronary artery with no high-grade stenosis Left anterior descending artery with moderate calcification but no high-grade stenosis Left circumflex artery with no high-grade stenosis Dominant calcified right coronary artery with no high-grade stenosis Reduced left ventricular systolic function with severe anterior hypokinesis estimated ejection fraction of 35% consistent with Takotsubo cardiomyopathy. Based on the above angiographic findings the patient will be started on low-dose beta-albino Continue statin Encourage smoking cessation Echocardiogram confirmed ejection fraction with severely hypokinetic anterior wall. Would recommend searching for etiology of abdominal discomfort. Thank you for allowing me to participate in the care of your patient. Please don't hesitate to call if any issues arise. Can be discharged from the cardiac standpoint. Office follow-up scheduled.
--- NOTE | 2020-04-30 08:57 | NM_ITS ---
STUDY: HEPATOBILARY SCINTGRAPHY REASON FOR EXAM: Female, 74 years old. Abdominal pain COMPARISON STUDIES : NM - None. CR - Not available for review at this time. CT - Not available for review at this time. MR - Not available for review at this time. Ultrasound earlier today Technique: After the administration of mCi of technetium 99m Choletec intravenously, multiple scintigraphic images of the abdomen were obtained.. Findings: Homogeneous uptake of radiopharmaceutical throughout the hepatic parenchyma. Prompt excretion into the biliary tree first seen on the 10 minute image. Prompt visualization of the gallbladder first seen on the 60 minute image. Passage of radiopharmaceutical from the biliary tree into the small bowel ensuring patency of the common bile duct. . NM/Hepatobilliary Imaging IMPRESSION: Normal hepatobiliary scintigraphy Electronically Signed: Abhi Pinon MD at 11:43 EDT Tel , Service support ,
--- NOTE | 2020-04-30 10:05 | CASEMGMT ---
RN CM Face to Face with patient for initial transition planning/care coordination assessment. RN CM introduced self and role at [facility]. Patient lying in bed, alert and oriented, daughter at bedside. Patient willing to participate in assessment and is able to answer all questions appropriately. Care providers, pharmacy, and demographics verified. Patient wishes to discharge home, denies need for home health at this time. Patient states she has no further needs or concerns at this time. CM to follow for discharge planning needs that may arise. PCP: Darci Specialists: Satya html developer Preferred Pharmacy: [facility] Insurance: [employer] Prescription Benefit: yes Living Will/HPOA: yes, daughter Genoveva Licona LNOK: daughter Living Arrangements: Patient lives with a daughter in a single story home with 4 steps and railing to enter the home. Patient states she is independent at home. Transportation: self/daughter DME/HHC: Patient states she has Bipap, nebulizer, and oxygen at 2 lpm with portability. Patient denies previous HHC or SNF Disposition Plan: Patient to discharge home with family support and follow-up plans in place. Dianna SAINZN, RN, CM
--- NOTE | 2020-04-30 11:56 | CON.PCM_ITS ---
Reason for Consult Date of Consultation: 04/30/20 History of Present Illness: The patient is a 74 year old F Initially admitted yesterday due to elevated troponin patient had cardiac cath which was normal. Troponin was attributed to takotsubo. Patient was still having some reflux-like symptoms that she had an ultrasound of her gallbladder which showed a thickened gallbladder with some pericholecystic fluid. Patient did receive anticoagulation including Brilinta during the cardiac cath yesterday. Also patient's ejection fraction was 30% on echo. Patient denied right upper quadrant pain currently but her daughter did state that when she was eating yesterday she did complain of some abdominal pain. Past Medical History Past Medical History (Chronic Problems): Chronic Problems (Last Updated 04/30/20 @ 07:50 by Jana Madrigal) Nonobstructive atherosclerosis of coronary artery (Chronic) Essential (primary) hypertension (Chronic) Hyperlipidemia (Chronic) PAD (peripheral artery disease) (Chronic) Carotid stenosis, bilateral (Chronic) Stage 3 severe COPD by GOLD classification (Chronic) FEV1 49% of predicted Chronic respiratory failure with hypoxia (Chronic) Nicotine dependence (Chronic) Tobacco abuse (Chronic) Nocturnal hypoxia (Chronic) Cough (Chronic) Medical History: Medical History (Last Updated 04/30/20 @ 07:50 by Jana Madrigal) NSTEMI (non-ST elevated myocardial infarction) (Acute) Onset Date: 04/29/20 I21.4 Takotsubo cardiomyopathy (Acute) Onset Date: 04/29/20 I51.81 Nonobstructive atherosclerosis of coronary artery (Chronic) I25.10 Essential (primary) hypertension (Chronic) I10 Hyperlipidemia (Chronic) E78.5 PAD (peripheral artery disease) (Chronic) I73.9 Carotid stenosis, bilateral (Chronic) I65.23 Stage 3 severe COPD by GOLD classification (Chronic) J44.9 FEV1 49% of predicted Chronic respiratory failure with hypoxia (Chronic) J96.11 Nicotine dependence (Chronic) F17.200 Tobacco abuse (Chronic) Z72.0 Nocturnal hypoxia (Chronic) G47.34 Cough (Chronic) R05 COPD exacerbation (Resolved) J44.1 Chest pain (Resolved) R07.9 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 Diabetes E11.9 Psoriasis L40.9 Allergies levofloxacin [From Levaquin] Allergy (Verified 04/29/20 11:00) Shortness of breath hydrocodone Adverse Reaction (Verified 04/29/20 11:00) Nausea Home Medications: Ambulatory Orders Medication Instructions Recorded Benazepril/Hydrochlorothiazide 1 tab PO DAILY 09/04/16 [Benazepril-Hctz 10-12.5 mg Tab] Omeprazole 1 tab PO DAILY 09/04/16 Sertraline HCl [Zoloft] 50 mg PO DAILY 09/04/16 Ascorbic Acid [Vitamin C] 1 tab PO DAILY 11/01/16 Cranberry 1 tab PO DAILY 11/01/16 Ezetimibe [Zetia] 10 mg PO DAILY 11/01/16 Montelukast [Singulair] 10 mg PO DAILY 11/01/16 Ubidecarenone [Coenzyme Q-10] 1 tab PO DAILY 11/01/16 albuterol sulfate 90 mcg/actuation 2 puff INHALATION Q4H PRN g 01/20/17 aerosol inhaler guaifenesin 1,200 mg tablet, 1,200 mg PO Q12H PRN 11/23/17 extended release 12 hr Lyrica 25 mg PO BID 03/22/18 Meloxicam 15 mg PO DAILY 03/22/18 Albuterol Aerosols [Ventolin 2.5 mg INHALATION Q4H PRN PRN 04/25/18 Aerosols] buPROPion tablets [Wellbutrin 75 mg PO BID 04/25/18 tablets] glipiZIDE [Glucotrol] 10 mg PO QHS 04/25/18 amitriptyline 25 mg tablet 25 mg PO DAILY 06/22/18 fluticasone fur. 100 mcg-umeclid 1 inh INHALATION DAILY #1 device 03/27/20 62.5 mcg-vilant 25 mcg inhalat.powder Surgical History: Surgical History (Last Reviewed 04/29/20 @ 15:[address] 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 Trina Tran DO) Mother Heart disease Sister Cancer History Items: Heart Disease Paternal Family History: Family History (Last Reviewed 04/29/20 @ 15:[address] Trina Tran DO) Mother Heart disease Sister Cancer History Items: - - Father with black lung in addition to history of Alzheimer's disease. Sibling Family History: Family History (Last Reviewed 04/29/20 @ 15:[address] Trina Tran DO) Mother Heart disease Sister Cancer History Items: Cancer, - - skin cancer Review of Systems Constitutional: Denies: Fever Eyes: Denies: Blurred vision HEENT: Denies: Difficulty Swallowing Cardiovascular: Reports: - - Reflux burning sensationIn her esophagus Respiratory: Denies: Cough Gastrointestinal: Reports: Abdominal Pain, Dyspepsia, Nausea Skin: Denies: Jaundice Neurological: Denies: Balance problems Psychiatric: Denies: Depression Hematologic/ Lymphatic: Denies: Easy Bleeding Patient Problems: Active and Suspected Problems (Last Updated 04/30/20 @ 07:50 by Jana Madrigal) NSTEMI (non-ST elevated myocardial infarction) (Acute 04/29/20) - Physical Exam Vitals/I&O's: Vital Signs Temp Pulse Resp BP Pulse Ox 98.0 F 81 18 104/56 L 92 04/30/20 04:20 04/30/20 07:15 04/30/20 06:53 04/30/20 04:20 04/30/20 06:53 Oxygen Flow Rate (L/min) 1 Oxygen Delivery Method Room Air Weight: 120 lb 5.958 oz Body Mass Index (BMI) 23.6 Finger Stick Blood Glucose 119 Intake and Output for Last 24 Hours 04/28/20 04/29/20 04/30/20 23:59 23:59 23:59 Intake Total 1994 1150 / 1150 Balance 1994 1150 / 1150 General: Alert, Oriented x3, Cooperative, No apparent distress HEENT: Atraumatic Lungs: Normal air movement Abdomen: Soft, Non-Distended, Tender - Right upper quadrant, no peritoneal signs Extremities: No clubbing, No cyanosis, No edema Neurological: Cranial nerves II-XII grossly intact Psych/Mental Status: Normal Affect Laboratory Results 04/29/20 11:20: Sodium 142, Potassium 4.4, Chloride 106, Carbon Dioxide 32.0, Anion Gap 4 L, BUN 19 H, Creatinine 0.91, Estim Creat Clear Calc 40.14, Est GFR (MDRD) Af Amer 78, Est GFR (MDRD) Non-Af 64, BUN/Creatinine Ratio 20.8 H, Glucose 84, Calcium 9.8, Troponin I 10.700 H*, Lipase 51 L 04/29/20 16:29: POC Glucose 56 L 04/29/20 16:50: POC Glucose 85 04/29/20 21:27: POC Glucose 131 H 04/30/20 05:04: WBC 11.3 H, RBC 3.85 L, Hgb 11.8 L, Hct 38.4, MCV 99.7 H, MCH 30.6, MCHC 30.7 L, RDW Std Deviation 51.1 H, RDW Coeff of Mateus 14.0, Plt Count 189, MPV 11.6, Immature Gran % (Auto) 0.400, Neut % (Auto) 77.0 H, Lymph % (Auto) 10.0 L, Edgar % (Auto) 11.4 H, Eos % (Auto) 1.0, Baso % (Auto) 0.2, Absolute Neuts (auto) 8.7 H, Absolute Lymphs (auto) 1.13, Nucleated RBC % 0 04/30/20 05:04: Sodium 140, Potassium 4.1, Chloride 109 H, Carbon Dioxide 25.0, Anion Gap 6, BUN 17, Creatinine 0.79, Estim Creat Clear Calc 36.53, Est GFR (MDRD) Af Amer 92, Est GFR (MDRD) Non-Af 76, BUN/Creatinine Ratio 21.6 H, Glucose 124 H, Calcium 8.1 L, Phosphorus 4.1, Magnesium 2.1, Total Bilirubin 0.40, AST 79 H, ALT 36, Alkaline Phosphatase 64, Total Protein 5.6 L, Albumin 2.7 L, Globulin 2.9, Albumin/Globulin Ratio 0.9, Triglycerides 149, Cholesterol 179, LDL Cholesterol 111, VLDL Cholesterol 30, HDL Cholesterol 38 L, TSH 1.68 04/30/20 05:04: Hemoglobin A1c 5.9 H 04/30/20 06:32: POC Glucose 128 H Current Medications Acetaminophen (Acetaminophen 325 Mg Tablet) 650 mg PO Q6H PRN PRN PRN Reason: Pain Score 1-10/Temp > 100.7 F Al Hydroxide/Mg Hydroxide (Mag Hydrox/Al Hydrox/Simeth 30 Ml Udc) 30 ml PO Q6H PRN PRN PRN Reason: Gastric Burning Albuterol Sulfate (Albuterol 2.5 Mg/3 Ml Vial.Neb.) 2.5 mg INHALATION Q2H PRN PRN PRN Reason: SOB/Wheezing Albuterol/Ipratropium (Ipratropium/Albuterol Sulfate 3 Ml Ampul.Neb) 3 ml INHALATION Q6HWA.RT [facility] Last Admin: 04/30/20 06:51 Dose: 3 ml Documented by: Amitriptyline HCl (Amitriptyline 25 Mg Tablet) 25 mg PO QHS [facility] Last Admin: 04/29/20 21:30 Dose: 25 mg Documented by: Aspirin (Aspirin E.C. 81 Mg Tablet) 81 mg PO DAILY [facility] Budesonide (Budesonide Respules 0.5 Mg/2 Ml Ampul.Neb.) 0.5 mg INHALATION Q12H.RT [facility] Last Admin: 04/30/20 06:52 Dose: 0.5 mg Documented by: Bupropion HCl (Bupropion 75 Mg Tablet) 75 mg PO BID [facility] Last Admin: 04/29/20 21:31 Dose: 75 mg Documented by: Carvedilol (Carvedilol 3.125 Mg Tablet) 3.125 mg PO BID [facility] Last Admin: 04/29/20 22:04 Dose: Not Given Documented by: Docusate Sodium (Docusate Sodium 100 Mg Capsule) 100 mg PO BID PRN PRN PRN Reason: Constipation Ezetimibe (Ezetimibe 10 Mg Tablet) 10 mg PO DAILY [facility] Guaifenesin (Guaifenesin 1,200 Mg Tablet) 1,200 mg PO Q12H PRN PRN Reason: COUGH Heparin Sodium (Porcine) (Heparin Injection (Vial) 5,000 Unit/Ml Vial) 5,000 unit SC Q12 [facility] Last Admin: 04/29/20 22:21 Dose: 5,000 unit Documented by: Piperacillin Sod/Tazobactam (Sod 3.375 gm/ Sodium Chloride) 50 mls @ 12.5 mls/hr IV Q8H [facility] Pantoprazole Sodium 40 mg/ (Sodium Chloride) 110 mls @ 330 mls/hr IV Q24 [facility] Insulin Human Lispro (Insulin Lispro 100 Unit/Ml Insuln.Pen) 0 unit SC TIDAC [facility]; Protocol Last Admin: 04/30/20 06:33 Dose: Not Given Documented by: Lisinopril (Lisinopril 5 Mg Tablet) 5 mg PO DAILY [facility] Montelukast Sodium (Montelukast 10 Mg Tablet) 10 mg PO QHS [facility] Last Admin: 04/29/20 21:31 Dose: 10 mg Documented by: Morphine Sulfate (Morphine 2 Mg/Ml Syringe) 2 mg IV Q3H PRN PRN PRN Reason: Pain Score 6-10 Nitroglycerin (Nitroglycerin (Inpatient Use) 0.4 Mg Tab.Subl) 0.4 mg SL Q5M PRN PRN Reason: CARDIAC/CHEST PAIN Ondansetron HCl (Ondansetron 4 Mg/2 Ml Vial) 4 mg IV Q8H PRN PRN PRN Reason: NAUSEA/VOMITING Pregabalin (Pregabalin 25 Mg Capsule) 25 mg PO BID [facility] Last Admin: 04/29/20 22:21 Dose: 25 mg Documented by: Sertraline HCl (Sertraline 50 Mg Tablet) 50 mg PO DAILY [facility] Sodium Chloride (0.9% Saline Lock 10 Ml Syringe) 10 - 40 ml IV UD PRN PRN Reason: SALINE FLUSH Assessment/Plan All Active Problems (Last Updated 04/30/20 @ 07:50 by Jana Madrigal) NSTEMI (non-ST elevated myocardial infarction) (Acute 04/29/20) Takotsubo cardiomyopathy (Acute 04/29/20) COPD exacerbation (Resolved) Chest pain (Resolved) Ischemic foot (Resolved) Lung mass (Resolved) 74-year-old female initially admitted for NSTEMI--normal heart cath--> Takotsubos, Acute cholecystitis 1. Discussed with patient and her family plan for cholecystostomy tube due to anticoagulation, Takotsubos. Would plan for interval cholecystectomy. Patient's HIDA scan did show acute cholecystitis. Cholecystostomy tube will be placed tomorrow 10 AM per radiology. We will hold heparin prior. 2. Continue IV Zosyn.Okay for clears sparingly today n.p.o. after midnight Ayesha Ludwig M.D. Pager: [phone] [facility] [address] [place] [address], Outpatient [facility]ilion, [address] [place] [address] Office: [phone] Inpatient E&M: 14209 Init Hosp L3
[2020-04-30] MEDS: Carvedilol 3.125 MG TABLET PO ×2 (12:29→22:20)
[2020-04-30] MEDS: buPROPion 75 MG Tablet PO ×2 (12:30→22:20)
[2020-04-30] MEDS: Ezetimibe 10 MG Tablet PO (12:30)
[2020-04-30] MEDS: Sertraline 50 MG Tablet PO (12:30)
[2020-04-30] MEDS: Aspirin E.C. 81 MG Tablet PO (12:30)
[2020-04-30] MEDS: Pregabalin 25 MG Capsule PO ×2 (12:37→22:20)
[2020-04-30] MEDS: 0.9% Saline Lock 10 ML Syringe IV ×2 (12:38→22:32)
[2020-04-30 13:21] LABS: Bedside Glucose 88 mg/dL (70-110)
[2020-04-30] MEDS: Mag Hydrox/Al Hydrox/Simeth 30 ML UDC PO ×2 (14:27→20:33)
[2020-04-30] MEDS: Acetaminophen 325 MG Tablet 650 MG PO (14:30)
--- NOTE | 2020-04-30 16:09 | PN_ITS ---
Patient Problems: Active and Suspected Problems (Last Updated 04/30/20 @ 07:50 by Jana Madrigal) NSTEMI (non-ST elevated myocardial infarction) (Acute 04/29/20) Subjective: Patient states she is overall feeling well though has had recurrent indigestion and mild nausea overnight. She is not yet had anything to eat. She reports the ultrasound was done this morning and this was reviewed in her room with her. Vitals/I&O's: Vital Signs Temp Pulse Resp BP Pulse Ox 98 F 63 17 108/54 L 94 04/30/20 12:25 04/30/20 13:59 04/30/20 12:48 04/30/20 12:25 04/30/20 12:25 Oxygen Flow Rate (L/min) 2 Oxygen Delivery Method Nasal Cannula Weight: 54.6 kg Body Mass Index (BMI) 23.6 Finger Stick Blood Glucose 119 Intake and Output for Last 24 Hours 04/28/20 04/29/20 04/30/20 23:59 23:59 23:59 Intake Total 1994 1260 / 1260 Balance 1994 1260 / 1260 General: Alert, Oriented x3, Cooperative, No apparent distress, Well developed, Well nourished HEENT: Atraumatic, PERRLA, EOMI, Normocephalic, EAC Clear Oral: Moist Mucosa, No Gingival or Mucosal Lesions/ Ulcerations, - - Dentures in place, Mallampati 2 Neck: Supple, Trachea Midline, Thyroid Normal Size and Texture Lungs: No rhonchi, No rales, Diminished - Diffusely, Wheezes - few scattered Cardiovascular: Regular rate, Regular Rhythm, Normal S1, Normal S2, No murmurs, No Ectopic Activity, No rub noted, No Gallop Abdomen: Bowel Sounds Present, Soft, Non-Distended, No Hepato-splenomegaly, Tender - Mild right upper quadrant Extremities: No clubbing, No cyanosis, No edema, Capillary Refill Less than 3 Seconds, Peripheral Pulses Normal Skin: No rashes, No breakdown Musculoskeletal: No Tenderness to Palpation of Joints or Extremities, No Muscle Wasting, Arthritic Changes Lymphatic: No Cervical, Supraclavicular, or Inguinal Adenopathy Neurological: Cranial nerves II-XII grossly intact, Neuro grossly intact, Muscle tone normal, Sensory exam intact to light touch and pain, Coordination normal Psych/Mental Status: Normal Affect Laboratory Results 04/29/20 16:29: POC Glucose 56 L 04/29/20 16:50: POC Glucose 85 04/29/20 21:27: POC Glucose 131 H 04/30/20 05:04: WBC 11.3 H, RBC 3.85 L, Hgb 11.8 L, Hct 38.4, MCV 99.7 H, MCH 30.6, MCHC 30.7 L, RDW Std Deviation 51.1 H, RDW Coeff of Mateus 14.0, Plt Count 189, MPV 11.6, Immature Gran % (Auto) 0.400, Neut % (Auto) 77.0 H, Lymph % (Auto) 10.0 L, [place] % (Auto) 11.4 H, Eos % (Auto) 1.0, Baso % (Auto) 0.2, Absolute Neuts (auto) 8.7 H, Absolute Lymphs (auto) 1.13, Nucleated RBC % 0 04/30/20 05:04: Sodium 140, Potassium 4.1, Chloride 109 H, Carbon Dioxide 25.0, Anion Gap 6, BUN 17, Creatinine 0.79, Estim Creat Clear Calc 36.53, Est GFR (MDRD) Af Amer 92, Est GFR (MDRD) Non-Af 76, BUN/Creatinine Ratio 21.6 H, Glu cose 124 H, Calcium 8.1 L, Phosphorus 4.1, Magnesium 2.1, Total Bilirubin 0.40, AST 79 H, ALT 36, Alkaline Phosphatase 64, Total Protein 5.6 L, Albumin 2.7 L, Globulin 2.9, Albumin/Globulin Ratio 0.9, Triglycerides 149, Cholesterol 179, LDL Cholesterol 111, VLDL Cholesterol 30, HDL Cholesterol 38 L, TSH 1.68 04/30/20 05:04: Hemoglobin A1c 5.9 H 04/30/20 06:32: POC Glucose 128 H 04/30/20 13:09: POC Glucose 88 Current Medications Acetaminophen (Acetaminophen 325 Mg Tablet) 650 mg PO Q6H PRN PRN PRN Reason: Pain Score 1-10/Temp > 100.7 F Last Admin: 04/30/20 14:30 Dose: 650 mg Documented by: Al Hydroxide/Mg Hydroxide (Mag Hydrox/Al Hydrox/Simeth 30 Ml Udc) 30 ml PO Q6H PRN PRN PRN Reason: Gastric Burning Last Admin: 04/30/20 14:27 Dose: 30 ml Documented by: Albuterol Sulfate (Albuterol 2.5 Mg/3 Ml Vial.Neb.) 2.5 mg INHALATION Q2H PRN PRN PRN Reason: SOB/Wheezing Albuterol/Ipratropium (Ipratropium/Albuterol Sulfate 3 Ml Ampul.Neb) 3 ml INHALATION Q6HWA.RT [facility] Last Admin: 04/30/20 12:45 Dose: 3 ml Documented by: Amitriptyline HCl (Amitriptyline 25 Mg Tablet) 25 mg PO QHS [facility] Last Admin: 04/29/20 21:30 Dose: 25 mg Documented by: Aspirin (Aspirin E.C. 81 Mg Tablet) 81 mg PO DAILY [facility] Last Admin: 04/30/20 12:30 Dose: 81 mg Documented by: Budesonide (Budesonide Respules 0.5 Mg/2 Ml Ampul.Neb.) 0.5 mg INHALATION Q12H.RT [facility] Last Admin: 04/30/20 06:52 Dose: 0.5 mg Documented by: Bupropion HCl (Bupropion 75 Mg Tablet) 75 mg PO BID [facility] Last Admin: 04/30/20 12:30 Dose: 75 mg Documented by: Carvedilol (Carvedilol 3.125 Mg Tablet) 3.125 mg PO BID [facility] Last Admin: 04/30/20 12:29 Dose: 3.125 mg Documented by: Docusate Sodium (Docusate Sodium 100 Mg Capsule) 100 mg PO BID PRN PRN PRN Reason: Constipation Ezetimibe (Ezetimibe 10 Mg Tablet) 10 mg PO DAILY [facility] Last Admin: 04/30/20 12:30 Dose: 10 mg Documented by: Guaifenesin (Guaifenesin 1,200 Mg Tablet) 1,200 mg PO Q12H PRN PRN Reason: COUGH Piperacillin Sod/Tazobactam (Sod 3.375 gm/ Sodium Chloride) 50 mls @ 12.5 mls/hr IV Q8H [facility] Last Admin: 04/30/20 12:29 Dose: 12.5 mls/hr Documented by: Pantoprazole Sodium 40 mg/ (Sodium Chloride) 110 mls @ 330 mls/hr IV Q24 [facility] Last Infusion: 04/30/20 13:00 Dose: Infused Documented by: Insulin Human Lispro (Insulin Lispro 100 Unit/Ml Insuln.Pen) 0 unit SC TIDAC [facility]; Protocol Last Admin: 04/30/20 13:11 Dose: Not Given Documented by: Lisinopril (Lisinopril 5 Mg Tablet) 5 mg PO DAILY [facility] Last Admin: 04/30/20 12:31 Dose: Not Given Documented by: Montelukast Sodium (Montelukast 10 Mg Tablet) 10 mg PO QHS [facility] Last Admin: 04/29/20 21:31 Dose: 10 mg Documented by: Morphine Sulfate (Morphine 2 Mg/Ml Syringe) 2 mg IV Q3H PRN PRN PRN Reason: Pain Score 6-10 Nitroglycerin (Nitroglycerin (Inpatient Use) 0.4 Mg Tab.Subl) 0.4 mg SL Q5M PRN PRN Reason: CARDIAC/CHEST PAIN Ondansetron HCl (Ondansetron 4 Mg/2 Ml Vial) 4 mg IV Q8H PRN PRN PRN Reason: NAUSEA/VOMITING Pregabalin (Pregabalin 25 Mg Capsule) 25 mg PO BID [facility] Last Admin: 04/30/20 12:37 Dose: 25 mg Documented by: Sertraline HCl (Sertraline 50 Mg Tablet) 50 mg PO DAILY [facility] Last Admin: 04/30/20 12:30 Dose: 50 mg Documented by: Sodium Chloride (0.9% Saline Lock 10 Ml Syringe) 10 - 40 ml IV UD PRN PRN Reason: SALINE FLUSH Last Admin: 04/30/20 12:38 Dose: 10 ml Documented by: STROKE Vital Signs/Narrative: Vital Signs Temp Pulse Resp BP Pulse Ox 04/30/20 13:59 63 04/30/20 12:48 75 17 04/30/20 12:25 98 F 67 14 108/54 L 94 Medical Necessity - Tobacco Use Smoking Status: Former smoker Tobacco Use: Cigarettes Assessment/Plan All Active Problems (Last Updated 04/30/20 @ 07:50 by Jana Madrigal) NSTEMI (non-ST elevated myocardial infarction) (Acute 04/29/20) Takotsubo cardiomyopathy (Acute 04/29/20) COPD exacerbation (Resolved) Chest pain (Resolved) Ischemic foot (Resolved) Lung mass (Resolved) Takotsubo cardiomyopathy -Troponin elevation secondary to the above -[facility] revealed no significant coronary artery disease -EF was 35% with severe anterior hypokinesis and ballooning -Continue Coreg 3.125 twice daily -Continue statin -Continue aspirin -Continue lisinopril 5 mg daily -Discontinue hydrochlorothiazide 12.5 mg daily -Cardiology will follow up as an outpatient--> appointment made -Repeat echocardiogram in 6 weeks for follow-up on ejection fraction Acute cholecystitis -Upper quadrant ultrasound was performed with negative cath and persistent symptoms -Last dose of Brilinta was yesterday 04/29/2020 at 11:53 AM--> negates any major surgical intervention for 5 days -HIDA scan performed and was consistent with acute cholecystitis -Continue Zosyn -General surgery consulted--> I discussed the case with Dr. Anne and since surgery cannot be done for 5 days a PERC Geri tube will be placed tomorrow at 10 AM by interventional radiology [id number] -A1c is 5.9 -BGT before meals and at bedtime -SSI moderate dose -Hold home glipizide Hyperlipidemia -Total cholesterol is 179 with an LDL of 111 and an HDL of 38, triglycerides 149 -Continue Zetia -Continue Lipitor 80 mg daily -May be able to be reduced in the outpatient setting Severe COPD -Stage III by gold classification -Continue home inhalers -As needed albuterol -Supplemental O2 as needed -Continue home Mucinex Diabetic neuropathy -Continue Lyrica -Continue amitriptyline Seasonal allergies -Continue Singulair GERD -Continue PPI--> IV twice daily initiated today -As needed Mylanta Depression -Continue Zoloft -Continue Wellbutrin Tobacco abuse -Recommend cessation -Nicotine patch DVT prophylaxis -Subcu heparin twice daily CODE STATUS -Full code Inpatient E&M: 95730 Subs Hosp L3
--- NOTE | 2020-04-30 16:16 | US_ITS ---
STUDY: ABDOMINAL ULTRASOUND - RIGHT UPPER QUADRANT REASON FOR VISIT: Female, 74 years old Abdominal pain TECHNIQUE: Ultrasound evaluation of the right upper quadrant was performed with real-time and static hayes-scale imaging. TECHNICAL QUALITY: Adequate. COMPARISON: None. FINDINGS: Liver: The liver measures 14.4 cm. There is normal echogenicity of the liver. The bile ducts are within normal limits. There is hepatic color flow. The direction of portal flow is hepatopetal. There is no demonstrated mass lesion. Gallbladder: Normal distended gallbladder. The gallbladder wall is slightly thickened and measures 4 mm. There is a negative sonographic Pedroza''s sign. There is a small amount of pericholecystic fluid. There are multiple echogenic structures within the gallbladder, consistent with multiple gallstones. Common Bile Duct (C.B.D.): The common bile duct measures 4 mm. Pancreas: Normal size of the head, body and tail of the pancreas. There is normal echogenicity of the pancreas. There is no demonstrated pancreatic mass or cyst. Right Kidney: Normal size of the right kidney. The right kidney measures 9.6 cm x 4.4 cm x 3.8 cm. Normal renal cortex. The right cortex measures 1.6 cm. There is no demonstrated renal mass or cyst. There is no right hydronephrosis. US/Abdomen Limited IMPRESSION: Multiple gallstones. Mildly thickened gallbladder wall with a small amount of pericholecystic fluid. Incidental note is made of a small right pleural effusion. Electronically Signed: Kavin Jimenez MD at 8:03 EDT , Service support ,
[2020-04-30 18:36] LABS: Bedside Glucose 103 mg/dL (70-110)
[2020-04-30] MEDS: Amitriptyline 25 MG Tablet PO (22:20)
[2020-04-30] MEDS: Montelukast 10 MG Tablet PO (22:20)
[2020-04-30] MEDS: Ondansetron 4 MG/2 ML Vial IV (22:31)
[2020-04-30] MEDS: Calcium Carbonate 500 MG Tablet PO (22:55)
[2020-04-30 23:06] LABS: Bedside Glucose 118 mg/dL (70-110)
[2020-04-30] MEDS: Nitroglycerin (INPATIENT USE) 0.4 MG TAB.SUBL SL ×2 (23:26→23:31)
--- NOTE | 2020-04-30 23:28 | EKG12_ITS ---
Test Reason : POST ARREST Blood Pressure : / mmHG Vent. Rate : 122 BPM Atrial Rate : 150 BPM P-R Int : 160 ms QRS Dur : 140 ms QT Int : 280 ms P-R-T Axes : 000 -55 147 degrees QTc Int : 399 ms Ventricular tachycardia and NSR Left axis deviation Left bundle branch block Abnormal ECG When compared with ECG of 01-MAY-2020 07:55, MANUAL COMPARISON REQUIRED, DATA IS UNCONFIRMED Confirmed by MUKUND JACOBSON, JOHN ([id number]), content editor DARRYN DIAL ([id number]) on 05/01/2020 1:51:18 PM Referred By: COCO Confirmed By:JOHN DUVAL MD
[2020-05-01] VITALS (18 sets, daily range): BP systolic 61–138; BP diastolic 29–118; PULSE 48–120; RESP 8–29; TEMP 36.7–36.9; O2SAT 78–96
[2020-05-01 05:09] LABS: Absolute Neutrophil Count 9.4 X10^3/uL (2.0-7.7); Basophil# 0.04 X10^3/uL; Basophil% 0.3 % (0-1); Eosinophil# 0.04 X10^3/uL; Eosinophils% 0.3 % (0-5); Hematocrit 33.5 % (37-47); Lymphocyte % 10.1 % (19-41); Mean Corp Hgb Conc 32.8 g/dL (32-36); Mean Corpuscular Hgb 32.4 pg (27.0-32.0); Mean Corpuscular Volume 98.5 fL (81-99); Mean Platelet Vol. 11.5 fl (6.2-12.0); Monocyte# 1.09 X10^3/uL; Monocyte% 9.2 % (0-10); NRBC Flagged by Analyzer 0 % (0-5); Neutrophil # 9.38 X10^3/uL (2.7-7.7); Neutrophil % 79.3 % (47-70); Platelet Count 184 K/mm3 (150-450); RBC Distribution Width CV 14.7 % (11.6-14.6); RBC Distribution Width SD 51.8 fl (35.1-43.9); White Blood Count 11.9 K/mm3 (4.4-11.0)
[2020-05-01 05:38] LABS: Anion Gap 6 (5-15); BUN 13 mg/dL (7-18); BUN/Creat Ratio 17.1 RATIO (10-20); Calcium,Total 8.1 mg/dL (8.5-10.1); Chloride 109 mmol/L (98-107); Creatinine, Serum 0.76 mg/dL (0.55-1.02); EST Glomerular Filtration Rate 79 mL/min (>60); Est Glom Filt Rate - Afr Amer 96 mL/min (>60); Estimated Creatinine Clearance 36.53 ml/min; Glucose 105 mg/dL (74-106); Potassium 4.3 mmol/L (3.5-5.1); Sodium Level 137 mmol/L (136-145)
--- NOTE | 2020-05-01 05:55 | EKG12_ITS ---
Test Reason : CP Blood Pressure : / mmHG Vent. Rate : 086 BPM Atrial Rate : 086 BPM P-R Int : 166 ms QRS Dur : 134 ms QT Int : 416 ms P-R-T Axes : 079 -32 128 degrees QTc Int : 497 ms Normal sinus rhythm Left axis deviation Non-specific intra-ventricular conduction block T wave abnormality, consider anterolateral ischemia Abnormal ECG When compared with ECG of 29-APR-2020 14:49, MANUAL COMPARISON REQUIRED, DATA IS UNCONFIRMED Confirmed by MUKUND JACOBSON, JOHN ([id number]), map editor DARRYN DIAL ([id number]) on 05/01/2020 1:52:33 PM Referred By: BAUTISTA Confirmed By:JOHN DUVAL MD
[2020-05-01] MEDS: Budesonide Respules 0.5 MG/2 ML AMPUL.NEB. INHALATION (06:45)
[2020-05-01] MEDS: Ipratropium/Albuterol Sulfate 3 ML AMPUL.NEB INHALATION (06:45)
[2020-05-01 06:46] LABS: Bedside Glucose 98 mg/dL (70-110)
--- NOTE | 2020-05-01 07:50 | NURSING ---
Attempted to contact daughter. No answer. Message left to return call as soon as possible.
--- NOTE | 2020-05-01 07:54 | EKG12_ITS ---
Test Reason : POST ARREST Blood Pressure : / mmHG Vent. Rate : 073 BPM Atrial Rate : 073 BPM P-R Int : 216 ms QRS Dur : 154 ms QT Int : 344 ms P-R-T Axes : 078 -37 117 degrees QTc Int : 378 ms Sinus rhythm with 1st degree A-V block with occasional Premature ventricular complexes with ventricul ar escape complexes Left axis deviation Left bundle branch block Abnormal ECG ST appears more prominent in anterior leads Confirmed by MUKUND JACOBSON, JOHN ([id number]), slot editor DARRYN DIAL ([id number]) on 05/01/2020 1:53:30 PM Referred By: INES Confirmed By:JOHN DUVAL MD
--- NOTE | 2020-05-01 08:05 | RAD_ITS ---
STUDY: X-RAY CHEST REASON FOR EXAM: Female, 74 years old. Intubation TECHNIQUE: Single AP portable view of the chest. COMPARISON: Comparison is made with prior study 04/29/2020. FINDINGS: An endotracheal tube is seen. The tip is in the proximal portion of the right vein stem bronchus. It should be withdrawn approximately 3.5 cm. EKG electrodes are seen. There now is evidence of increased interstitial markings in both lungs more prominent on the right side suggestive of CHF. Blunting of both costophrenic angles. Normal size heart. Normal mediastinum and evelyn. Normal visualized pulmonary arteries. There is atherosclerotic calcification of the aortic arch with tortuosity. There are diffuse degenerative changes of the visualized thoracic spine. Normal visualized ribs, clavicles, and shoulders. There is no demonstrated abnormality of the visualized soft tissue structures of the upper abdomen. RAD/Chest 1 View (Portable) IMPRESSION: The tip of the endotracheal tube is at the proximal portion of the right mainstem bronchus. It should be withdrawn approximately 3.5 cm. There now is evidence of increased interstitial markings in both lungs worse on the right side suggestive of CHF. Blunting of both costophrenic angles. Electronically Signed: Kavin Jimenez MD at 8:56 EDT , Service support ,
--- NOTE | 2020-05-01 08:14 | PCM.PN.BLA ---
Progress Note Patient being transferred, intubated to ICU following code blue. Cholecystostomy tube procedure cancelled. Patient again currently intubated. Will re-evaluate at a later time. Dr. Ludwig aware. STROKE Vital Signs/Narrative: Vital Signs Temp Pulse Resp BP Pulse Ox 05/01/20 06:45 84 21 H 95 05/01/20 06:26 98.4 F 75 12 90/63 96 05/01/20 04:35 98.1 F 73 12 85/61 L 95
--- NOTE | 2020-05-01 08:15 | ECHOL_ITS ---
Reason For Study: takotsubo Procedure This was a limited 2D transthoracic echocardiogram. Limited views were obtained. Stat s/p Code Blue. Exam performed portable in ICU/CCU. Left Ventricle Normal LV size. The estimated ejection fraction is 15 %. Severe segmental systolic dysfunction (see wall motion). Infero-Basal: Akinetic. Posterior-Basal: Akinetic. Mid-Anterior : Hypokinetic. Henderson : Akinetic. Anterio-Basal: Normal. Mid-Inferior: Akinetic. Basal inferoseptal: Normal. Mid-Posterior: Akinetic. Great Vessels Normal aortic root. Pericardium/Pleural No pericardial effusion. MMode/2D Measurements & Calculations LVIDd: 4.3 cm IVSd: 0.93 cm LVIDs: 3.6 cm LVPWd: 0.92 cm FS: 15.5 % Interpretation Summary Normal LV size. The estimated ejection fraction is 15 %. Severe segmental systolic dysfunction (see wall motion). Compared to previous study, the left ventricular systolic function has worsened.. Ordering Physician: Matthew Jean Referring Physician: STEFFEN FRANCOIS Performed By: Yris Pino, RDCS, RVT
[2020-05-01] MEDS: 0.9% Saline Lock 10 ML Syringe IV (08:30)
[2020-05-01] MEDS: Propofol 10MG/Ml 1,000 MG/100 ML Bottle 3.4 MG CONT INF (08:30)
--- NOTE | 2020-05-01 08:30 | EKG12_ITS ---
Test Reason : CP Blood Pressure : / mmHG Vent. Rate : 078 BPM Atrial Rate : 078 BPM P-R Int : 138 ms QRS Dur : 106 ms QT Int : 396 ms P-R-T Axes : 084 -19 128 degrees QTc Int : 451 ms Normal sinus rhythm Right atrial enlargement Incomplete left bundle branch block ST & T wave abnormality, consider lateral ischemia Abnormal ECG Confirmed by MARQUES JACOBSON, OLAF ([id number]), book editor ARETHA HERRERA ([id number]) on 05/02/2020 12:26:26 PM Referred By: DEJUAN Confirmed By:KATTY MOHAN MD
--- NOTE | 2020-05-01 08:31 | NURSING ---
Dr. Tran and Dr. Hernadez at bedside to place central line Michael stick 0.5mg given at 0834 levophed gtt started at 0837 at 5 mcg/min
[2020-05-01] MEDS: Phenylephrine 1 MG/10 ML SYRINGE 0.5 MG IV (08:34)
[2020-05-01 08:35] LABS: Bedside Glucose 86 mg/dL (70-110)
--- NOTE | 2020-05-01 08:38 | CASEMGMT ---
Support offered to family, family and staff aware SW remains available for any supportive needs. ALICE Gomez
--- NOTE | 2020-05-01 09:33 | CASEMGMT ---
Social Work SW responded to Code Blue. Support offered to family. TYLER Schroeder
--- NOTE | 2020-05-01 09:33 | PCM.CODE.SUM ---
Sudha Cooper Report The patient is a 74-year-old female, well-known to me from the outpatient pulmonary clinic, who has a history of chronic tobacco dependency and severe COPD, who was initially admitted to the hospital on April 29 with complaints of chest pain. The patient did have an elevated troponin and was taken for cardiac catheterization following evaluation by cardiology. Her cardiac catheterization revealed nonobstructive coronary disease with Takotsubo cardiomyopathy. On the morning of May 01, the patient became unresponsive. SUDHA COOPER was called. Advanced cardiac life support was initiated on the PCU. The patient was intubated. Return of spontaneous circulation was eventually achieved. Patient was then urgently transferred to the medical intensive care unit for further stabilization. After being admitted to the ICU, a central venous catheter was placed. However, the patient repeatedly went into PEA cardiac arrest, necessitating advanced cardiac life support and numerous rounds of epinephrine and bicarbonate. Despite aggressive resuscitative efforts, the patient remained pulseless with disorganized cardiac activity. Resuscitative efforts were subsequently terminated with the family at the bedside at 0919. Patient Problems: Active and Suspected Problems (Last Updated 04/30/20 @ 07:50 by Jana Madrigal) NSTEMI (non-ST elevated myocardial infarction) (Acute 04/29/20) - Physical Exam Vitals/I&O's: Vital Signs Temp Pulse Resp BP Pulse Ox 98.4 F 58 L 12 97/50 L 93 05/01/20 06:26 05/01/20 08:32 05/01/20 08:32 05/01/20 07:42 05/01/20 07:40 Oxygen Flow Rate (L/min) 2 Oxygen Delivery Method Nasal Cannula Weight: 126 lb 1.671 oz Body Mass Index (BMI) 23.6 Finger Stick Blood Glucose 119 Intake and Output for Last 24 Hours 04/29/20 04/30/20 05/01/20 23:59 23:59 23:59 Intake Total 1994 2160.83 / 2160.83 1069.17 / 1069.17 Balance 1994 2160.83 / 2160.83 1069.17 / 1069.17 Labs (Last 48 Hours) 04/29/20 04/29/20 04/29/20 11:20 11:20 11:20 WBC 10.2 RBC 4.76 Hgb 14.6 Hct 45.5 MCV 95.6 MCH 30.7 MCHC 32.1 RDW Std Deviation 47.7 H RDW Coeff of Mateus 13.5 Plt Count 273 MPV 11.5 Immature Gran % (Auto) 0.300 Neut % (Auto) 72.0 H Lymph % (Auto) 15.1 L Geary % (Auto) 11.5 H Eos % (Auto) 0.6 Baso % (Auto) 0.5 Absolute Neuts (auto) 7.3 Absolute Lymphs (auto) 1.54 Nucleated RBC % 0 Sodium 142 Potassium 4.4 Chloride 106 Carbon Dioxide 32.0 Anion Gap 4 L BUN 19 H Creatinine 0.91 Estim Creat Clear Calc 40.14 Est GFR (MDRD) Af Amer 78 Est GFR (MDRD) Non-Af 64 BUN/Creatinine Ratio 20.8 H Glucose 84 Hemoglobin A1c Calcium 9.8 Phosphorus Magnesium Total Bilirubin 0.70 Direct Bilirubin 0.15 AST 83 H ALT 37 Alkaline Phosphatase 69 Troponin I 10.700 H* Total Protein 6.9 Albumin 3.5 Globulin 3.4 Albumin/Globulin Ratio Triglycerides Cholesterol LDL Cholesterol VLDL Cholesterol HDL Cholesterol Lipase 51 L TSH POC Glucose 04/29/20 04/29/20 04/29/20 16:29 16:50 21:27 WBC RBC Hgb Hct MCV MCH MCHC RDW Std Deviation RDW Coeff of Mateus Plt Count MPV Immature Gran % (Auto) Neut % (Auto) Lymph % (Auto) Geary % (Auto) Eos % (Auto) Baso % (Auto) Absolute Neuts (auto) Absolute Lymphs (auto) Nucleated RBC % Sodium Potassium Chloride Carbon Dioxide Anion Gap BUN Creatinine Estim Creat Clear Calc Est GFR (MDRD) Af Amer Est GFR (MDRD) Non-Af BUN/Creatinine Ratio Glucose Hemoglobin A1c Calcium Phosphorus Magnesium Total Bilirubin Direct Bilirubin AST ALT Alkaline Phosphatase Troponin I Total Protein Albumin Globulin Albumin/Globulin Ratio Triglycerides Cholesterol LDL Cholesterol VLDL Cholesterol HDL Cholesterol Lipase TSH POC Glucose 56 L 85 131 H 04/30/20 04/30/20 04/30/20 05:04 05:04 05:04 WBC 11.3 H RBC 3.85 L Hgb 11.8 L Hct 38.4 MCV 99.7 H MCH 30.6 MCHC 30.7 L RDW Std Deviation 51.1 H RDW Coeff of Mateus 14.0 Plt Count 189 MPV 11.6 Immature Gran % (Auto) 0.400 Neut % (Auto) 77.0 H Lymph % (Auto) 10.0 L Geary % (Auto) 11.4 H Eos % (Auto) 1.0 Baso % (Auto) 0.2 Absolute Neuts (auto) 8.7 H Absolute Lymphs (auto) 1.13 Nucleated RBC % 0 Sodium 140 Potassium 4.1 Chloride 109 H Carbon Dioxide 25.0 Anion Gap 6 BUN 17 Creatinine 0.79 Estim Creat Clear Calc 36.53 Est GFR (MDRD) Af Amer 92 Est GFR (MDRD) Non-Af 76 BUN/Creatinine Ratio 21.6 H Glucose 124 H Hemoglobin A1c 5.9 H Calcium 8.1 L Phosphorus 4.1 Magnesium 2.1 Total Bilirubin 0.40 Direct Bilirubin AST 79 H ALT 36 Alkaline Phosphatase 64 Troponin I Total Protein 5.6 L Albumin 2.7 L Globulin 2.9 Albumin/Globulin Ratio 0.9 Triglycerides 149 Cholesterol 179 LDL Cholesterol 111 VLDL Cholesterol 30 HDL Cholesterol 38 L Lipase TSH 1.68 POC Glucose 04/30/20 04/30/20 04/30/20 06:32 13:09 18:29 WBC RBC Hgb Hct MCV MCH MCHC RDW Std Deviation RDW Coeff of Mateus Plt Count MPV Immature Gran % (Auto) Neut % (Auto) Lymph % (Auto) Geary % (Auto) Eos % (Auto) Baso % (Auto) Absolute Neuts (auto) Absolute Lymphs (auto) Nucleated RBC % Sodium Potassium Chloride Carbon Dioxide Anion Gap BUN Creatinine Estim Creat Clear Calc Est GFR (MDRD) Af Amer Est GFR (MDRD) Non-Af BUN/Creatinine Ratio Glucose Hemoglobin A1c Calcium Phosphorus Magnesium Total Bilirubin Direct Bilirubin AST ALT Alkaline Phosphatase Troponin I Total Protein Albumin Globulin Albumin/Globulin Ratio Triglycerides Cholesterol LDL Cholesterol VLDL Cholesterol HDL Cholesterol Lipase TSH POC Glucose 128 H 88 103 04/30/20 05/01/20 05/01/20 22:23 04:52 04:52 WBC 11.9 H RBC 3.40 L Hgb 11.0 L Hct 33.5 L MCV 98.5 MCH 32.4 H MCHC 32.8 D RDW Std Deviation 51.8 H RDW Coeff of Mateus 14.7 H Plt Count 184 MPV 11.5 Immature Gran % (Auto) 0.800 Neut % (Auto) 79.3 H Lymph % (Auto) 10.1 L Geary % (Auto) 9.2 Eos % (Auto) 0.3 Baso % (Auto) 0.3 Absolute Neuts (auto) 9.4 H Absolute Lymphs (auto) 1.20 Nucleated RBC % 0 Sodium 137 Potassium 4.3 Chloride 109 H Carbon Dioxide 22.0 Anion Gap 6 BUN 13 Creatinine 0.76 Estim Creat Clear Calc 36.53 Est GFR (MDRD) Af Amer 96 Est GFR (MDRD) Non-Af 79 BUN/Creatinine Ratio 17.1 Glucose 105 Hemoglobin A1c Calcium 8.1 L Phosphorus Magnesium Total Bilirubin Direct Bilirubin AST ALT Alkaline Phosphatase Troponin I Total Protein Albumin Globulin Albumin/Globulin Ratio Triglycerides Cholesterol LDL Cholesterol VLDL Cholesterol HDL Cholesterol Lipase TSH POC Glucose 118 H 05/01/20 05/01/20 06:25 07:36 WBC RBC Hgb Hct MCV MCH MCHC RDW Std Deviation RDW Coeff of Mateus Plt Count MPV Immature Gran % (Auto) Neut % (Auto) Lymph % (Auto) Geary % (Auto) Eos % (Auto) Baso % (Auto) Absolute Neuts (auto) Absolute Lymphs (auto) Nucleated RBC % Sodium Potassium Chloride Carbon Dioxide Anion Gap BUN Creatinine Estim Creat Clear Calc Est GFR (MDRD) Af Amer Est GFR (MDRD) Non-Af BUN/Creatinine Ratio Glucose Hemoglobin A1c Calcium Phosphorus Magnesium Total Bilirubin Direct Bilirubin AST ALT Alkaline Phosphatase Troponin I Total Protein Albumin Globulin Albumin/Globulin Ratio Triglycerides Cholesterol LDL Cholesterol VLDL Cholesterol HDL Cholesterol Lipase TSH POC Glucose 98 86 Clinical Impression(s) from Imaging Studies Chest X-Ray 04/29/20 11:25 IMPRESSION: No acute abnormality is seen. Electronically Signed: Kavin Jimenez MD at 11:55 EDT , Service support , Hepatobiliary Scan Nuclear Medicine 04/30/20 08:57 IMPRESSION: Normal hepatobiliary scintigraphy Electronically Signed: Abhi Pinon MD at 11:43 EDT Tel , Service support , Abdomen Ultrasound 04/30/20 16:16 IMPRESSION: Multiple gallstones. Mildly thickened gallbladder wall with a small amount of pericholecystic fluid. Incidental note is made of a small right pleural effusion. Electronically Signed: Kavin Jimenez MD at 8:03 EDT , Service support , Chest X-Ray 05/01/20 08:05 IMPRESSION: The tip of the endotracheal tube is at the proximal portion of the right mainstem bronchus. It should be withdrawn approximately 3.5 cm. There now is evidence of increased interstitial markings in both lungs worse on the right side suggestive of CHF. Blunting of both costophrenic angles. Electronically Signed: Kavin Jimenez MD at 8:56 EDT , Service support , Current Medications Acetaminophen (Acetaminophen 325 Mg Tablet) 650 mg PO Q6H PRN PRN PRN Reason: Pain Score 1-10/Temp > 100.7 F Last Admin: 04/30/20 14:30 Dose: 650 mg Documented by: Al Hydroxide/Mg Hydroxide (Mag Hydrox/Al Hydrox/Simeth 30 Ml Udc) 30 ml PO Q6H PRN PRN PRN Reason: Gastric Burning Last Admin: 04/30/20 20:33 Dose: 30 ml Documented by: Albuterol Sulfate (Albuterol 2.5 Mg/3 Ml Vial.Neb.) 2.5 mg INHALATION Q2H PRN PRN PRN Reason: SOB/Wheezing Albuterol/Ipratropium (Ipratropium/Albuterol Sulfate 3 Ml Ampul.Neb) 3 ml INHALATION Q6HWA.RT [facility] Last Admin: 05/01/20 06:45 Dose: 3 ml Documented by: Amitriptyline HCl (Amitriptyline 25 Mg Tablet) 25 mg PO QHS [facility] Last Admin: 04/30/20 22:20 Dose: 25 mg Documented by: Aspirin (Aspirin E.C. 81 Mg Tablet) 81 mg PO DAILY [facility] Last Admin: 04/30/20 12:30 Dose: 81 mg Documented by: Budesonide (Budesonide Respules 0.5 Mg/2 Ml Ampul.Neb.) 0.5 mg INHALATION Q12H.RT [facility] Last Admin: 05/01/20 06:45 Dose: 0.5 mg Documented by: Bupropion HCl (Bupropion 75 Mg Tablet) 75 mg PO BID [facility] Last Admin: 04/30/20 22:20 Dose: 75 mg Documented by: Calcium Carbonate (Calcium Carbonate 500 Mg Tablet) 500 mg PO Q6H PRN PRN PRN Reason: HEARTBURN Last Admin: 04/30/20 22:55 Dose: 500 mg Documented by: Carvedilol (Carvedilol 3.125 Mg Tablet) 3.125 mg PO BID [facility] Last Admin: 04/30/20 22:20 Dose: 3.125 mg Documented by: Docusate Sodium (Docusate Sodium 100 Mg Capsule) 100 mg PO BID PRN PRN PRN Reason: Constipation Ezetimibe (Ezetimibe 10 Mg Tablet) 10 mg PO DAILY [facility] Last Admin: 04/30/20 12:30 Dose: 10 mg Documented by: Guaifenesin (Guaifenesin 1,200 Mg Tablet) 1,200 mg PO Q12H PRN PRN Reason: COUGH Piperacillin Sod/Tazobactam (Sod 3.375 gm/ Sodium Chloride) 50 mls @ 12.5 mls/hr IV Q8H [facility] Last Infusion: 05/01/20 06:54 Dose: Infused Documented by: Pantoprazole Sodium 40 mg/ (Sodium Chloride) 110 mls @ 330 mls/hr IV Q24 [facility] Last Infusion: 04/30/20 13:00 Dose: Infused Documented by: Norepinephrine Bitartrate 8 mg (/ Sodium Chloride) 250 mls @ 9.375 mls/hr CONT INF .[id number] [facility]; Protocol Propofol (Diprivan) 1,000 mg in 100 mls @ 3.432 mls/hr CONT INF .Q12H [facility]; Protocol Fentanyl Citrate 1,000 mcg/ (Sodium Chloride) 100 mls @ 2.5 mls/hr CONT INF .Q40H [facility]; Protocol Amiodarone HCl 360 mg/ (Dextrose) 200 mls @ 33.333 mls/hr CONT INF .Q6H [facility] Stop: 05/01/20 15:14 Amiodarone HCl 360 mg/ (Dextrose) 200 mls @ 16.667 mls/hr CONT INF .Q12H [facility] Stop: 05/02/20 03:14 Insulin Human Lispro (Insulin Lispro 100 Unit/Ml Insuln.Pen) 0 unit SC TIDAC [facility]; Protocol Last Admin: 05/01/20 08:39 Dose: Not Given Documented by: Lisinopril (Lisinopril 2.5 Mg Tablet) 2.5 mg PO DAILY [facility] Montelukast Sodium (Montelukast 10 Mg Tablet) 10 mg PO QHS [facility] Last Admin: 04/30/20 22:20 Dose: 10 mg Documented by: Morphine Sulfate (Morphine 2 Mg/Ml Syringe) 2 mg IV Q3H PRN PRN PRN Reason: Pain Score 6-10 Nitroglycerin (Nitroglycerin (Inpatient Use) 0.4 Mg Tab.Subl) 0.4 mg SL Q5M PRN PRN Reason: CARDIAC/CHEST PAIN Last Admin: 04/30/20 23:31 Dose: 0.4 mg Documented by: Ondansetron HCl (Ondansetron 4 Mg/2 Ml Vial) 4 mg IV Q8H PRN PRN PRN Reason: NAUSEA/VOMITING Last Admin: 04/30/20 22:31 Dose: 4 mg Documented by: Pregabalin (Pregabalin 25 Mg Capsule) 25 mg PO BID [facility] Last Admin: 04/30/20 22:20 Dose: 25 mg Documented by: Sertraline HCl (Sertraline 50 Mg Tablet) 50 mg PO DAILY [facility] Last Admin: 04/30/20 12:30 Dose: 50 mg Documented by: Sodium Chloride (0.9% Saline Lock 10 Ml Syringe) 10 - 40 ml IV UD PRN PRN Reason: SALINE FLUSH Last Admin: 04/30/20 22:32 Dose: 30 ml Documented by: Assessment/Plan All Active Problems (Last Updated 04/30/20 @ 07:50 by Jana Madrigal) NSTEMI (non-ST elevated myocardial infarction) (Acute 04/29/20) Takotsubo cardiomyopathy (Acute 04/29/20) COPD exacerbation (Resolved) Chest pain (Resolved) Ischemic foot (Resolved) Lung mass (Resolved)
--- NOTE | 2020-05-01 09:52 | PCM.PN.INT ---
Subjective: The patient is a 74-year-old female, well-known to me from the outpatient pulmonary clinic, who has a history of chronic tobacco dependency and severe COPD, who was initially admitted to the hospital on April 29 with complaints of chest pain. The patient did have an elevated troponin and was taken for cardiac catheterization following evaluation by cardiology. Her cardiac catheterization revealed nonobstructive coronary disease with Takotsubo cardiomyopathy. On the morning of May 01, the patient became unresponsive. CODE BLUE was called. Advanced cardiac life support was initiated on the PCU. The patient was intubated. Return of spontaneous circulation was eventually achieved. Patient was then urgently transferred to the medical intensive care unit for further stabilization. After being admitted to the ICU, a central venous catheter was placed. However, the patient repeatedly went into PEA cardiac arrest, necessitating advanced cardiac life support and numerous rounds of epinephrine and bicarbonate. Despite aggressive resuscitative efforts, the patient remained pulseless with disorganized cardiac activity. Resuscitative efforts were subsequently terminated with the family at the bedside at 0919. Objective: The patient's most recent lab work, culture data and imaging studies have all been personally reviewed. General: - - Nonresponsive/comatose, dusky/cyanotic in appearance, endotracheal tube in place HEENT: Atraumatic, Normocephalic Oral: - - Endotracheal tube in place Neck: Supple, No Nodes Lungs: - - Globally diminished air movement with increased AP diameter Cardiovascular: Irregular Rate Abdomen: Soft, Non Tender Extremities: No clubbing, No cyanosis, No edema Neurological: - - Unable to assess neurological status. Vital Signs Temp Pulse Resp BP Pulse Ox 98.4 F 58 L 12 97/50 L 93 05/01/20 06:26 05/01/20 08:32 05/01/20 08:32 05/01/20 07:42 05/01/20 07:40 Oxygen Flow Rate (L/min) 2 Oxygen Delivery Method Nasal Cannula Weight: 126 lb 1.671 oz Body Mass Index (BMI) 23.6 Finger Stick Blood Glucose 119 Intake and Output for Last 24 Hours 04/29/20 04/30/20 05/01/20 23:59 23:59 23:59 Intake Total 1994 2160.83 / 2160.83 1069.17 / 1069.17 Balance 1994 2160.83 / 2160.83 1069.17 / 1069.17 Labs (Last 48 Hours) 04/29/20 04/29/20 04/29/20 11:20 11:20 11:20 WBC 10.2 RBC 4.76 Hgb 14.6 Hct 45.5 MCV 95.6 MCH 30.7 MCHC 32.1 RDW Std Deviation 47.7 H RDW Coeff of Mateus 13.5 Plt Count 273 MPV 11.5 Immature Gran % (Auto) 0.300 Neut % (Auto) 72.0 H Lymph % (Auto) 15.1 L Leake % (Auto) 11.5 H Eos % (Auto) 0.6 Baso % (Auto) 0.5 Absolute Neuts (auto) 7.3 Absolute Lymphs (auto) 1.54 Nucleated RBC % 0 Sodium 142 Potassium 4.4 Chloride 106 Carbon Dioxide 32.0 Anion Gap 4 L BUN 19 H Creatinine 0.91 Estim Creat Clear Calc 40.14 Est GFR (MDRD) Af Amer 78 Est GFR (MDRD) Non-Af 64 BUN/Creatinine Ratio 20.8 H Glucose 84 Hemoglobin A1c Calcium 9.8 Phosphorus Magnesium Total Bilirubin 0.70 Direct Bilirubin 0.15 AST 83 H ALT 37 Alkaline Phosphatase 69 Troponin I 10.700 H* Total Protein 6.9 Albumin 3.5 Globulin 3.4 Albumin/Globulin Ratio Triglycerides Cholesterol LDL Cholesterol VLDL Cholesterol HDL Cholesterol Lipase 51 L TSH POC Glucose 04/29/20 04/29/20 04/29/20 16:29 16:50 21:27 WBC RBC Hgb Hct MCV MCH MCHC RDW Std Deviation RDW Coeff of Mateus Plt Count MPV Immature Gran % (Auto) Neut % (Auto) Lymph % (Auto) Leake % (Auto) Eos % (Auto) Baso % (Auto) Absolute Neuts (auto) Absolute Lymphs (auto) Nucleated RBC % Sodium Potassium Chloride Carbon Dioxide Anion Gap BUN Creatinine Estim Creat Clear Calc Est GFR (MDRD) Af Amer Est GFR (MDRD) Non-Af BUN/Creatinine Ratio Glucose Hemoglobin A1c Calcium Phosphorus Magnesium Total Bilirubin Direct Bilirubin AST ALT Alkaline Phosphatase Troponin I Total Protein Albumin Globulin Albumin/Globulin Ratio Triglycerides Cholesterol LDL Cholesterol VLDL Cholesterol HDL Cholesterol Lipase TSH POC Glucose 56 L 85 131 H 04/30/20 04/30/20 04/30/20 05:04 05:04 05:04 WBC 11.3 H RBC 3.85 L Hgb 11.8 L Hct 38.4 MCV 99.7 H MCH 30.6 MCHC 30.7 L RDW Std Deviation 51.1 H RDW Coeff of Mateus 14.0 Plt Count 189 MPV 11.6 Immature Gran % (Auto) 0.400 Neut % (Auto) 77.0 H Lymph % (Auto) 10.0 L [place] % (Auto) 11.4 H Eos % (Auto) 1.0 Baso % (Auto) 0.2 Absolute Neuts (auto) 8.7 H Absolute Lymphs (auto) 1.13 Nucleated RBC % 0 Sodium 140 Potassium 4.1 Chloride 109 H Carbon Dioxide 25.0 Anion Gap 6 BUN 17 Creatinine 0.79 Estim Creat Clear Calc 36.53 Est GFR (MDRD) Af Amer 92 Est GFR (MDRD) Non-Af 76 BUN/Creatinine Ratio 21.6 H Glucose 124 H Hemoglobin A1c 5.9 H Calcium 8.1 L Phosphorus 4.1 Magnesium 2.1 Total Bilirubin 0.40 Direct Bilirubin AST 79 H ALT 36 Alkaline Phosphatase 64 Troponin I Total Protein 5.6 L Albumin 2.7 L Globulin 2.9 Albumin/Globulin Ratio 0.9 Triglycerides 149 Cholesterol 179 LDL Cholesterol 111 VLDL Cholesterol 30 HDL Cholesterol 38 L Lipase TSH 1.68 POC Glucose 04/30/20 04/30/20 04/30/20 06:32 13:09 18:29 WBC RBC Hgb Hct MCV MCH MCHC RDW Std Deviation RDW Coeff of Mateus Plt Count MPV Immature Gran % (Auto) Neut % (Auto) Lymph % (Auto) [place]ake % (Auto) Eos % (Auto) Baso % (Auto) Absolute Neuts (auto) Absolute Lymphs (auto) Nucleated RBC % Sodium Potassium Chloride Carbon Dioxide Anion Gap BUN Creatinine Estim Creat Clear Calc Est GFR (MDRD) Af Amer Est GFR (MDRD) Non-Af BUN/Creatinine Ratio Glucose Hemoglobin A1c Calcium Phosphorus Magnesium Total Bilirubin Direct Bilirubin AST ALT Alkaline Phosphatase Troponin I Total Protein Albumin Globulin Albumin/Globulin Ratio Triglycerides Cholesterol LDL Cholesterol VLDL Cholesterol HDL Cholesterol Lipase TSH POC Glucose 128 H 88 103 04/30/20 05/01/20 05/01/20 22:23 04:52 04:52 WBC 11.9 H RBC 3.40 L Hgb 11.0 L Hct 33.5 L MCV 98.5 MCH 32.4 H MCHC 32.8 D RDW Std Deviation 51.8 H RDW Coeff of Mateus 14.7 H Plt Count 184 MPV 11.5 Immature Gran % (Auto) 0.800 Neut % (Auto) 79.3 H Lymph % (Auto) 10.1 L [place] % (Auto) 9.2 Eos % (Auto) 0.3 Baso % (Auto) 0.3 Absolute Neuts (auto) 9.4 H Absolute Lymphs (auto) 1.20 Nucleated RBC % 0 Sodium 137 Potassium 4.3 Chloride 109 H Carbon Dioxide 22.0 Anion Gap 6 BUN 13 Creatinine 0.76 Estim Creat Clear Calc 36.53 Est GFR (MDRD) Af Amer 96 Est GFR (MDRD) Non-Af 79 BUN/Creatinine Ratio 17.1 Glucose 105 Hemoglobin A1c Calcium 8.1 L Phosphorus Magnesium Total Bilirubin Direct Bilirubin AST ALT Alkaline Phosphatase Troponin I Total Protein Albumin Globulin Albumin/Globulin Ratio Triglycerides Cholesterol LDL Cholesterol VLDL Cholesterol HDL Cholesterol Lipase TSH POC Glucose 118 H 05/01/20 05/01/20 06:25 07:36 WBC RBC Hgb Hct MCV MCH MCHC RDW Std Deviation RDW Coeff of Mateus Plt Count MPV Immature Gran % (Auto) Neut % (Auto) Lymph % (Auto) Leake % (Auto) Eos % (Auto) Baso % (Auto) Absolute Neuts (auto) Absolute Lymphs (auto) Nucleated RBC % Sodium Potassium Chloride Carbon Dioxide Anion Gap BUN Creatinine Estim Creat Clear Calc Est GFR (MDRD) Af Amer Est GFR (MDRD) Non-Af BUN/Creatinine Ratio Glucose Hemoglobin A1c Calcium Phosphorus Magnesium Total Bilirubin Direct Bilirubin AST ALT Alkaline Phosphatase Troponin I Total Protein Albumin Globulin Albumin/Globulin Ratio Triglycerides Cholesterol LDL Cholesterol VLDL Cholesterol HDL Cholesterol Lipase TSH POC Glucose 98 86 Clinical Impression(s) from Imaging Studies Chest X-Ray 04/29/20 11:25 IMPRESSION: No acute abnormality is seen. Electronically Signed: Kavni Jimenez MD at 11:55 EDT , Service support , Hepatobiliary Scan Nuclear Medicine 04/30/20 08:57 IMPRESSION: Normal hepatobiliary scintigraphy Electronically Signed: Abhi Pinon MD at 11:43 EDT Tel , Service support , Abdomen Ultrasound 04/30/20 16:16 IMPRESSION: Multiple gallstones. Mildly thickened gallbladder wall with a small amount of pericholecystic fluid. Incidental note is made of a small right pleural effusion. Electronically Signed: Kavin Jimenez MD at 8:03 EDT , Service support , Chest X-Ray 05/01/20 08:05 IMPRESSION: The tip of the endotracheal tube is at the proximal portion of the right mainstem bronchus. It should be withdrawn approximately 3.5 cm. There now is evidence of increased interstitial markings in both lungs worse on the right side suggestive of CHF. Blunting of both costophrenic angles. Electronically Signed: Kavin Jimenez MD at 8:56 EDT , Service support , Medical Necessity - Tobacco Use Smoking Status: Former smoker Tobacco Use: Cigarettes Assessment/Plan All Active Problems (Last Updated 04/30/20 @ 07:50 by Jana Madrigal) NSTEMI (non-ST elevated myocardial infarction) (Acute 04/29/20) Takotsubo cardiomyopathy (Acute 04/29/20) COPD exacerbation (Resolved) Chest pain (Resolved) Ischemic foot (Resolved) Lung mass (Resolved) TIME: A total of 97 minutes of critical care time was spent at the bedside delivering advanced cardiac life support in an attempt to stabilize the patient, along with ventilator management and medical management of her presenting medical issues, review of all data and collaboration with the care team. ([id number]) Procedures: [id number] Critial Care Addl 30 Min [id number]: [id number] Critical care first hour
--- NOTE | 2020-05-01 11:35 | PCM.HOSP.N ---
Hospitalist Note Rapid response called early this morning prior to CODE BLUE. Per discussion with nursing patient had been fine had just gotten up to the bathroom and was doing well and when they returned to evaluate her she was dusky appearing, appeared to have some respiratory distress, and was not interacting with them appropriately. Upon my arrival she was in Trendelenburg. I was able to give her a gentle sternal rub to which she open her eyes and responded to her name and interacted some but she was not at baseline. Her blood sugar was 86. She was hypotensive and fluids were wide open. She then became unresponsive and SUDHA BOYER was called.
--- NOTE | 2020-05-01 11:38 | PCM.HOSP.N ---
Hospitalist Note ET tube placement Emergent A 4 Mac blade was utilized and the vocal cords were visualized with a grade 1 view. A 7.5 ET tube was placed in the airway at 25 cm at the lips without difficulty. There was positive color change on the end-tidal CO2 monitor, condensation in the ET tube, and bilateral breath sounds. Upon review of the chest x-ray the tip of the ET tube was slightly in the right mainstem and therefore the ET tube was pulled back 2 cm. She bagged easily following ET tube placement.
--- NOTE | 2020-05-01 11:40 | PCM.HOSP.N ---
Hospitalist Note Central venous catheter placement Emergent but family at bedside and gave consent The right neck was evaluated with ultrasound and a large right IJ was identified. Proceduralists placed the And sterilized her hands and then placed sterile gloves and gown. The CVC kit was opened. The right neck was sterilized with chlorhexidine prep and then draped with a sterile drape. A sterile probe cover was then placed over the ultrasound probe and again the right IJ was identified. This area was anesthetized with lidocaine. Using Seldinger technique the right internal jugular vein was accessed, dilated, and the central venous catheter was placed without difficulty. There was positive blood return and easy sterile flush all 3 ports. The area was then cleaned again and sutures were placed. The line was then covered with a sterile dressing and chest x-ray was obtained to confirm placement.
--- NOTE | 2020-05-01 11:46 | EXP.PCM_ITS ---
Preliminary Cause of Cardiac arrhythmia secondary to Takotsubo cardiomyopathy Date of Admission: 04/29/20 Date of : 05/01/20 - Principle Diagnosis Takotsubo cardiomyopathy Problem List: Active and Suspected Problems (Last Updated 04/30/20 @ 07:50 by Jana Madirgal) Takotsubo cardiomyopathy Acute cholecystitis Hospital Course Ms. Ramachandran is a 74-year-old white female who presented to [facility] on 04/29/2020 with the chief complaint of chest pain. She had a past medical history of bilateral carotid artery stenosis, stage III COPD with concurrent tobacco abuse, DM-2, hypertension, chronic cough, diabetic neuropathy, depression, and hyperlipidemia. Again, on presentation she was complaining of chest pain that was GERD-like in nature. She had been reporting the pain had been going on for approximately 1 week and that the pain was burning and substernal in nature and radiated into her neck. When it occurred it lasted for approximately 10 minutes at a time and she reported her pain to be 3 out of 10 at best and 10 out of 10 at worst. She had noticed increased symptoms with exertion but did report an increase in symptoms with eating spicy food. She reported some intermittent nausea but no vomiting, diaphoresis, or shortness of breath. She reported at the time of admission that she felt better when she was sitting up in bed with pillows. The EKG done in the emergency department was sinus rhythm but ST depression was noted in lead II, aVF, and lead V4 through V6. A troponin was obtained and was 10.7 on the day of admission. She was taken emergently to the [facility] after getting 1 dose of Brilinta and aspirin. LHC revealed nonobstructive coronary arteries but severe anterior hypokinesis and an EF of 35% which was consistent with Takotsubo cardiomyopathy. She was placed on optimal medical therapy with continued statin, low-dose beta-albino, and low-dose SOTERO inhibitor. Her hydrochlorothiazide was stopped at that time. Further work-up into her persistent chest pain/GERD was performed. A right upper quadrant ultrasound was suggestive of acute cholecystitis with multiple gallstones noted and a mildly thickened gallbladder with pericholecystic fluid. General surgery was consulted at that time and a HIDA scan was suggested. The HIDA scan was consistent with acute cholecystitis and at general surgery's recommendations a per Geri tube was to be placed on the a.m. of 05/01/2020. Surgical intervention was unable to be performed secondary to her recent Brilinta dose. She was also placed on Zosyn on the morning of 04/30/2020. On the a.m. of 05/01/2020 a rapid response team was called secondary to decreased responsiveness and change in respiratory status. Per discussion with the nursing staff she had been fine earlier that morning and actually had gotten up to go to the bathroom; when they came back in to reassess her she appeared to be in respiratory distress and had decreased level of mentation. A rapid response team was called at that time and unfort unately this progressed into a CODE BLUE. She overall suffered 3 CODE BLUE episodes. She was intubated with ease during her first CODE BLUE and given the fact that she did not improve dramatically after intubation I suspect this was a cardiac arrest most likely related to her Takotsubo cardiomyopathy and reduced EF. See code notes for details. On her third CODE BLUE she repeatedly went into PEA despite multiple rounds of epinephrine, bicarbonate, and an amiodarone bolus. Despite aggressive measures resuscitation efforts were unsuccessful. Resuscitative efforts were terminated at 919 and the patient shortly thereafter. The patient's family was at bedside at the time of her . Inpatient E&M: 00832 [facility] Select Codes - Hospitalists' Procedures Procedures: 97653 Insert Emergency Airway, 95365 Insert Non-tunnel CV Cath, 46692 US Guide Vascular Access
--- NOTE | 2020-05-01 11:58 | CHAPLAIN ---
Type of Pastoral Visit ___ Initial Visit ___ Follow-up Visit ___ On-call Visit ___ General Patient Visit ___ Spiritual Assessment ___ Family Conference _x__ Bereavement ___ Rapid Response ___ Code Blue ___ Other (describe below) Pastoral Care Referral From ___ Patient _x__ Family ___ Nurse ___ Physician _x__ Crop Roller ___ Software Test And Validation Engineer ___ Other (describe below) Sacrament/Intervention ___ Active listening ___ Anointing ___ Pentecostal _x__ Bereavement ___ Communion ___ Aye exploration ___ ___ Life review _x__ Prayer ___ Reconciliation ___ Sacrament of Sick _x__ Supportive presence ___ Wedding ___ Other (describe below) Pastoral Comments message had been left on voicemail about patient and request of family for support at of patient; met with family members in room and gave presence, opportunity to talk about the , listen to requests for spiritual strength and support, and prayer; family indicate patient was of the [employer] aye but not currently active in a religion fellowship; offer of ongoing support given as other family members are coming to hospital; offer of support to staff.
--- NOTE | 2020-05-01 12:02 | NURSING ---
per [facility], patient received a total of 13 doses of epinephrine 1 mg IV, 5 amps of sodium bicarb, 2L of NS, atropine 0.5 mg IV x1, amiodarone 300 mg IV x1.
== END 2020-05-01 09:19 | DRG 287 ==
LOC: ED 11:45 → PCU 04-30 07:20 → ICU 05-01 08:10
PROVIDERS: Anesthesiology; Admitting Provider Internal Medicine; Emergency Provider Emergency Medicine; PCP Student in an Organized Health Care Education/Training Program; Visit Provider Internal Medicine
DX: I51.81 Takotsubo syndrome (principal); J96.11 Chronic respiratory failure with hypoxia; K81.0 Acute cholecystitis; I46.9 Cardiac arrest, cause unspecified; E78.5 Hyperlipidemia, unspecified; E11.51 Type 2 diabetes mellitus with diabetic peripheral angiopathy without gangrene; E11.40 Type 2 diabetes mellitus with diabetic neuropathy, unspecified; J30.2 Other seasonal allergic rhinitis; K21.9 Gastro-esophageal reflux disease without esophagitis; F32.9 Major depressive disorder, single episode, unspecified; F17.210 Nicotine dependence, cigarettes, uncomplicated; I25.10 Atherosclerotic heart disease of native coronary artery without angina pectoris; J44.9 Chronic obstructive pulmonary disease, unspecified; Z53.9 Procedure and treatment not carried out, unspecified reason; I65.23 Occlusion and stenosis of bilateral carotid arteries; I10 Essential (primary) hypertension; L40.9 Psoriasis, unspecified; Z79.02 Long term (current) use of antithrombotics/antiplatelets; Z79.1 Long term (current) use of non-steroidal anti-inflammatories (NSAID); Z79.899 Other long term (current) drug therapy; Z80.8 Family history of malignant neoplasm of other organs or systems; Z82.0 Family history of epilepsy and other diseases of the nervous system; Z83.3 Family history of diabetes mellitus
CPT/HCPCS: 31500; 71045; 76705; 78226; 80048; 80053; 80061; 80076; 82962; 83036; 83690; 83735; 84100; 84443; 84484; 85025; 92950; 93005; 93306; 93308; 93458; 94002; 94640; 94762; 97802; 99152; 99153; 99251; 99285; A9537; J7030; J7040; J7050; Q9957; Q9967; A4216; C1769; C1894; C8929; G0463; J2405; J3010